=== PATIENT | male | born 1965 | race Caucasian/White ===

== ENCOUNTER 2023-05-21 10:51 | Outpatient (REF) | payer OTHER, SELFPAY ==
[2023-05-21 13:39] LABS: MANUAL DIFF FLAG NO
[2023-05-21 13:52] LABS: Basophils Absolute Auto 0.1 X10*3/uL (0.0-0.2); Basophils Percent Auto 0.8 % (0-2); Eosinophils Absolute Auto 0.1 X10*3/uL (0.0-0.4); Eosinophils Percent Auto 1.7 % (0-4); Hematocrit 47.5 % (42.0-52.0); Hemoglobin 14.8 g/dl (14.0-18.0); Imm Gran Abs Auto 0.06 X10*3/uL (0.00-0.03); Imm Gran Pct Auto 0.8 % (0.0-0.4); Lymphocytes Absolute Auto 2.3 X10*3/uL (1.2-4.9); Lymphocytes Percent Auto 29.7 % (20-40); Mean Corpuscular HGB Conc 31.2 g/dl (31.0-36.0); Mean Corpuscular Hemoglobin 28.2 pg (27.0-33.0); Mean Corpuscular Volume 90.5 fL (80.0-98.0); Mean Platelet Volume 9.5 fL (9.4-12.4); Monocytes Absolute Auto 0.5 X10*3/uL (0.1-1.2); Monocytes Percent Auto 7.1 % (2-11); Neutrophils Absolute Auto 4.6 x10*3/uL (2.0-8.3); Neutrophils Percent Auto 59.9 % (45-73); Platelet Count 345 X10*3/uL (160-400); Red Blood Count 5.25 X10*6/uL (4.60-5.80); Red Cell Distribution Width 14.7 % (11.0-16.0); White Blood Count 7.6 X10*3/uL (4.8-10.8)
[2023-05-21 14:21] LABS: Estimated Average Glucose 111 mg/dL; Hemoglobin A1c % 5.5 %
[2023-05-21 14:52] LABS: Alanine Aminotransferase 14 U/L (0-40); Albumin Level 3.9 g/dL (3.5-5.0); Alkaline Phosphatase 80 U/L (39-117); Anion Gap 12 (12-20); Aspartate Amino Transferase 14 U/L (5-37); Bilirubin Direct 0.1 mg/dL (0.0-0.5); Bilirubin Total 0.3 mg/dL (0.0-1.0); Blood Urea Nitrogen 14 mg/dL (9-16); Calcium 9.7 mg/dL (8.4-10.2); Carbon Dioxide 29 mmol/L (22-29); Chloride 101 mmol/L (96-108); Cholesterol 164 mg/dL; Estimated Glomerular Filt Rate > 60; Glucose Random 100 mg/dL (60-115); HDL Cholesterol 46 mg/dL; LDL Cholesterol Calculated 96 mg/dl; Potassium 4.1 mmol/L (3.3-5.1); Sodium 138 mmol/L (135-145); Total Protein 7.5 g/dL (6.5-8.0); Triglycerides 113 mg/dL
[2023-05-21 15:08] LABS: TSH reflex Free T4 27.34 uIU/mL (0.32-4.0)
[2023-05-21 16:48] LABS: Free T4 (Free Thyroxine) 0.87 ng/dL (0.71-1.85)
[2023-05-22 08:28] LABS: HIV AB/AG Nonreactive (Nonreactive); HIV Num 1 0.07 S/CO (0.00-0.99)
[2023-05-23 07:09] LABS: Prolactin 11.3 ng/mL (2.0-18.0)
[2023-05-27 02:58] LABS: VITAMIN D (1,25 OH) D3 35 pg/mL; Vit D (1,25-Dihydroxy) Total 35 pg/mL (18-72); Vitamin D (1,25 OH) D2 <8 pg/mL
[2023-05-27 09:14] LABS: Testosterone, Total 27 ng/dL (250-1100)
== END 2023-05-21 10:52 | disposition home or self-care (01) ==
LOC: HO.HHCL 10:51
PROVIDERS: Visit Provider Family Medicine
DX: Z11.4 Encounter for screening for human immunodeficiency virus [HIV] (principal); E03.9 Hypothyroidism, unspecified; F32.A Depression, unspecified; E78.5 Hyperlipidemia, unspecified; E66.01 Morbid (severe) obesity due to excess calories; F64.9 Gender identity disorder, unspecified; I10 Essential (primary) hypertension; Z00.00 Encounter for general adult medical examination without abnormal findings; R40.0 Somnolence
CPT/HCPCS: 36415; 80048; 80061; 80076; 82652; 83036; 84146; 84403; 84439; 84443; 85025; 87389

== ENCOUNTER 2024-03-14 13:41 | Outpatient (REF) | payer OTHER, SELFPAY ==
[2024-03-18 23:43] LABS: Cotinine, U <2 ng/mL; Nicotine, U <2 ng/mL
== END 2024-03-14 13:42 | disposition home or self-care (01) ==
LOC: HO.LAB 13:41
PROVIDERS: PCP Family Medicine; Visit Provider Family Medicine
DX: Z79.891 Long term (current) use of opiate analgesic (principal)
CPT/HCPCS: 80323

== ENCOUNTER 2024-05-10 12:17 | Outpatient (REF) | payer OTHER, SELFPAY ==
[2024-05-10 13:11] LABS: Estimated Average Glucose 117 mg/dL; Hemoglobin A1c % 5.7 % (<6.0)
[2024-05-10 13:39] LABS: Alanine Aminotransferase 11 U/L (0-40); Albumin Level 4.3 g/dL (3.5-5.0); Alkaline Phosphatase 82 U/L (39-117); Anion Gap 12 (12-20); Aspartate Amino Transferase 14 U/L (5-37); Bilirubin Direct 0.1 mg/dL (0.0-0.5); Bilirubin Total 0.3 mg/dL (0.0-1.0); Blood Urea Nitrogen 16 mg/dL (9-16); Calcium 9.8 mg/dL (8.4-10.2); Carbon Dioxide 32 mmol/L (22-29); Chloride 103 mmol/L (96-108); Cholesterol 166 mg/dL (<200); Estimated Glomerular Filt Rate > 60; Glucose Random 85 mg/dL (60-115); HDL Cholesterol 49 mg/dL (>40); LDL Cholesterol Calculated 100 mg/dL (<100); Potassium 4.5 mmol/L (3.3-5.1); Sodium 142 mmol/L (135-145); Total Protein 7.8 g/dL (6.5-8.0); Triglycerides 87 mg/dL (<150)
[2024-05-10 13:59] LABS: TSH reflex Free T4 77.03 uIU/mL (0.32-4.0)
[2024-05-15 22:49] LABS: Testosterone, Total 43 ng/dL (250-1100)
[2024-05-17 01:03] LABS: Estradiol Ultra Sensitive 43 pg/mL (< OR = 29)
== END 2024-05-10 12:18 | disposition home or self-care (01) ==
LOC: HO.HHCL 12:17
PROVIDERS: Visit Provider Family Medicine
DX: E66.01 Morbid (severe) obesity due to excess calories (principal); F64.9 Gender identity disorder, unspecified; I10 Essential (primary) hypertension; E03.9 Hypothyroidism, unspecified; Z13.1 Encounter for screening for diabetes mellitus
CPT/HCPCS: 36415; 80048; 80061; 80076; 82670; 83036; 84403; 84439; 84443

== ENCOUNTER 2024-05-23 08:48 | Outpatient (AMB) | payer OTHER, SELFPAY ==
--- NOTE | 2024-05-23 08:53 | A.OFFVIS_ITS ---
Vital Signs 05/23/24 09:04 Height 5 ft 7 in Weight 392 lb BMI 61.4 BP 186/86 H Blood Pressure Location Rt radial Position Sitting Pulse 72 Intake Visit Reasons: embedded earring Intake Note: Patient referred by pcp Dr. Mckeon for embedded earring on rt ear. X1m Would like to have it surgically removed. Patient c/o: denies pain, oozing. Wide Area Network Administrator Required: No Accompanied by: GRISEL Arriaga Allergies No Known Allergies Allergy (Unverified 05/23/24 08:58) Medication List - Last Reconciled 05/23/24 by Villa Gomez MD aspirin 81 mg PO DAILY bupropion HCl XL 300 mg PO DAILY estradiol mg PO finasteride 5 mg PO DAILY fluoxetine 40 mg PO DAILY hydroxyzine HCl 25 mg PO DAILY ibuprofen 800 mg PO TID levothyroxine 200 mcg PO DAILY nystatin 1 appl topical BID-TID sennosides (senna) 17.2 mg PO DAILY HPI Comments Details: Patient presents with her significant other. At complaint is that she has an embedded earring in the major helix of her right ear. She has multiple areas there. She has a thickened area which she claims is where the hearing his imbedded. Never had such issues before. Chart was reviewed and patient evaluate [facility] Medical History (Updated 05/23/24 @ 09:01 by KWASI Arellano) HTN (hypertension) Social History (Updated 05/23/24 @ 09:01 by KWASI Arellano) Patient Tobacco Use Status: Former Tobacco user Tobacco use type: Cigarette Physical Exam Vital Signs: Last Vital Signs Pulse 72 05/23/24 09:04 BP 186/86 H 05/23/24 09:04 BMI result Body Mass Index 61.4 HEENT Other: Patient has multiple firings involving the major helix of the right ear. There is 1 partially area which is indurated/scar which is where the patient states embedded earring is. Office Procedures Excision Details: Risks, benefits, alternatives of ear and exploration for retrieval of foreign hudson dy were reviewed with the patient and included but not limited to bleeding, infection, recurrence, numbness, pain, scarring the patient wished to proceed. Consent signed. All questions answered. After appropriate positioning, patient underwent 1% lidocaine and Betadine prep and longitudinal incision was made over the indurated area with the patient states is where the retained foreign body is situated. Wound was extensively explored with no evidence of any retained hearing. Wound was irrigated, secured hemostasis, and closed using interrupted inverted dermal 3-0 Vicryl sutures followed by bacitracin and a sterile dressing. Patient tolerated procedure well Procedure code (CPT) selection complete Office Meds lidocaine 1 %-epinephrine 1:100,000 injection solution Performing Provider: Villa Gomez MD Performing Location: [facility] Administered by: Villa Gomez MD on 05/23/24 09:42 Dose Route Admin Location Dispensed Lot Number Expiration Date [facility] Oyster Culturist 7 mL Infiltration 7 mL Assessment & Plan Assessment & Plan (1) Foreign body (FB) in soft tissue: Code(s): M79.5 - Residual foreign body in soft tissue Category: Surgical Plan: Patient and significant other have been given local instructions including bacitracin each day, ice to the wound, may shower in 2 days, and will follow-up p.r.n.. All questions answered Orders: Orders AMB Excision Today M79.5 - Residual foreign body in soft tissue Medications: New lidocaine-epinephrine 1 %-1:100,000 7 mL Infiltration ONCE 30 mL 0RF M79.5 - Residual foreign body in soft tissue Coding Level of Care Code New Pt Level 5 (06527) Diagnoses Foreign body (FB) in soft tissue M79.5
[2024-05-23 09:04] VITALS: BP 186/86; PULSE 72; BMI 61.4
== END 2024-05-23 09:35 | disposition home or self-care (01) ==
PROVIDERS: PCP Family Medicine; Visit Provider Surgery
DX: M79.5 Residual foreign body in soft tissue (principal)
CPT/HCPCS: 10120; 99204

== ENCOUNTER → 2024-05-23 08:48 | Outpatient (BNVA) | payer OTHER, SELFPAY | PROVIDERS: PCP Family Medicine; Visit Provider Surgery | DX: M79.5 Residual foreign body in soft tissue (principal) | CPT/HCPCS: 10120; 99202 ==

== ENCOUNTER 2024-07-12 10:45 | Outpatient (REF) | payer OTHER, SELFPAY ==
[2024-07-12 13:40] LABS: Creatinine Urine 92.43 mg/dL; Microalbum/Creatinine Ratio Ur 70.3 ug/mg cr (<30)
== END 2024-07-12 10:46 | disposition home or self-care (01) ==
LOC: HO.LAB 10:45
PROVIDERS: PCP Family Medicine; Visit Provider Family Medicine
DX: I10 Essential (primary) hypertension (principal)
CPT/HCPCS: 82043; 82570

== ENCOUNTER 2024-07-15 11:09 | Outpatient (REF) | payer OTHER, SELFPAY ==
[2024-07-28 22:18] LABS: Cotinine, U <2 ng/mL; Nicotine, U <2 ng/mL
== END 2024-07-15 11:10 | disposition home or self-care (01) ==
LOC: HO.LAB 11:09
PROVIDERS: Visit Provider Surgery Plastic and Reconstructive Surgery
DX: F64.9 Gender identity disorder, unspecified (principal); Z78.9 Other specified health status
CPT/HCPCS: 80323

== ENCOUNTER 2024-11-11 12:52 | Outpatient (AMB) | payer OTHER, SELFPAY ==
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
--- OUTSIDE RECORDS SUMMARY | 2024-11-11 12:54 | XMS_ITS | Continuity of Care Document ---
Author Organization [facility] Address [address] [place] [id number]- Care Team Providers Care Ground Water Contractor Name Role Phone Mary Carmen Mckeon MD Primary Care Physician [id number] Date(s): 09/26/24 - 10/26/[address] [address]- Attending Physician: Ronald Hayes Admitting Physician: Ronald Hayes Referring Physician: Ronald Hayes Encounter Type: Triage Medications aspirin 81 mg oral tablet 1 tablet = 81 mg, By Mouth, Daily, 0 Refills, Maintenance, 11/04/18 2:52:34 PM EST Start Date: 11/04/18 Status: Ordered Repeat number: 1 BuPROpion = 300 mg, By Mouth, 0 Refills, Maintenance, 11/04/18 2:52:54 PM EST Start Date: 11/04/18 Status: Ordered Repeat number: 1 Estradiol 0 Refills, Maintenance, 11/04/18 2:53:25 PM EST Start Date: 11/04/18 Status: Ordered Repeat number: 1 Fluoxetine = 40 mg, By Mouth, 0 Refills, Maintenance, 11/04/18 2:53:45 PM EST Start Date: 11/04/18 Status: Ordered Repeat number: 1 levothyroxine 200 mcg (0.2 mg) intravenous injection 0 Refills, Maintenance, 11/04/18 2:55:09 PM EST Start Date: 11/04/18 Status: Ordered Repeat number: 1 Proscar 5 mg oral tablet 1 tablet = 5 mg, By Mouth, Daily, 0 Refills, Maintenance, 11/04/18 2:55:22 PM EST Start Date: 11/04/18 Status: Ordered Repeat number: 1 Spironolactone By Mouth, 0 Refills, Maintenance, 11/04/18 2:55:37 PM EST Start Date: 11/04/18 Status: Ordered Repeat number: 1 Social History Social History Type Response Smoking Status Former smoker, quit more than 30 days ago entered on: 11/04/18 Sex Sex Representation Male (finding) Patient Care team information Care Team Personnel Name: Mike BACK , Mary Carmen Lance Position: S Outreach Member Role: PCP Address: [address] [place] [address] Telecom: Care Team Related Persons Name: MAGED ALAN Insurance Providers Guarantor name: [facility] Information #: 1 Payer: [facility]ONE [employer] Member Number: NA Policy Number: NA Group Number: [id number]
--- OUTSIDE RECORDS SUMMARY | 2024-11-11 12:54 | XMS_ITS | Data Portability ---
Author Organization [employer] [facility], [facility] Address [address] [place] [id number] Care Team Providers Care Television Host Name Role Phone [facility] Referring Provider [phone] Assessment Encounter Date Assessment Date Assessment LastModified by Organization Details LastModified Time 04/06/2023 04/06/2023 I provided real -time medical direction via phone for this encounter, and was available for additional phone based assistance as needed. I have reviewed and agree with the Assessment and Plan as documented by the Data Entry Processor. Patient given the opportunity to ask questions. Advised if develops CP/severe SOB/turning blue// syncope/ hi fever - to call 911- otherwise f/u with pcp this week- verbalized understanding of instructions [email or web address] Not available 04/06/2023 22:33:17 Plan of Treatment Reminders Order Date Submit Date Provider Last Modified By Organization Details Last Modified Time Details Appointments None recorded. Lab BMP, serum or plasma 2022 023 [email or web address] 0 [facility], [address] [place] [address], [phone], 22:35:45 Referral None recorded. Procedures None recorded. Surgeries None recorded. Imaging None recorded. Medication Orders Tylenol Arthritis Pain 650 mg tablet,ext ended release 2022 023 [email or web address] 0 [facility], [address] [place], [address], 3 22:30:38 ketorolac 30 mg/mL (1 mL) injection solution 2022 023 [email or web address] 0 [facility], [address] [place], [address], 3 22:30:38 Patient TargetsNo targets recorded. Patient InstructionsNo instructions recorded. Reason for Referral None Reported. Results Created Date Observation Date Name Description Value Unit Range Abnormal Flag Note LastModifiedBy Organization Detail LastModifiedTime 04/06/2004/06/2023 BMP, serum or plasm a BUN 18 Not Available Main - [facility] [address], [address], 04/06/2023 15:17:29 04/06/2004/06/2023 BMP, serum or plasm a Ca I erin 1.14 Not Available Main - [address], [address], 04/06/2023 15:17:29 04/06/2004/06/2023 BMP, serum or plasm a CI- 97 Not Available Main - Ins [address], [address], 04/06/2023 15:17:29 04/06/2004/06/2023 BMP, serum or plasm a CRE 1.3 Not Available Main - [facility] [address], [address], 04/06/2023 15:17:29 04/06/2004/06/2023 BMP, serum or plasm a GLU 96 Not Available Main - [facility] [address], [address], 04/06/2023 15:17:29 04/06/2004/06/2023 BMP, serum or plasm a K+ 4.4 Not Available Main - Ins [address], [address], 04/06/2023 15:17:29 04/06/2004/06/2023 BMP, serum or plasm a Na+ 138 Not Available Main - Ins [address], [address], 04/06/2023 15:17:29 04/06/2004/06/2023 BMP, serum or plasm a tCO2 32 Not Available Main - Ins [facility] [address] [place] [address], [place], [address], 04/06/2023 15:17:29 Result Notes None recorded. Medical Equipment None Reported. Allergies No known drug allergies Medications Name Sig Start Date Stop Date Status Note LastModified by Organization Details LastModified Time fluoxetine 40 mg capsule active Not Available Not Available N ot Available ibuprofen 800 mg tablet active Not Available Not Available No t Available senna 8.6 mg tablet active Not Available Not Available Not Available spironolactone 100 mg tablet active Not Available Not Availabl e Not Available aspirin 81 mg tablet,delayed release active Not Available Not Available Not Available ketorolac 30 mg/mL (1 mL) injection solution 15 mg IM x 1 for knee pain 2022 active Not Available Not Available Not Avai lable acetaminophen ER 650 mg tablet,extended release Take 2 tablets every 8 hours by oral route as needed. active Not Available Not Available No t Available estradiol 1 mg tablet active Not Available Not Available Not Available nicotine 21 mg/24 hr daily transdermal patch active Not Available Not Available Not Available estradiol 2 mg tablet active Not Available Not Available Not Available hydroxyzine HCl 25 mg tablet active Not Available Not Available Not Available levothyroxine 200 mcg tablet active Not Available Not Availab le Not Available ibuprofen 600 mg tablet active Not Available Not Available No t Available finasteride 5 mg tablet active Not Available Not Available No t Available bupropion HCl XL 300 mg 24 hr tablet, extended release active Not Available Not Available Not Available Vitals Date Recorded Respiratory rate Body weight Heart rate Body temperature Oxygen saturation Oxygen saturation in Arterial blood by Pulse oximetry Systolic blood pressure Diastolic blood pressure Provider Name and Address Organization Details Last Updated DateTime 3 18 /min 427501. 8 g 70 /min 98.2 [degF] 98 % 98 % 142 mm[Hg] 92 mm[Hg] Not Available [facility] - production 14:46:20 Social History None recorded. Functional Status None recorded. Mental Status None recorded. Family History Nothing Reported. Medical History No medical history recorded. Past Encounters Encounter ID Performer Location Encounter Start Date Encounter Closed Date Diagnosis/Indication Diagnosis SNOMED-CT Code Diagnosis ICD10 Code Diagnosis Note [id number] Penelope Prabhakar MD Main - [facility] [address] [place] [id number] 04/06/2023 14:46:03 04/07/2023 15:50:23 Peripheral edema 628438917 R60.9 w/ pain- mild swelling- gradual onset over months-no evidence of CHF clinically / pain more likely OA exacerbate d by weight- would not add extra diuretic at this time- advised lo salt diet/ elevation of legs( has been leaving LE dependent w/ prolonged sitting.Warner ggested getting accurate bariatric scale for home - easy way to monitor fluid overload if gaining weight over course of several days.Will give 1 dose ketorolac- advised to hold ibuprofen until d/w pcp due to mild cr elevation( do not want to exacerbate - will RX Tylenol arthritis Would benefit from compressio n stockings- may need custom due to leg circumfere nce- sent RX to medical supply- d/w patient if unable to fill will need to discuss w/ PCP. Also advised need for podiatry referral re nails - she will d/w pcp Health Concerns Section Related Observation LastModified by Organization Detai ls LastModified Time None Recorded Concern Status LastModified by Organization Details LastModified Time None Recorded Advance Directives Directive None Recorded Payers Encounter Date Sequence Insurance Name Policy Number Policy Lucio Covered Member ID Lucio Member ID Guarantor Name 04/06/2023 1 [facility] [place] - DOS ON OR AFTER 2023 - DUAL ELIGIBLE - [employer] AND ONE [employer] (MEDICARE REPLACEMENT/ADV ANTAGE - HMO) Yokasta Cardenas [id number] Yokasta Cardenas Notes Date Note Type Note Provider Name and Address Organization Details Recorded Time 04/06/2023 text/html [facility] Nursing Assessment: Reason For Request: Spiralactone, thyroid pill pt states pain and swelling in his legs and feet. Pt states there could be fluid. Symptoms going on a while. Just found out about [facility]. 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 Chief Complaints: Edema PMH: Hypertension Allergies: No Known Comments: Member calling with request for [facility] visit for eval bilat foot pain/swelling x ?6 months. Deny fever/chills. Takes [id number] 100mg bid without relief. Deny other symptoms at this time. Deny/fever chills. Verify name/- SEGMD: as above- transgender female on 100 mg aldactone 2 x per day- scale broken cannot get accurate weight- estimated 400 lbs- feels legs more swollen/mostly knees sore - no fever/ chills/ no CP/ SOB - pat does not have any APAP- taking ibuprofen 800 mg several x per week. Pat is on finasteride as testosterone sherwin and estradiol. Not following dietary restrictions...... .................. .................. .................. .................. .................. .................. .................. .......... Data Entry Processor Note From Kali Tapia: Pt presents A@Ox4. Merom warm and dry with clear airway. Pt c/o swelling/pain in feet and knees for past 6 months using ibuprofen for pain relief with little effect. Pt also c/o right toe pain and black toe nail. Neg for trauma. Pt denies SOB CP fever nausea. Pt sts does not walk much only to bathroom or kitchen. Baseline vitals assessed and recorded. Vital stable. extremities assessed. Minor swelling in feet and right big toe with a black nail. Minor pink skin tone to area, neg for weeping or open wounds. Palpated with no soreness POC blood draw unremarkable. C contacted and 15mg torado! IM and RX for tylenol called. Compression sock attempted to prescribe. If not pt advised to get prescription for the socks from PCP. Pt advised to follow up with PCP and podiatry. Pt educated on signs that would indicate the ED .................. .................. .................. .................. .................. .................. .................. ............... Disposition: Fulfilled Penelope Prabhakar MD [address] [place] [address],[address], [place], [phone], CASEY QUINTERO 04/06/2023 22:36:03
[2024-11-11 12:55] VITALS: BP 124/76; PULSE 65; BMI 61.8
== END 2024-11-11 14:24 | disposition home or self-care (01) ==
PROVIDERS: PCP Family Medicine
DX: Z01.810 Encounter for preprocedural cardiovascular examination (principal); R94.31 Abnormal electrocardiogram [ECG] [EKG]; R60.0 Localized edema; I10 Essential (primary) hypertension
CPT/HCPCS: 93010; 99204

== ENCOUNTER → 2024-11-11 12:52 | Outpatient (BNVA) | payer OTHER, SELFPAY | PROVIDERS: PCP Family Medicine | DX: Z01.810 Encounter for preprocedural cardiovascular examination (principal); R94.31 Abnormal electrocardiogram [ECG] [EKG]; R60.0 Localized edema; I10 Essential (primary) hypertension | CPT/HCPCS: 93005; 99202 ==

== ENCOUNTER 2024-11-24 12:07 | Outpatient (REF) | payer OTHER, SELFPAY ==
[2024-11-24 13:33] LABS: MANUAL DIFF FLAG NO
[2024-11-24 13:46] LABS: Basophils Absolute Auto 0.1 X10*3/uL (0.0-0.2); Basophils Percent Auto 0.5 % (0-2); Eosinophils Absolute Auto 0.1 X10*3/uL (0.0-0.4); Eosinophils Percent Auto 1.3 % (0-4); Hematocrit 43.7 % (42.0-52.0); Hemoglobin 13.6 g/dl (14.0-18.0); Imm Gran Abs Auto 0.04 X10*3/uL (0.00-0.03); Imm Gran Pct Auto 0.4 % (0.0-0.4); Lymphocytes Percent Auto 21.7 % (20-40); Mean Corpuscular HGB Conc 31.1 g/dl (31.0-36.0); Mean Corpuscular Hemoglobin 28.3 pg (27.0-33.0); Mean Platelet Volume 9.6 fL (9.4-12.4); Monocytes Absolute Auto 0.8 X10*3/uL (0.1-1.2); Monocytes Percent Auto 8.5 % (2-11); Neutrophils Absolute Auto 6.2 x10*3/uL (2.0-8.3); Neutrophils Percent Auto 67.6 % (45-73); Platelet Count 275 X10*3/uL (160-400); Red Cell Distribution Width 15.4 % (11.0-16.0); White Blood Count 9.2 X10*3/uL (4.8-10.8)
[2024-11-24 13:54] LABS: Estimated Average Glucose 117 mg/dL; Hemoglobin A1C 139.7248 umol/L; Hemoglobin A1c % 5.7 % (<6.0); Total Hemoglobin (HGBA1C) 3578.7304 umol/L
[2024-11-24 14:18] LABS: Alanine Aminotransferase 12 U/L (0-40); Albumin Level 3.7 g/dL (3.5-5.0); Alkaline Phosphatase 80 U/L (39-117); Anion Gap 9 (12-20); Aspartate Amino Transferase 19 U/L (5-37); Bilirubin Direct 0.1 mg/dL (0.0-0.5); Bilirubin Total 0.3 mg/dL (0.0-1.0); Blood Urea Nitrogen 12 mg/dL (9-16); Calcium 9.2 mg/dL (8.4-10.2); Carbon Dioxide 30 mmol/L (22-29); Chloride 105 mmol/L (96-108); Cholesterol 118 mg/dL (<200); Estimated Glomerular Filt Rate > 60; Glucose Random 83 mg/dL (60-115); HDL Cholesterol 42 mg/dL (>40); LDL Cholesterol Calculated 61 mg/dL (<100); Potassium 4.1 mmol/L (3.3-5.1); Sodium 140 mmol/L (135-145); TSH reflex Free T4 4.51 uIU/mL (0.32-4.0); Total Protein 7.4 g/dL (6.5-8.0); Triglycerides 75 mg/dL (<150)
--- OUTSIDE RECORDS SUMMARY | 2024-11-24 14:30 | XMS_ITS | Data Portability ---
Author Organization [employer] [facility], [facility] Address [address] [place] [phone] Care Team Providers Care Air Traffic Supervisor Name Role Phone [facility] Referring Provider Assessment Encounter Date Assessment Date Assessment LastModified by Organization Details LastModified Time 04/06/2023 04/06/2023 I provided real -time medical direction via phone for this encounter, and was available for additional phone based assistance as needed. I have reviewed and agree with the Assessment and Plan as documented by the Project Manager Retail. Patient given the opportunity to ask questions. Advised if develops CP/severe SOB/turning blue// syncope/ hi fever - to call 911- otherwise f/u with pcp this week- verbalized understanding of instructions [email or web address] Not available 04/06/2023 22:33:17 Plan of Treatment Reminders Order Date Submit Date Provider Last Modified By Organization Details Last Modified Time Details Appointments None recorded. Lab BMP, serum or plasma 2022 023 [email or web address] 0 [facility], [address] [place] [address], [phone], 22:35:45 Referral None recorded. Procedures None recorded. Surgeries None recorded. Imaging None recorded. Medication Orders Tylenol Arthritis Pain 650 mg tablet,ext ended release 2022 023 [email or web address] 0 [facility], [address] [place], [address], 3 22:30:38 ketorolac 30 mg/mL (1 mL) injection solution 2022 023 [email or web address] 0 [facility], [address] [place], [address], 3 22:30:38 Patient TargetsNo targets recorded. Patient InstructionsNo instructions recorded. Reason for Referral None Reported. Results Created Date Observation Date Name Description Value Unit Range Abnormal Flag Note LastModifiedBy Organization Detail LastModifiedTime 04/06/2004/06/2023 BMP, serum or plasm a BUN 18 Not Available Main - [facility] [address], [address], 04/06/2023 15:17:29 04/06/2004/06/2023 BMP, serum or plasm a Ca I erin 1.14 Not Available Main - [address], [address], 04/06/2023 15:17:29 04/06/2004/06/2023 BMP, serum or plasm a CI- 97 Not Available Main - [facility] [address], [address], 04/06/2023 15:17:29 04/06/2004/06/2023 BMP, serum or plasm a CRE 1.3 Not Available Main - [facility] [address], [address], 04/06/2023 15:17:29 04/06/2004/06/2023 BMP, serum or plasm a GLU 96 Not Available Main - [facility] [address], [address], 04/06/2023 15:17:29 04/06/2004/06/2023 BMP, serum or plasm a K+ 4.4 Not Available Main - [facility] [address], [address], 04/06/2023 15:17:29 04/06/2004/06/2023 BMP, serum or plasm a Na+ 138 Not Available Main - [facility] [address], [address], 04/06/2023 15:17:29 04/06/2004/06/2023 BMP, serum or plasm a tCO2 32 Not Available Main - Ins [facility] [address] [place] [address], [place], [address], 04/06/2023 15:17:29 Result Notes None recorded. Medical [...] Details Last Updated DateTime 3 18 /min 573556. 8 g 70 /min 98.2 [degF] 98 % 98 % 142 mm[Hg] 92 mm[Hg] Not Available [facility] - production 14:46:20 Social History None recorded. Functional Status None recorded. Mental Status None recorded. Family History Nothing Reported. Medical History No medical history recorded. Past Encounters Encounter ID Performer Location Encounter Start Date Encounter Closed Date Diagnosis/Indication Diagnosis SNOMED-CT Code Diagnosis ICD10 Code Diagnosis Note [id number] Penelope Prabhakar MD Main - [facility] [address] [place] [phone] 04/06/2023 14:46:03 04/07/2023 15:50:23 Peripheral edema 731202554 R60.9 w/ pain- mild swelling- gradual onset [...] Lucio Member ID Guarantor Name 04/06/[address] [facility] - DOS ON OR AFTER 2023 - DUAL ELIGIBLE - DETENTION OPTIONS AND ONE CARE (MEDICARE REPLACEMENT/ADV ANTAGE - HMO) Yokasta Cardenas [id number] Yokasta Cardenas Notes Date Note Type Note Provider Name and Address Organization Details Recorded Time 04/06/2023 text/html [facility] Nursing Assessment: Reason For Request: Spiralactone, thyroid pill pt states pain and swelling in his legs and feet. Pt states there could be fluid. Symptoms going on a while. Just found out about [facility]. Pt does have TABLE TENDER SLUDGE and life alert. Chief Complaints: Edema PMH: Hypertension Allergies: No Known Comments: Member calling with request for [facility] visit for eval bilat foot pain/swelling x ?6 months. Deny fever/chills. Takes [id number] 100mg bid without relief. Deny other symptoms [...] .................. .................. .................. .................. .................. .................. .......... Project Manager Retail Note From Kali Tapia: Pt presents A@Ox4. [place] warm and dry with clear airway. Pt [...] .................. ............... Disposition: Fulfilled Penelope Prabhakar MD [address] [place] [address],[address], [place], [phone], CASEY QUINTERO 04/06/2023 22:36:03
[2024-11-24 14:54] LABS: Free T4 (Free Thyroxine) 1.21 ng/dL (0.71-1.85)
== END 2024-11-24 12:08 | disposition home or self-care (01) ==
LOC: HO.HHCL 12:07
PROVIDERS: Visit Provider Family Medicine
DX: E66.813 Obesity, class 3 (principal); E66.01 Morbid (severe) obesity due to excess calories; Z68.44 Body mass index [BMI] 60.0-69.9, adult; Z13.1 Encounter for screening for diabetes mellitus; Z13.29 Encounter for screening for other suspected endocrine disorder
CPT/HCPCS: 36415; 80048; 80061; 80076; 83036; 84439; 84443; 85025

== ENCOUNTER → 2025-01-23 13:58 | Outpatient (REF) | payer OTHER, SELFPAY ==
--- NOTE | 2025-01-23 14:04 | CA_ITS ---
Transthoracic Echocardiogram Patient (Last, First, Middle): Yokasta Cardenas Marie Gender: Male Date of : 1965 Age: 59 Procedure Date: 01/23/2025 Procedure Type: Transthoracic Echocardiogram Location: OP Height: 170. cm Weight: 174.64 kg BSA: 2.67 m2 Heart Rate: 59 bpm BP: 150 / [address] Reporter: GISSELL Perez MD: Addison Araujo NP Extractive Metallurgist: Venancio Curran MD Symptoms: R06.02 - Shortness of breath Study Quality: Technically Difficult w/Contrast ECG Rhythm: Sinus Conclusions: - 1. Normal LV ejection fraction 55-60% with impaired relaxation filling pattern 2. Cardiac valvular Dopplers within normal limits 3. Mildly dilated ascending aorta at 3.7 cm Findings Procedure Information Contrast agent, definity, is being given per protocol without apparent complications. Left Ventricle The left ventricle was not well visualized. The left ventricular systolic function is normal. The visually estimated ejection fraction is between 55 60%. Spectral Doppler is indicative of an impaired relaxation filling pattern. Right Ventricle The right ventricle was not well visualized. Atria The left atrium is normal in size. Interatrial shunt cannot be excluded. The right atrium was not well visualized. Aortic Valve The aortic valve was not well visualized. There is no aortic valve stenosis. There is no aortic valve regurgitation. Mitral Valve The mitral valve was not well visualized. There is trace mitral valve regurgitation. There is no mitral valve stenosis. Pulmonic Valve The pulmonic valve was not well visualized. Tricuspid Valve The tricuspid valve was not well visualized. Tricuspid regurgitation envelope is inadequate for calculation of right ventricular systolic pressure. Normal right atrial pressure. Great Vessels The pulmonary artery was not well visualized. There is mild dilatation of the ascending aorta measuring 3.70 cm. Venous The inferior vena cava is normal in size and collapses greater than 50% with inspiration. Pericardium/Pleural The pericardium was not well visualized. Prior Study Comparison No prior study available for comparison. Measurements 2D Linear Measurements IVSd: 1.27 0.6-0.9/0.6-1.0 cm LVIDd: 4.40 3.9-5.3/4.2-5.9 cm LVIDd Index: 1.65 2.4-3.2/2.2-3.1 cm/m2 LVIDs: 2.45 2.0-3.6 cm LVPWd: 1.05 0.7-1.1 cm LA Diam: 3.20 2.7-3.8/3.0-4.0 cm LAIDs Index: 1.20 1.5-2.3 cm/m2 LV Mass: 227.01 67-162/88-224 g LV Mass Index: 85.02 43-95/49-115 g/m2 LVOT Diam: 2.10 3.0+(-)1.3 cm 2D Systolic Function EF 4C: 59.40 >55% EF 2C: 61.80 >55% EF BiP: 58.60 >55% Mitral Valve MV Pk E: 0.84 MV PK A: 0.88 MV Decel Time: 319.00 E/A: 1.00 E'Lateral: 8.81 E'Medial: 5.44 E/E' Med: 15.40 E/E' Lat: 9.50 PHT: 93.00 MVA PHT: 2.37 Decel [place]: 2.62 Aortic Valve AoV Pk Kendall: 1.45 AoV Mn Kendall: 0.99 AoV VTI: 0.29 AoV Pk Grad: 8.00 Aov Mn Grad: 5.00 MAUDE Cont.VTI: 3.29 LVOT LVOT Pk Kendall: 1.27 LVOT Mn Kendall: 0.87 LVOT VTI: 0.27 LVOT Pk Grad: 6.00 LVOT Mn Grad: 3.00 LVOT Diam: 2.10 LVOT Area: 3.46 Diastolic Function MV Pk E: 0.84 MV Pk A: 0.88 E/A: 1.00 E'Medial: 5.44 E/E' Med: 15.40 E' Laterial: 8.81 E/E' Lat: 9.50 Right Ventricle TAPSE (mm): 26.90 TVS' Kendall: 13.40 Tricuspid Valve RA Press: 3.00 Great Vessels Aorta Sinus of Valsalva: 3.30 2.0-3.5 cm Ao Asc: 3.70 2.1-3.4 cm Pulmonary Valve PV Pk Kendall: 1.15 Peak PV Grad: 5.00 Updated in Other Vendor System with Status of Final Venancio Curran MD electronically signed on 01/23/2025 4:27:53 PM with status of Final
== END ==
LOC: HO.CARD 13:58
PROVIDERS: PCP Family Medicine
DX: R06.02 Shortness of breath (principal); R00.0 Tachycardia, unspecified
CPT/HCPCS: 93306; Q9957

== ENCOUNTER → 2025-01-23 14:04 | Outpatient (BNV) | payer OTHER, SELFPAY | PROVIDERS: PCP Family Medicine; Visit Provider Internal Medicine Cardiovascular Disease | DX: I42.8 Other cardiomyopathies (principal); I71.21 Aneurysm of the ascending aorta, without rupture | CPT/HCPCS: 93306 ==

== ENCOUNTER 2025-03-24 12:28 | Outpatient (AMB) | payer OTHER, SELFPAY ==
[2025-03-24 13:08] VITALS: BP 161/92; PULSE 60; O2SAT 94; BMI 60.0
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
== END 2025-03-24 14:06 | disposition home or self-care (01) ==
LOC: HO.PMC 12:28
PROVIDERS: PCP Family Medicine; Referring Provider Family Medicine; Visit Provider Nurse Practitioner Family
DX: M47.817 Spondylosis without myelopathy or radiculopathy, lumbosacral region (principal); M54.50 Low back pain, unspecified; G89.29 Other chronic pain; M51.369 Other intervertebral disc degeneration, lumbar region without mention of lumbar back pain or lower extremity pain; E66.01 Morbid (severe) obesity due to excess calories; Z68.44 Body mass index [BMI] 60.0-69.9, adult; I87.2 Venous insufficiency (chronic) (peripheral); M25.561 Pain in right knee; M25.562 Pain in left knee
CPT/HCPCS: 99204

== ENCOUNTER → 2025-03-24 12:28 | Outpatient (BNVA) | payer OTHER, SELFPAY | PROVIDERS: PCP Family Medicine; Referring Provider Family Medicine; Visit Provider Nurse Practitioner Family | DX: M47.817 Spondylosis without myelopathy or radiculopathy, lumbosacral region (principal); G89.29 Other chronic pain; M51.360 Other intervertebral disc degeneration, lumbar region with discogenic back pain only; I87.2 Venous insufficiency (chronic) (peripheral); I73.9 Peripheral vascular disease, unspecified; M25.561 Pain in right knee; M25.562 Pain in left knee; E66.01 Morbid (severe) obesity due to excess calories; Z68.44 Body mass index [BMI] 60.0-69.9, adult | CPT/HCPCS: 99202 ==

== ENCOUNTER 2025-04-20 13:44 | Outpatient (AMB) | payer OTHER, SELFPAY ==
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
--- OUTSIDE RECORDS SUMMARY | 2025-04-20 14:57 | XMS_ITS | Referral Summary ---
Author Organization [facility] Address [address] [place] [address] Care Team Providers Care Extrusion Machine Operator Name Role Phone Mary Carmen Mckeon Primary Care Provider [phone]- [phone] Allergies No known active allergies Medications estradioL (ESTRACE) 1 mg tablet Take 1 mg by mouth once a day. 5mg daily Active ibuprofen (MOTRIN) 800 mg tablet every 8 hours as needed. 3 Active aspirin 81 mg EC tablet Take 81 mg by mouth once a day. 3 Active buPROPion XL (WELLBUTRIN XL) 300 mg tablet Take 1 tablet by mouth once a day. 3 Active clotrimazole (LOTRIMIN) 1% cream APPLY TOPICALLY TWO TIMES A DAY (BULK) 3 Active finasteride (PROSCAR) 5 mg tablet Take 1 tablet by mouth once a day. 3 Active FLUoxetine (PROzac) 40 mg capsule Take 1 tablet by mouth once a day. 3 Active levothyroxine (SYNTHROID, LEVOTHROID) 200 mcg tablet Take 1 tablet by mouth once a day. 3 Active hydrOXYzine HCL (ATARAX) 25 mg tablet TAKE 1 TABLET BY MOUTH AT BEDTIME NEEDED (VIAL) 3 Active senna (SENOKOT) 8.6 mg tablet TAKE TWO TABLETS BY MOUTH EVERY DAY NEEDED FOR CONSTIPATION (VIAL) ^VIAL 3 Active spironolactone (ALDACTONE) 100 mg tablet Take 1 tablet by mouth 2 times a day. 3 Active Active Problems No known active problems Social History Tobacco Use Types Packs/Day Years Used Date Smoking Tobacco: Former Cigarettes Smokeless Tobacco: Former Alcohol Use Standard Drinks/Week Comments Not Currently 0 (1 standard drink = 0.6 oz pur e alcohol) Sex and Gender Information Value Date Recorded Sex Assigned at Male 07/26/2024 11:15 AM EDT Legal Sex Female 11:56 AM EDT Gender Identity Female 07/26/2024 11:15 AM EDT Sexual Orientation Straight 04/13/2024 2: 33 PM EDT Last Filed Vital Signs Vital Sign Reading Time Taken Comments Blood Pressure 153/86 07/26/2024 12:17 PM EDT Pulse 62 07/26/2024 12:17 PM EDT Temperature 36.9 C (98.5 F) 07/26/2024 12:17 PM EDT Respiratory Rate 20 07/26/2024 12:17 PM EDT Oxygen Saturation 96% 07/26/2024 12:17 PM EDT Inhaled Oxygen Concentration - - Weight 179.2 kg (395 lb) 07/26/2024 12:17 PM EDT Height 170.2 cm (5' 7 ) 07/26/2024 12:17 PM EDT Body Mass Index 61.87 07/26/2024 12:17 PM EDT Plan of Treatment Not on file Insurance [facility] Advance Directives Documents on File Type Date Recorded Patient Content Checker Expl anation Health Care Proxy 07/26/2024 12:55 PM * Full Code (Latest Code Status on File) Date Activated Date Inactivated Comments 07/26/2024 11:45 AM 07/26/2024 6:21 PM Care Teams Extrusion Machine Operator Relationship Specialty Start Date End Date Mary Carmen Mckeon [address] [place] [address] PCP - General Family Medicine 08/24/23
== END 2025-04-20 14:15 | disposition home or self-care (01) ==
LOC: HO.HVS 13:46
PROVIDERS: PCP Family Medicine; Visit Provider Physician Assistant Surgical
DX: I83.11 Varicose veins of right lower extremity with inflammation (principal); I83.12 Varicose veins of left lower extremity with inflammation
CPT/HCPCS: 99204

== ENCOUNTER → 2025-04-20 13:44 | Outpatient (BNVA) | payer OTHER, SELFPAY | PROVIDERS: PCP Family Medicine; Visit Provider Physician Assistant Surgical | DX: I83.11 Varicose veins of right lower extremity with inflammation (principal); I83.12 Varicose veins of left lower extremity with inflammation | CPT/HCPCS: 99202 ==

== ENCOUNTER → 2025-06-22 10:09 | Outpatient (REF) | payer OTHER, SELFPAY ==
--- NOTE | ~2025-06-22 | NM_ITS ---
Lexiscan Myocardial perfusion study Indication: Preoperative cardiovascular risk stratification Technique: The patient was brought in for a Lexiscan perfusion study on 06/22/2025 and was injected 0.4 mg of Lexiscan intravenously. Within a minute of this injection 45 mCi of sestamibi was given intravenously. Images were obtained using the SPECT gamma camera interlaced with the gating device. Images were obtained in supine position. Resting perfusion study was performed on 07/14/2025. Patient was administered 45 mCi of sestamibi intravenously at rest. Images were then obtained in supine position. Images obtained without without CT attenuation. Total DLP 154 mGy-cm. Images were processed with the software and compared side to side in short axis, horizontal long axis and vertical long axis views. Findings: Both stress and rest perfusion study was suboptimal due to intense subdiaphragmatic uptake in the liver as well as the stomach interfering with inferior wall uptake. The stress perfusion study showed nonattenuated images show moderately reduced uptake in the basal inferior wall of the LV myocardium. Remainder of the LV myocardium is normally perfused. Attenuated corrected images show uniform but diffusely but minimally reduced uptake in all segments of the LV myocardium. The gated study shows normal LV systolic function with calculated LVEF of 61%. LV cavity is normal in size. The gated study shows normal systolic wall thickening and contraction of segments. Resting study shows nonattenuated images show no change in perfusion pattern compared to stress perfusion. Gating at rest reveals normal systolic wall motion with ejection fraction at 60%. The findings are consistent with likely normal myocardial perfusion with low confidence of interpretation. NM/NM cardiolite stress test Impression: 1. Myocardial perfusion imaging study shows likely normal myocardial perfusion 2. Gated LVEF is 60% 3. Transient ischemic dilatation not present Nondiagnostic changes on EKG. Electronically signed by: Venancio Curran MD 07/15/2025 12:05 PM EDT
--- NOTE | 2025-06-22 10:12 | CA_ITS ---
Acquisition Time: 2025-06-22 10:26:45 Total Exercise Time: 00:02:00 Test Indications: Abnormal ECG,Pre-Op Evaluation Medications: ASA BUPROPION FINASTERIDE FLUOXETINE LEVOTHYROXINE HYDROXIZIONE Protocol: LEXISCAN Max HR: 77 BPM 48% of Pred: 160 BPM Max BP: 132/92 mmHG Max Work Load: 1.0 METS Pharmacological stress test with Lexiscan while pt swings her legs in chair, with reports of fuzzy feeling, with isolated PVcs, with normotensive repsonse to injection. Nondiagnostic EKG for ischemia. In recovery, pt feeling back to baseline. Nuclear images pending. Test reviewed with Dr. Curran. Referred By: Addison Araujo Electronically Signed By: Addison Araujo
--- OUTSIDE RECORDS SUMMARY | 2025-06-22 11:35 | XMS_ITS | Encounter Summary ---
Author Organization [employer] Address [address] [facility] [address] [place] [address] Care Team Providers Care Wash Tank Tender Name Role Phone Mary Carmen Mckeon MD Primary Care Provider [phone]- [phone] Suly Mendoza PharmD Unavailable Quiana Keene Unavailable Sintia Petty Unavailable Kimmie Zamora MD Unavailable Reason for Visit * Reason Comments Med Refill Encounter Details Date Type Department Care Team (Late st Contact Info) Description 12/25/2022 Refill [facility] [address] [place] [address] Mary Carmen Mckeon MD [address] [place] [address] [phone] Pain Social History Tobacco Use Types Packs/Day Years Used Date Smoking Tobacco: Never Assessed Sex and Gender Information Value Date Recorded Sex Assigned at Male 09/01/2022 10:24 AM EDT Legal Sex Female 10:24 AM EDT Gender Identity Transgender Female 09/01/2022 10 :24 AM EDT Sexual Orientation Choose not to disclose 2021 10:24 AM EDT documented as of this encounter Plan of Treatment Upcoming Encounters Date Type Department Care Team (Late st Contact Info) Description 08/16/2025 10:15 AM EDT Office Visit [facility] MEDICINE [address] [place], [place] [phone] Mary Carmen Mckeon MD [address] [place] [address] documented as of this encounter Visit Diagnoses Diagnosis Pain Generalized pain documented in this encounter Care Teams Wash Tank Tender Relationship Specialty Start Date End Date Mary Carmen Mckeon MD [address] [place] [address] PCP - General Family Medicine 10/04/18 Suly Mendoza, JamaD [address] [place] [address] Pharmacist Internal Medicine 08/17/24 Quiana Keene [address] Plastic Surgery 01/06/25 Sintia Petty [address] [place] [phone] Pain Medicine 03/28/25 Kimmie Zamora MD [address] [place] [address] Sleep Medicine 03/29/25 Addison Araujo HOME DEMONSTRATOR Cardiology 11/24/24 Jeanie Day PA-C Vascular Surgery 04/21/25 documented as of this encounter
--- OUTSIDE RECORDS SUMMARY | 2025-06-22 11:35 | XMS_ITS | Clinical Summary ---
Author Organization [facility] Address [address] [facility] [address] [place] [phone] Phone Care Team Providers Care Word Processing Specialist Name Role Phone Mary Carmen Mckeon MD Primary Care Provi daphnie Social History Tobacco Use Types Packs/Day Years Used Date Smoking Tobacco: Never Assessed Education Answer Date Recorded Are you interested in more education? Not on mat e 02/27/2023 Are you concerned about learning? Not on file 02/27/2023 No 02/27/2023 No 02/27/2023 Digital Access Answer Date Recorded No 03/30/2023 No 03/30/2023 No 03/30/2023 Reliable internet access at home? Not on file 03/30/2023 Device with a working camera? Not on file Sex and Gender Information Value Date Recorded Sex Assigned at Not on file Legal Sex Male 9:41 PM EDT Gender Identity Not on file Sexual Orientation Not on file Last Filed Vital Signs Vital Sign Reading Time Taken Comments Blood Pressure 137/86 06/21/2012 1:56 AM EDT Pulse - - Temperature - - Respiratory Rate - - Oxygen Saturation - - Inhaled Oxygen Concentration - - Weight 143.8 kg (317 lb) 06/21/2012 1:56 AM EDT Height 171.5 cm (5' 7.5 ) 06/21/2012 1:56 AM EDT Body Mass Index 48.92 06/21/2012 1:56 AM EDT Plan of Treatment Health Maintenance Due Date Last Done Comments DEPRESSION SCREENING 1977 SMOKING Hx and SMOKELESS TOBACCO SCREENING 1978 HEPATITIS C SCREENING 1983 HIV ONE-TIME SCREENING (18-6 5 YEARS) 1983 COLOGUARD 2010 COLONOSCOPY 2010 COLORECTAL CANCER SCREENING 2010 FIT TEST 2010 FOBT 2010 SIGMOIDOSCOPY 2010 VIRTUAL COLONOSCOPY 2010 PNEUMOCOCCAL VACCINES (50+ years) (1 of 1 - PCV) 2015 ZOSTER VACCINES (1 of 2) 2015 LIPID PANEL 12/24/2022 12/24/2017 COVID-19 VACCINE (1 - 2023-2 5 season) 2024 Adult Td,Tdap Booster 12/24/2027 12/24/2017 , 01/13/2013 RSV VACCINE (1 - 1-dose 75+ series) 2040 HEPATITIS A VACCINES Aged Out No long er eligible based on patient's age to complete this topic HIB VACCINES Aged Out No longer eligi ble based on patient's age to complete this topic MENINGOCOCCAL VACCINES (ACWY) Aged Out No longer eligible based on patient's age to complete this topic MENINGOCOCCAL VACCINES (B) Aged Out N o longer eligible based on patient's age to complete this topic Medical Devices Not on file Insurance [facility] C[facility] MEDICARE REPLACEMENT KARIE BAEZA [id number] [facility] MEDICARE REPLACEMENT [facility] MEDICARE REPLACEMENT [facility] MEDICARE REPLACEMENT [facility] MEDICARE REPLACEMENT [facility] MEDICARE REPLACEMENT KARIE BAEZA [id number] [facility] MEDICARE REPLACEMENT [facility] MEDICARE REPLACEMENT [facility] ONE CARE MEDICARE REPLACEMENT Care Teams Word Processing Specialist Relationship Specialty Start Date End Date Cornelius, Mary Carmen Santoro MD [address] [place] [phone] PCP - General Family Medicine 09/14/18 Additional Source Comments The information contained in this document represents components of the legal health record. It is not the complete legal health record.[facility]
--- OUTSIDE RECORDS SUMMARY | 2025-06-22 11:35 | XMS_ITS | Clinical Summary ---
Author Organization [facility] Address [address] [place] [address] Care Team Providers Care Filling Mixer Name Role Phone Mary Carmen Mckeon Primary Care Provider +1- [phone] Allergies No known active allergies Medications estradioL [...] 07/26/2024 12:17 PM EDT Plan of Treatment Health Maintenance Due Date Last Done Comments Cervical Cancer Screening 1965 Colonoscopy 1965 HIV Screening 1965 HPV and Pap Smear 1965 Hepatitis C Screening 1965 Pap Smear [address] Lung Cancer Screening (Baseline) 2015 COVID-19 Vaccine (3 - 2023-2 5 season) 2024 05/21/2023, 03/05/2021 Hepatitis B Vaccines (3 of 3 - 19+ 3-dose series) 07/05/2024 05/10/2024, 05/21/2023 Alcohol/Substance Use Screening 11/02/2024 Depression Screening and Follow-Up 11/02/2024 Social Drivers of Health Brianne ual Screening 11/02/2024 RSV Vaccine (60+ years old a nd patients) (1 - Risk 60-74 years 1-dose series) 2025 FOBT / Fit Test 05/10/2025 05/10/2024 Influenza Vaccine (#1) 2025 0, 11/03/2019, 09/09/2018, Additional history exists Cologuard 05/23/2027 05/23/2024 Colon Cancer Screening 05/23/2027 DTaP,Tdap,and Td Vaccines (2 - Td or Tdap) 12/24/2027 12/24/2017 Zoster Vaccines Completed 05/21/2023, 12/02/2022 Pneumococcal Vaccine: 50+ Years Completed 4 Insurance [facility] KARIE BAEZA [id number] Advance Directives Documents on File Type Date Recorded Patient Window Sash Installer Expl anation Health Care Proxy 07/26/2024 12:55 PM * Full Code (Latest Code Status on File) Date Activated Date Inactivated Comments 07/26/2024 11:45 AM 07/26/2024 6:21 PM Care Teams Filling Mixer Relationship Specialty Start Date End Date DillinghamMary Carmen denny [address] [place] [phone] PCP - General Family Medicine 08/24/23
== END ==
LOC: HO.CARD 10:09
PROVIDERS: PCP Family Medicine
DX: Z01.810 Encounter for preprocedural cardiovascular examination (principal); R94.31 Abnormal electrocardiogram [ECG] [EKG]; R06.02 Shortness of breath
CPT/HCPCS: 78452; 93017; A9500; J0280; J2785

== ENCOUNTER → 2025-06-22 10:12 | Outpatient (BNV) | payer OTHER, SELFPAY | PROVIDERS: PCP Family Medicine | DX: I49.3 Ventricular premature depolarization (principal) | CPT/HCPCS: 78452; 93016; 93018 ==

== ENCOUNTER 2025-06-26 13:37 | Outpatient (REF) | payer OTHER, SELFPAY ==
--- NOTE | ~2025-06-26 | US_ITS ---
EXAMINATION: US LOWER EXTREMITY VENOUS (REFLUX EXAM), BILATERAL CLINICAL INFORMATION: Varicose veins of the right lower extremity with inflammation COMPARISON: None. TECHNIQUE: Color flow triplex imaging and compression Doppler was performed to evaluate both the deep and the superficial systems bilaterally. To evaluate the superficial system, the examination was performed in the upright position. Color-flow Doppler ultrasound and compression ultrasound were utilized. In addition, maneuvers were utilized to demonstrate reflux. FINDINGS: 1. DEEP VENOUS ULTRASOUND OF THE RIGHT LOWER EXTREMITY: Common Femoral Vein: Compressible, normal respiratory variation and augmented flow. Femoral Vein: Compressible, normal color flow and augmentation. Popliteal Vein: Compressible, normal augmentation. Deep Reflux: There is no evidence of reflux in the deep system in either the common femoral vein, superficial femoral or the popliteal vein. 2. SUPERFICIAL ULTRASOUND WITH DOPPLER OF RIGHT LOWER EXTREMITY: GREAT SAPHENOUS VEIN: Saphenofemoral Junction: 0.6 cm; Reflux: 0 ms Proximal Thigh: 0.4 cm; Reflux: 0 ms Mid Thigh: 0.4 cm; Reflux: 1300 ms Distal Thigh: 0.4 cm; Reflux: 0 ms At Knee: 0.3 cm; Reflux: 0 ms Below Knee/Proximal Calf: 0.3 cm; Reflux: 0 ms Mid Calf: 0.3 cm; Reflux: 0 ms Ankle/Distal Calf: 0.4 cm; Reflux: 0 ms Medial accessory GREAT SAPHENOUS VEIN: Saphenofemoral Junction: 0.3 cm; Reflux: 0 ms Mid Thigh: 0.2 cm; Reflux: 0 ms SMALL SAPHENOUS VEIN: Drainage: Thigh Extension Saphenopopliteal Junction: 0.2 cm; Reflux: 0 ms Mid calf: 0.2 cm; Reflux: 0 ms Distal: 0.2 cm; Reflux: 0 ms VEIN OF GIACOMINI: Size: NA cm Reflux: NA ms PERFORATORS: Location: Accessory saphenous vein, proximal thigh Size: 0.3 cm Reflux: 0 ms VARICOSITIES > 3mm: Location: None Imaged 3. DEEP VENOUS ULTRASOUND OF THE LEFT LOWER EXTREMITY: Common Femoral Vein: Compressible, normal respiratory variation and augmented flow. Femoral Vein: Compressible, normal color flow and augmentation. Popliteal Vein: Compressible, normal augmentation. Deep Reflux: There is no evidence of reflux in the deep system in either the common femoral vein, superficial femoral or the popliteal vein. 4. SUPERFICIAL ULTRASOUND WITH DOPPLER OF LEFT LOWER EXTREMITY: GREAT SAPHENOUS VEIN: Saphenofemoral Junction: 0.6 cm; Reflux: 0 ms Proximal Thigh: 0.5 cm; Reflux: 0 ms Mid Thigh: 0.4 cm; Reflux: 0 ms Distal Thigh: 0.3 cm; Reflux: 0 ms At Knee: 0.4 cm; Reflux: 0 ms Below Knee/Proximl calf: 0.3 cm; Reflux: 0 ms Mid Calf: 0.2 cm; Reflux: 0 ms Distal Calf/Ankle: 0.3 cm; Reflux: 0 ms Lateral/Medial accessory GREAT SAPHENOUS VEIN: None imaged SMALL SAPHENOUS VEIN: Drainage: thigh extension Saphenopopliteal Junction: 0.2 cm; Reflux: 0 ms Mid calf: 0.1 cm; Reflux: 0 ms Distal calf: 0.2 cm; Reflux: 0 ms VEIN OF GIACOMINI: Size: NA Reflux: NA PERFORATORS: None imaged VARICOSITIES > 3mm: Location: None Imaged US/US venous duplex LE IMPRESSION: Right: Venous incompetence with a greater saphenous vein reflux at the mid thigh Left: No venous reflux is demonstrated. Electronically signed by: Schuyler Wheeler MD 06/26/2025 03:05 PM EDT
--- OUTSIDE RECORDS SUMMARY | 2025-06-26 14:54 | XMS_ITS | Encounter Summary ---
Author Organization [employer] Address [address] [facility] 7t [place] [address] Care Team Providers Care Assistant Credit Manager Name Role Phone Mary Carmen Mckeon MD Primary Care Provider Suly Mendoza PharmD Unavailable Quiana Keene Unavailable Sintia Petty Unavailable Kimmie Zamora MD Unavailable Reason for Visit * Reason Comments Med Refill Encounter Details Date Type Department Care Team (Late st Contact Info) Description 06/09/2025 Refill [facility] [address] [place], [place] [phone] Girma Gutiérrez MD [address] [place], [place] [phone] Candidiasis Social History Tobacco Use Types Packs/Day Years Used Date Smoking Tobacco: Every Day Cigarettes Smokeless Tobacco: Never Depression Answer Date Recorded Patient Health Questionnaire-9 Score 10 11/24/2024 Patient Health Questionnaire-9 Score 10 11/24/2024 Last PHQ-9: Questionnaire Data Not on file 0 11/24/2024 Housing Stability Answer Date Recorded What is your housing situation today? I have camila walker 11/24/[address] you li ve. Do you have problems with any of the following? Pests such as bugs, ants, or mice 11/24/2024 Food Insecurity Answer Date Recorded Within the past 12 months, y ou worried that your food would run out before you got money to buy more: Sometimes True 2024 Within the past 12 months,th e food you bought just didn't last and you didn't have enough money to get more: Sometimes True 11/24/2024 Transportation Answer Date Recorded In the past 12 months, has l ack of transportation kept you from medical appts, meetings, work or from getting things needed for daily living? No 11/24/2024 Utilities Answer Date Recorded In the past 12 months, has t he [employer], gas, oil or water company threatened to shut off services in your home? Yes 11/24/2024 Depression Answer Date Recorded Patient Health Questionnaire-2 Score 2 11/24/2024 Internet Access Answer Date Recorded Internet Access Q1 Yes 11/24/2024 Internet Access Q2 Not on file 11/24/2024 Sex and Gender Information Value Date Recorded [...] Description 08/16/2025 10:15 AM EDT Office Visit [facility] [address] [place] [phone] Mary Carmen Mckeon MD [address] [place] [phone] documented as of this encounter Goals Goal Patient Goal Type Associated Problems Recent Progress Patient-Stated? Author Blood Pressure < 140/90 Blood Pressure 137/79( 025 10:49 AM EST) No Piers-Gambl e, Suly, PharmD Record your blood pressure once per day Blood Pressure No Piers-Gambl e, Suly, PharmD documented as of this encounter Visit Diagnoses Diagnosis Candidiasis documented in this encounter Additional Health Concerns Assessment Noted Time PHQ-9 Depression Total Score: 10 025 1:27 PM EST documented as of this encounter Care Teams Assistant Credit Manager Relationship Specialty Start Date End Date Mary Carmen Mckeon MD [address] [place] [address] [place] [address] PCP - General Family Medicine 10/04/18 Suly Mendoza PharmD [address] [place] [address] Pharmacist Internal Medicine 08/17/24 Quiana Keene [address] - [address] [place] [address] Plastic Surgery 01/06/25 Sintia Petty [address] [place] [address] [address] [place] [phone] Pain Medicine 03/28/25 Kimmie Zamora MD [address] [place] [address] Sleep Medicine 03/29/25 Addison Araujo SYSTEMS ANALYST Cardiology 11/24/24 Jeanie Day PA-C Vascular Surgery 04/21/25 documented as of this encounter
--- OUTSIDE RECORDS SUMMARY | 2025-06-26 14:54 | XMS_ITS | Encounter Summary ---
Author Organization [employer] Address [address] [facility] 7t [place] [address] Care Team Providers Care Hvac Project Engineer Name Role Phone Mary Carmen Mckeon MD Primary Care Provider [phone]- [phone] Suly Mendoza PharmD Unavailable Quiana Keene Unavailable Sintia Petty Unavailable Kimmie Zamora MD Unavailable Encounter Details Date Type Department Care Team (Late st Contact Info) Description 10/20/2022 Orders Only [facility] [address] [place], [place] [phone] Sintia Izaguirre LPN Social History Tobacco Use Types Packs/Day Years [...] Description 08/16/2025 10:15 AM EDT Office Visit [facility] [address] [place], [place] [phone] Mary Carmen Mckeon MD [address] [place], [place] [phone] documented as of this encounter Visit Diagnoses Not on filedocumented in this encounter Care Teams Hvac Project Engineer Relationship Specialty Start Date End Date Mary Carmen Mckeon MD [address] [place] [address] PCP - General Family Medicine 10/04/18 Suly Mendoza PharmD [address] [place] [address] Pharmacist Internal Medicine 08/17/24 Quiana Keene [address] Plastic Surgery 01/06/25 Sintia Petty [address] [place] [address] Drive [address] [place] [phone] Pain Medicine 03/28/25 Kimmie Zamora MD [address] [place] [address] Sleep Medicine 03/29/25 Addison Araujo PRACTICE PERFORMANCE MANAGER Cardiology 11/24/24 Jeanie Day PA-C Vascular Surgery 04/21/25 documented as of this encounter
--- OUTSIDE RECORDS SUMMARY | 2025-06-26 14:54 | XMS_ITS | Clinical Summary ---
Author Organization [employer] Address [address] [place] [address] Care Team Providers Care Information Technology Associate Name Role Phone Mary Carmen Mckeon MD Primary Care Provider Suly Mendoza PharmD Unavailable Quiana Keene Unavailable Sintia Petty Unavailable Kimmie Zamoar MD Unavailable Allergies No known active allergies Medications * This document contains information received from the source organization and may not represent a complete record from that organization. Blood Pressure kitIndications:Hy pertension, unspecified type Dx hypertension, largest cuff 1 kit 024 Active aspirin (Aspirin Low Dose) 81 MG EC tabletIndications :At high risk for coronary artery disease TAKE ONE TABLET BY MOUTH EVERY DAY ^1R2 30 tablet 11 024 Active valsartan (Diovan) 40 MG tabletIndications :Hypertension, unspecified type TAKE 1 TABLET BY MOUTH EVERY DAY 30 tablet 11 024 Active atorvastatin (Lipitor) 20 MG tabletIndications :Dyslipidemia TAKE 1 TABLET BY MOUTH EVERY DAY 30 tablet 11 024 Active levothyroxine (Synthroid, Levoxyl) 200 MCG tabletIndications :Acquired hypothyroidism TAKE ONE TABLET BY MOUTH EVERY DAY 30 tablet 025 Active finasteride (Proscar) 5 MG tabletIndications :Gender dysphoria TAKE ONE TABLET BY MOUTH EVERY DAY 30 tablet 11 04/15/2 025 Active estradiol (Estrace) 1 MG tabletIndications :Gender dysphoria TAKE ONE TABLET BY MOUTH EVERY DAY WITH 2 TABLETS OF 2MG PILLS FOR A TOTAL OF 5MG DAILY 90 tablet 3 025 Active estradiol (Estrace) 2 MG tabletIndications :Gender dysphoria TAKE TWO TABLETS BY MOUTH EVERY DAY WITH 1MG PILL FOR A TOTAL OF 5MG DAILY 180 tablet 3 Active spironolactone (Aldactone) 100 MG tabletIndications :Gender dysphoria TAKE ONE TABLET BY MOUTH TWICE A DAY 180 tablet 025 Active FLUoxetine (PROzac) 40 MG capsuleIndication s:Depressive disorder Take 1 capsule (40 mg) by mouth in the morning. 30 capsule 1 025 Active buPROPion XL (Wellbutrin XL) 300 MG 24 hr tabletIndications :Depressive disorder Take 1 tablet (300 mg) by mouth in the morning. Take with Bupropion XL 100 mg in am. 30 tablet 1 Active buPROPion XL (Wellbutrin XL) 150 MG 24 hr tabletIndications :Depressive disorder Take 1 tablet (150 mg) by mouth in the morning. Do not crush, chew, or split. Take with Bupropion XL 300 mg in am. 30 tablet 1 025 Active hydrOXYzine HCl (Atarax) 50 MG tabletIndications :Anxiety TAKE ONE TABLET BY MOUTH AT BEDTIME IF NEEDED FOR ANXIETY (VIAL) 30 tablet 1 025 Active clotrimazole (Lotrimin) 1 % creamIndications: Candidiasis APPLY TOPICALLY TO AFFECTED AREA(S) TWO TIMES A DAY (BULK) 30 g 2 025 Active ibuprofen 800 MG tabletIndications :Pain TAKE ONE TABLET BY MOUTH THREE TIMES A DAY WITH FOOD NEEDED (VIAL) 30 tablet 1 025 Active hydrOXYzine pamoate (Vistaril) 25 MG capsuleIndication s:Moderate episode of recurrent major depressive disorder (CMS/HCC) TAKE ONE CAPSULE BY MOUTH EVERY DAY NEEDED FOR FOR ANXIETY (VIAL) 30 capsule 025 Active Zepbound 10 MG/0.5ML solution auto-injectorIndi cations:Class 3 severe obesity due to excess calories with serious comorbidity and body mass index (BMI) of 60.0 to 69.9 in adult INJECT 0.5MLS (10MG )UNDER THE SKIN ONCE EVERY SEVEN DAYS (BULK) 2 mL 025 Active nystatin (Mycostatin) 391883 UNIT/GM powderIndications :Candidiasis APPLY TOPICALLY TWO TIMES A DAY (BULK) 60 g 2 025 Active Senna-Tabs 8.6 MG tabletIndications :Constipation, unspecified constipation type TAKE TWO TABLETS BY MOUTH AT BEDTIME NEEDED FOR CONSTIPATION (VIAL) 180 tablet 3 025 Active sennosides (Senna-Tabs) 8.6 MG tabletIndications :Constipation, unspecified constipation type Take 2 tablets (17.2 mg) by mouth if needed at bedtime for constipation. TAKE TWO TABLETS BY MOUTH EVERY DAY NEEDED FOR CONSTIPATION (VIAL) ^VIAL 180 tablet 11 024 2024 Discontinued nystatin (Mycostatin) [id number] UNIT/GM powderIndications :Candidiasis APPLY TOPICALLY TWO TIMES A DAY (BULK) 60 g 2 025 2024 Discontinued(R eorder (will not trigger notification to Pharmacy)) hydrOXYzine pamoate (Vistaril) 25 MG capsuleIndication s:Moderate episode of recurrent major depressive disorder (CMS/HCC) TAKE ONE CAPSULE BY MOUTH IF NEEDED EACH DAY FOR ANXIETY (VIAL) 30 capsule 025 2024 Discontinued Tirzepatide-Weigh t Management (Zepbound) 10 MG/0.5ML solution auto-injectorIndi cations:Class 3 severe obesity due to excess calories with serious comorbidity and body mass index (BMI) of 60.0 to 69.9 in adult Inject 0.5 mL (10 mg) under the skin every 7 (seven) days. 2 mL 025 2024 Discontinued hydrOXYzine pamoate (Vistaril) 25 MG capsuleIndication s:Moderate episode of recurrent major depressive disorder (CMS/HCC) TAKE ONE CAPSULE BY MOUTH EVERY DAY NEEDED FOR ANXIETY (VIAL) 30 capsule 025 2024 Discontinued Zepbound 10 MG/0.5ML solution auto-injectorIndi cations:Class 3 severe obesity due to excess calories with serious comorbidity and body mass index (BMI) of 60.0 to 69.9 in adult INJECT 10MG UNDER THE SKIN ONCE EVERY SEVEN DAYS (BULK) 2 mL 025 2024 Discontinued Active Problems Patient Care Coordination No te Formatting of this note migh t be different from the original. 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 Kimmie Zamora MD [facility]. Home sleep study 04/06/25 diagnosed severe MIKE overnight titration study recommended. Sleep in non supine position. Avoid sedating medications. Follow uo with sleep medicine. -CPAP with titration dated 06/07/25 recommended BPAP 20/15 cm H2O with heated humidifier Chronic pain of both knees 03/28/2025 Overview (03/28/2025): -seen by pain management 03/24/25 Patient is interested in aqua therapy to reduce joint pressures while escalating diagnostic evaluations to include potential an open lumbar MRI, should further imaging be deemed vital. Lumbar spine imaging to assess degree of degenerative changes, any subluxation, listhesis, compression fractures or pars defects. Bilateral knee xray to assess degree of arthritis. History of tobacco use 11/24/2024 Overview (03/10/2025): Has had some episodes of wheezing on top of snoring and additionally feeling tired/fatigued in the day and taking naps. -referred to talent assistant 11/24/24, have not heard 03/10/25 -referred to sleep medicine. 11/24/24, Has appt. 03/22/25. Assessment & Plan (03/10/2025 11:12 AM EDT): Has had some episodes of wheezing on top of snoring and additionally feeling tired/fatigued in the day and taking naps. -referred to talent assistant 11/24/24, have not heard 03/10/25 -referred to sleep medicine. 11/24/24, Has appt. 03/22/25. Assessment & Plan (11/24/2024 11:06 AM EST): Has had some episodes of wheezing on top of snoring and additionally feeling tired/fatigued in the day and taking naps. -referred to talent assistant 11/24/24 -referred to sleep medicine. 11/24/24 SOB (shortness of breath) 11/24/2024 Overview (04/11/2025): Has had some episodes of wheezing on top of snoring and additionally feeling tired/fatigued in the day and taking naps. -referred to talent assistant 11/24/24 -Seen by Kimmie Zamora MD at [facility] 03/22/25, home sleep study ordered and CPAP likely to be started Followed by [facility]. Home sleep study 04/06/25 diagnosed severe MIKE overnight titration study recommended. Assessment & Plan (11/24/2024 11:06 AM EST): Has had some episodes of wheezing on top of snoring and additionally feeling tired/fatigued in the day and taking naps. -referred to talent assistant 11/24/24 -referred to sleep medicine. 11/24/24 Daytime somnolence 11/24/2024 Overview (06/14/2025): Has had some episodes of wheezing on top of snoring and additionally feeling tired/fatigued in the day and taking naps. -referred to talent assistant 11/24/24 -referred to sleep medicine. 11/24/24 -has appt scheduled. Followed by [facility]. Home sleep study 04/06/25 diagnosed severe MIKE overnight titration study recommended. Assessment & Plan (01/06/2025 5:36 PM EST): Has had some episodes of wheezing on top of snoring and additionally feeling tired/fatigued in the day and taking naps. -referred to talent assistant 11/24/24 -referred to sleep medicine. 11/24/24 -has appt scheduled. Assessment & Plan (11/24/2024 11:06 AM EST): Has had some episodes of wheezing on top of snoring and additionally feeling tired/fatigued in the day and taking naps. -referred to talent assistant 11/24/24 -referred to sleep medicine. 11/24/24 Moderate episode of recurrent major depressive d isorder 11/24/2024 Overview (03/10/2025): Denies suicidial or homacidial ideation. Continue current medications. Clark snot currently see a therapist interested in seeing one. -referred to behavioral health 11/24/24 -Has appt 03/16/25 Assessment & Plan (03/10/2025 11:14 AM EDT): Denies suicidial or homacidial ideation. Continue current medications. Clark snot currently see a therapist interested in seeing one. -referred to behavioral health 11/24/24 -Has appt 03/16/25 Assessment & Plan (11/24/2024 11:32 AM EST): Denies suicidial or homacidial ideation. Continue current medications. Clark snot currently see a therapist interested in seeing one. -referred to behavioral health 11/24/24 Cardiac risk counseling 08/10/2024 Overview (10/31/2024): Calculated 08/10/24 intermediate risk The 10-year ASCVD risk score (Manish DE OLIVEIRA, et al., 2019) is: 8.1% Values used to calculate the score: Age: 59 years Sex: Female Is Non- : No Diabetic: No Tobacco smoker: Yes Systolic Blood Pressure: 150 mmHg Is BP treated: No HDL Cholesterol: 49 mg/dL Total Cholesterol: 166 mg/dL Lab Results Component Value Date LDLCHOL 107 (H) 09/26/2020 LDLCHOL 107 (H) 09/26/2020 -Atherosclerotic Cardiovascular Disease (ASCVD) Risk Calculator is intended for a person age 40-79 without ASCVD and with LDL-cholesterol < 190/mg/dl to assesses the chances of developing heart disease over the next 10 years. -Tobacco cessation: not applicable -Statin therapy: atorvastatin started 08/2024 -Importance of moderate physical activity and nutrition interventions discussed. Class 3 severe obesity due t o excess calories with serious comorbidity and body mass index (BMI) of 60.0 to 69.9 in adult 05/10/2024 Overview (03/10/2025): Baseline weight: 396 lbs -given BMI >30kg/m2 or >27kg/m2 with one or more weight related comorbidities pt is a candidate for glucagon-like peptide-1s (GLP-1) to assist with weight loss -pt has attempted > 3 months of dietary changes and increased physical activity without significant reduction in weight -patient counseled this medication is to be used in combination with reduced calorie diet and increased physical activity -Contraindication to phentermine: anxiety and palpitations. -Reviewed w/ pt side effects of GLP1 and how to mitigate incl eating small portions and do not eat through sensation of fullness. No personal or family h/o papillary thyroid cancer. No personal h/o pancreatitis. Does/does not have retinopathy. Refrigerate but do not freeze. -For Zepbound (tirzepatide), May increased by 2.5mg q 4 weeks with max 15mg/wk -2mg started Nov 2024 -5mg started 01/06/25 -Increase to 7.5mg on 02/06/25, doing well 03/10/25, unable to check weight at this time, will schedule for follow-up in-person visit in 3 months. Assessment & Plan (03/10/2025 11:20 AM EDT): Baseline weight: 396 lbs -given BMI >30kg/m2 or >27kg/m2 with one or more weight related comorbidities pt is a candidate for glucagon-like peptide-1s (GLP-1) to assist with weight loss -pt has attempted > 3 months of dietary changes and increased physical activity without significant reduction in weight -patient counseled this medication is to be used in combination with reduced calorie diet and increased physical activity -Contraindication to phentermine: anxiety and palpitations. -Reviewed w/ pt side effects of GLP1 and how to mitigate incl eating small portions and do not eat through sensation of fullness. No personal or family h/o papillary thyroid cancer. No personal h/o pancreatitis. Does/does not have retinopathy. Refrigerate but do not freeze. -For Zepbound (tirzepatide), May increased by 2.5mg q 4 weeks with max 15mg/wk -2mg started Nov 2024 -5mg started 01/06/25 -Increase to 7.5mg on 02/06/25, doing well 03/10/25, unable to check weight at this time, will schedule for follow-up in-person visit in 3 months. Assessment & Plan (01/06/2025 5:36 PM EST): Baseline weight: 396 lbs -given BMI >30kg/m2 or >27kg/m2 with one or more weight related comorbidities pt is a candidate for glucagon-like peptide-1s (GLP-1) to assist with weight loss -pt has attempted > 3 months of dietary changes and increased physical activity without significant reduction in weight -patient counseled this medication is to be used in combination with reduced calorie diet and increased physical activity -Contraindication to phentermine: anxiety and palpitations. -Reviewed w/ pt side effects of GLP1 and how to mitigate incl eating small portions and do not eat through sensation of fullness. No personal or family h/o papillary thyroid cancer. No personal h/o pancreatitis. Does/does not have retinopathy. Refrigerate but do not freeze. -For Zepbound (tirzepatide) -2mg started Nov 2024 -5mg started 01/06/25 -Increase to 7.5mg on 02/06/25 May increased by 2.5mg q 4 weeks with max 15mg/wk Assessment & Plan (11/24/2024 11:35 AM EST): Baseline weight: 396 lbs -given BMI >30kg/m2 or >27kg/m2 with one or more weight related comorbidities pt is a candidate for glucagon-like peptide-1s (GLP-1) to assist with weight loss -pt has attempted > 3 months of dietary changes and increased physical activity without significant reduction in weight -patient counseled this medication is to be used in combination with reduced calorie diet and increased physical activity -Contraindication to phentermine: anxiety and palpitations. -Reviewed w/ pt side effects of GLP1 and how to mitigate incl eating small portions and do not eat through sensation of fullness. No personal or family h/o papillary thyroid cancer. No personal h/o pancreatitis. Does/does not have retinopathy. Refrigerate but do not freeze. -For Zepbound (tirzepatide) Start 2.5mg subcutaneously q week x 1 month, then 5mg subcutaneously q week. May increased by 2.5mg q 4 weeks with max 15mg/wk -follow-up in 6 weeks for f/u. Candidiasis 05/10/2024 Overview (05/10/2024): -prescribed Nystatin powder 05/10/24 Assessment & Plan (05/10/2024 11:18 AM EDT): -prescribed Nystatin powder 05/10/24 Other specified health status 05/18/2023 Overview (06/14/2025): -next comprehensive annual evaluation due after 05/10/2025 -eye care: PT given list to call 05/21/2023 -dental encouraged to make an appointment at [facility] 05/21/23 -health care proxy given and filed 05/10/24 Assessment & Plan (05/10/2024 11:07 AM EDT): -next physical exam due after 05/10/2025. -eye care: PT given list to call 05/21/2023 -dental encouraged to make an appointment at [facility] 05/21/23. -health care proxy given and filed 05/10/24 Assessment & Plan (05/21/2023 10:12 AM EDT): -next physical exam due after 05/21/2024. -eye care: Pt given list to call 05/21/23. -dental encouraged to make an appointment at [facility] 05/21/23. Difficulty walking 01/09/2023 Overview (01/09/2023): She uses a motorized scooter due to chronic pain and class 3 obesity. Assessment & Plan (05/20/2023 3:12 PM EDT): She uses a motorized scooter due to chronic pain and class 3 obesity. Assessment & Plan (01/09/2023 9:11 AM EST): She uses a motorized scooter due to chronic pain and class 3 obesity. Does mobilize using assistive scooter 01/09/2023 Walker as ambulation aid 01/09/2023 Lower extremity edema 01/09/2023 Overview (04/21/2025): Require leg elevation as much as possible for venous stasis and significant LE edema. Recliner ordered. -encouraged compression stockings as well as dietary changes. -vascular referral placed by pain management, seen by Steve Day PA-C 04/20/25 We have discussed conservative measures including compression, elevation, and exercise. They are unable to put compression socks on due to the pain and swelling. I have taken the liberty of ordering venous insufficiency testing with the patient. Assessment & Plan (11/24/2024 11:14 AM EST): Require leg elevation as much as possible for venous stasis and significant LE edema. Recliner ordered. -encouraged compression stockings as well as dietary changes. Assessment & Plan (05/11/2024 1:57 PM EDT): Require leg elevation as much as possible for venous stasis and significant LE edema. Recliner ordered. Assessment & Plan (01/09/2023 11:08 AM EST): Chronic. No symptoms of CHF Will address at next impatient visit. Pt requesting compression stockings. Colon cancer screening 01/09/2023 Overview (05/10/2024): Pt agrees to colon cancer evaluation. -Referral place 05/21/2023 -RN outreach to pt week of 12/09/23 to check status of apt and give pt number to call -pt agreed to first do Cologuard, ordered to be sent to pt's home 05/10/24 Assessment & Plan (05/10/2024 11:10 AM EDT): Pt agrees to colon cancer evaluation. -Referral place 05/21/2023 -RN outreach to pt week of 12/09/23 to check status of apt and give pt number to call -pt agreed to first do Cologuard, ordered to be sent to pt's home 05/10/24 Assessment & Plan (05/21/2023 10:13 AM EDT): Pt agrees to colon cancer evaluation. -Referral place 05/21/2023. Assessment & Plan (01/09/2023 11:09 AM EST): Cologaurd unable to run specimen, will resend. Acquired hypothyroidism 04/18/2022 Overview (01/06/2025): Lab Results Component Value Date TSH 4.51 (H) 11/24/2024 TSH 77.03 (H) 05/10/2024 TSH 27.34 (H) 05/21/2023 -prescribed levothyroxine (Synthroid, Levoxyl) 200 MCG. Assessment & Plan (03/10/2025 11:10 AM EDT): Lab Results Component Value Date TSH 4.51 (H) 11/24/2024 TSH 77.03 (H) 05/10/2024 TSH 27.34 (H) 05/21/2023 -prescribed levothyroxine (Synthroid, Levoxyl) 200 MCG. Assessment & Plan (01/06/2025 5:37 PM EST): Lab Results Component Value Date TSH 4.51 (H) 11/24/2024 TSH 77.03 (H) 05/10/2024 TSH 27.34 (H) 05/21/2023 -prescribed levothyroxine (Synthroid, Levoxyl) 200 MCG. Assessment & Plan (11/24/2024 11:16 AM EST): Lab Results Component Value Date TSH 77.03 (H) 05/10/2024 TSH 27.34 (H) 05/21/2023 -prescribed levothyroxine (Synthroid, Levoxyl) 200 MCG. -ordered repeat labs 11/24/24 Assessment & Plan (05/10/2024 11:02 AM EDT): Lab Results Component Value Date TSH 27.34 (H) 05/21/2023 Assessment & Plan (05/20/2023 3:12 PM EDT): TSH not at goal. TSH was 66.86 on 09/26. - She is prescribed levothyroxine 200mg daily and was not compliant. Will recheck now that she is taking daily. Assessment & Plan (01/09/2023 9:09 AM EST): TSH not at goal. TSH was 66.86 on 09/26. - She is prescribed levothyroxine 200mg daily and was not compliant. Will recheck now that she is taking daily. Dyslipidemia 04/18/2022 Overview (01/06/2025): Lab Results Component Value Date CHOL 118 11/24/2024 CHOL 166 05/10/2024 CHOL 164 05/21/2023 TRIG 75 11/24/2024 TRIG 87 05/10/2024 TRIG 113 05/21/2023 HDL 42 11/24/2024 HDL 49 05/10/2024 HDL 46 05/21/2023 LDLCHOLCAL 61 11/24/2024 LDLCHOLCAL 100 (H) 05/10/2024 LDLCHOLCAL 96 05/21/2023 -continue lifestyle modification -CDTM started atorvastatin 20mg once daily 08/17/24 Assessment & Plan (01/06/2025 5:37 PM EST): Lab Results Component Value Date CHOL 118 11/24/2024 CHOL 166 05/10/2024 CHOL 164 05/21/2023 TRIG 75 11/24/2024 TRIG 87 05/10/2024 TRIG 113 05/21/2023 HDL 42 11/24/2024 HDL 49 05/10/2024 HDL 46 05/21/2023 LDLCHOLCAL 61 11/24/2024 LDLCHOLCAL 100 (H) 05/10/2024 LDLCHOLCAL 96 05/21/2023 -continue lifestyle modification -CDTM started atorvastatin 20mg once daily 08/17/24 Assessment & Plan (11/24/2024 11:32 AM EST): Lab Results Component Value Date CHOL 166 05/10/2024 CHOL 164 05/21/2023 TRIG 87 05/10/2024 TRIG 113 05/21/2023 HDL 49 05/10/2024 HDL 46 05/21/2023 LDLCHOLCAL 100 (H) 05/10/2024 LDLCHOLCAL 96 05/21/2023 -continue lifestyle modification -CDTM started atorvastatin 20mg once daily 08/17/24 -ordered repeat FLP and HFP 11/24/24 Assessment & Plan (05/10/2024 11:03 AM EDT): Lab Results Component Value Date CHOLESTEROL 180 09/26/2020 CHOLESTEROL 180 09/26/2020 LDLCHOL 107 (H) 09/26/2020 LDLCHOL 107 (H) 09/26/2020 TRIG 113 05/21/2023 HDLCHOL 44 09/26/2020 HDLCHOL 44 09/26/2020 CHOLHDLRAT 4.1 09/26/2020 CHOLHDLRAT 4.1 09/26/2020 -continue lifestyle modifications Assessment & Plan (05/21/2023 9:36 AM EDT): No results found for: CHOLESTEROL, LDLCHOL, TRIG, HDLCHOL, CHOLHDLRAT -continue lifestyle modifications Gender dysphoria 04/18/2022 Overview (03/10/2025): Continue estradiol 5mg daily Estradial level from 09/2020 was 48 , she was not compliant with her meds. Testosterone was low at 38 Continue spironolactone 100mg bid Continue Proscar 5mg daily Quit tobacco in 2018 Continue ASA 81mg daily She has legally changed her name and submitted paperwork to Medical Records. Interested in a breast augmentation and is attempting to lose weight to be able to qualify for surgery. Her difficulty with weight loss is causing great distress. I gave her the number for the [employer] today and she will call today 03/06/2021 Pt got an appt with Surgeon for breast augmentation, but needs clean urine drug test from nicotine. -ordered urine She has rescheduled appt with Dr. Figueredo for surgery evaluation and has continued with smoking Pt as stopped smoking x2 years, waiting to see [employer] administrator to get approved to reschedule breast surgery. -pt is waiting for cardiac clearance prior to breast augmentation surgery. -reports she saw a [employer] administrator, Dr Araujo and had an echo but was never called with the results. Will request note 03/10/25 Assessment & Plan (03/10/2025 11:15 AM EDT): Continue estradiol 5mg daily Estradial level from 09/2020 was 48 , she was not compliant with her meds. Testosterone was low at 38 Continue spironolactone 100mg bid Continue Proscar 5mg daily Quit tobacco in 2017 Continue ASA 81mg daily She has legally changed her name and submitted paperwork to Medical Records. Interested in a breast augmentation and is attempting to lose weight to be able to qualify for surgery. Her difficulty with weight loss is causing great distress. I gave her the number for the [employer] today and she will call today 03/06/2021 Pt got an appt with Surgeon for breast augmentation, but needs clean urine drug test from nicotine. -ordered urine She has rescheduled appt with Dr. Figueredo for surgery evaluation and has continued with smoking Pt as stopped smoking x2 years, waiting to see [employer] administrator to get approved to reschedule breast surgery. -pt is waiting for cardiac clearance prior to breast augmentation surgery. -reports she saw a [employer] administrator, Dr Araujo and had an echo but was never called with the results. Will request note 03/10/25 Assessment & Plan (01/06/2025 5:37 PM EST): Continue estradiol 5mg daily Estradial level from 09/2020 was 48 , she was not compliant with her meds. Testosterone was low at 38 Continue spironolactone 100mg bid Continue Proscar 5mg daily Quit tobacco in 2017 Continue ASA 81mg daily She has legally changed her name and submitted paperwork to Medical Records. Interested in a breast augmentation and is attempting to lose weight to be able to qualify for surgery. Her difficulty with weight loss is causing great distress. I gave her the number for the [employer] today and she will call today 03/06/2021 Pt got an appt with Surgeon for breast augmentation, but needs clean urine drug test from nicotine. -ordered urine She has rescheduled appt with Dr. Figueredo for surgery evaluation and has continued with smoking Pt as stopped smoking x2 years, waiting to see [employer] administrator to get approved to reschedule breast surgery. -pt is waiting for cardiac clearance prior to breast augmentation surgery. Assessment & Plan (11/24/2024 11:15 AM EST): Continue estradiol 5mg daily Estradial level from 09/2020 was 48 , she was not compliant with her meds. Testosterone was low at 38 Continue spironolactone 100mg bid Continue Proscar 5mg daily Quit tobacco in 2017 Continue ASA 81mg daily She has legally changed her name and submitted paperwork to Medical Records. Interested in a breast augmentation and is attempting to lose weight to be able to qualify for surgery. Her difficulty with weight loss is causing great distress. I gave her the number for the [employer] today and she will call today 03/06/2021 Pt got an appt with Surgeon for breast augmentation, but needs clean urine drug test from nicotine. -ordered urine She has rescheduled appt with Dr. Figueredo for surgery evaluation and has continued with smoking Pt as stopped smoking x2 years, waiting to see [employer] administrator to get approved to reschedule breast surgery. Assessment & Plan (05/10/2024 11:06 AM EDT): Continue estradiol 5mg daily Estradial level from 09/2020 was 48 , she was not compliant with her meds. Testosterone was low at 38 Continue spironolactone 100mg bid Continue Proscar 5mg daily Quit tobacco in 2018 Continue ASA 81mg daily She has legally changed her name and submitted paperwork to Medical Records. Interested in a breast augmentation and is attempting to lose weight to be able to qualify for surgery. Her difficulty with weight loss is causing great distress. I gave her the number for the [employer] today and she will call today 03/06/2021 Pt got an appt with Surgeon for breast augmentation, but needs clean urine drug test from nicotine. -ordered urine She has rescheduled appt with Dr. Figueredo for surgery evaluation and has continued with smoking cessation. Assessment & Plan (05/20/2023 3:12 PM EDT): Continue estradiol 5mg daily Estradial level from 09/2020 was 48 , she was not compliant with her meds. Testosterone was low at 38 Continue spironolactone 100mg bid Continue Proscar 5mg daily Quit tobacco in 2018 Continue ASA 81mg daily She has legally changed her name and submitted paperwork to Medical Records. Interested in a breast augmentation and is attempting to lose weight to be able to qualify for surgery. Her difficulty with weight loss is causing great distress. I gave her the number for the [employer] today and she will call today 03/06/2021 Assessment & Plan (01/09/2023 9:10 AM EST): Continue estradiol 5mg daily Estradial level from 09/2020 was 48 , she was not compliant with her meds. Testosterone was low at 38 Continue spironolactone 100mg bid Continue Proscar 5mg daily Quit tobacco in 2018 Continue ASA 81mg daily She has legally changed her name and submitted paperwork to Medical Records. Interested in a breast augmentation and is attempting to lose weight to be able to qualify for surgery. Her difficulty with weight loss is causing great distress. I gave her the number for the [employer] today and she will call today 03/06/2021 Recurrent major depressive disorder 03/16/2014 Overview (05/09/2024): Denies suicidial or homacidial ideation. Continue current medications. Assessment & Plan (11/24/2024 11:21 AM EST): Denies suicidial or homacidial ideation. Continue current medications. Assessment & Plan (05/10/2024 11:03 AM EDT): Denies suicidial or homacidial ideation. Continue current medications. Assessment & Plan (05/20/2023 3:12 PM EDT): Continue fluoxetine 40mg daily and Bupropion XL 100mg daily. Assessment & Plan (01/09/2023 9:10 AM EST): Continue fluoxetine 40mg daily and Bupropion XL 100mg daily. High blood pressure 03/16/2014 Overview (11/24/2024): -Blood pressure is at goal -Continue lifestyle modifications -Continue current medications -[facility] started valsartan 40mg once daily 08/17/24 for borderline elevated BP and microalbuminuria Assessment & Plan (11/24/2024 11:08 AM EST): -Blood pressure is at goal -Continue lifestyle modifications -Continue current medications -Currently enrolled in [facility] started valsartan 40mg once daily 08/17/24 for borderline elevated BP and microalbuminuria Assessment & Plan (05/10/2024 11:23 AM EDT): -Blood pressure is not at goal, slightly elevated and repeat was lower but still above goal -Continue lifestyle modifications -Continue current medications -Referred to [facility] 05/10/24 -Will arrange for home BP monitor 05/10/24 and encouraged pt to monitor BP over the next couple weeks. Assessment & Plan (05/21/2023 9:37 AM EDT): -Blood pressure is at goal -Continue lifestyle modifications -Continue current medications Resolved Problems Problem Noted Date Diagnosed Date Resolved Date Dietary counseling 11/24/2024 Assessment & Plan (03/10/2025 11:02 AM EDT): Dietary Recommendations: Fruits, vegetables, whole grains, protein foods, and fat-free or low-fat dairy products are healthy choices. Eat different types of protein foods in your diet. This can include seafood, lean meats, poultry, beans, peas, lentils, nuts, seeds, soy products, and eggs. Limit foods and beverages higher in added sugars, saturated fat, and sodium. Assessment & Plan (11/24/2024 11:10 AM EST): Dietary Recommendations: Fruits, vegetables, whole grains, protein foods, and fat-free or low-fat dairy products are healthy choices. Eat different types of protein foods in your diet. This can include seafood, lean meats, poultry, beans, peas, lentils, nuts, seeds, soy products, and eggs. Limit foods and beverages higher in added sugars, saturated fat, and sodium. Exercise counseling 11/24/2024 03/29/20 Assessment & Plan (03/10/2025 11:02 AM EDT): Exercise Recommendations: At least 150 minutes of moderate-intensity physical activity per week, or an equivalent combination of moderate- and vigorous-intensity activity Assessment & Plan (11/24/2024 11:10 AM EST): Exercise Recommendations: At least 150 minutes of moderate-intensity physical activity per week, or an equivalent combination of moderate- and vigorous-intensity activity Abnormal TSH 11/24/2024 11/24/2024 Snoring 11/24/2024 04/11/2025 Overview (11/24/2024): Has had some episodes of wheezing on top of snoring and additionally feeling tired/fatigued in the day and taking naps. -referred to talent assistant 11/24/24 -referred to sleep medicine. 11/24/24 Assessment & Plan (11/24/2024 11:06 AM EST): Has had some episodes of wheezing on top of snoring and additionally feeling tired/fatigued in the day and taking naps. -referred to talent assistant 11/24/24 -referred to sleep medicine. 11/24/24 Encounter for immunization 05/10/2024 1 Embedded earring, initial encounter 05/10/2024 10/31/2024 Overview (05/10/2024): -embedded earring in right ear -referred to general surgery for evaluation Assessment & Plan (05/10/2024 11:09 AM EDT): -embedded earring in right ear -referred to general surgery for evaluation Physical exam 05/09/2024 10/31/2024 Somnolence 05/21/2023 05/10/2024 Overview (05/21/2023): High risk for MIKE. -Sleep medicine referral placed 05/21/2023. Assessment & Plan (05/21/2023 10:12 AM EDT): High risk for MIKE. -Sleep medicine referral placed 05/21/2023. Morbid obesity 04/18/2022 04/11/2025 Overview (05/11/2024): She has lost significant weight. She continues to have comorbidities and needs to sleep sitting up for adequate ventilation. A recliner chare is ordered. Assessment & Plan (05/11/2024 1:56 PM EDT): She has lost significant weight. She continues to have comorbidities and needs to sleep sitting up for adequate ventilation. A recliner chare is ordered. Assessment & Plan (05/20/2023 3:12 PM EDT): Doing well. Made lifestyle changes and has stopped using sugar but reprots she has not lost much weight. She has also stopped eating chips and candy. Assessment & Plan (01/09/2023 9:10 AM EST): Doing well. Made lifestyle changes and has stopped using sugar but reprots she has not lost much weight. She has also stopped eating chips and candy. Encounters * This document contains information received from the source organization and may not represent a complete record from that organization. Date Type Department Care Team Description 06/22/2025 Refill [facility] [address] [place] [address] Mary Carmen Mckeon MD Constipation, unspecified constipation type 06/13/2025 Telephone [facility] [address] [place] [address] Mary Carmen Mckeon MD CHART PREP 06/09/2025 Refill [facility] [address] [place] [address] Girma Gutiérrez MD Candidiasis 06/05/2025 Refill [facility] [address] [place] [address] Girma Gutiérrez MD Candidiasis 2025 Refill [facility] [address] [place] [address] Mary Carmen Mckeon MD Class 3 severe obesity due to excess calories with serious comorbidity and body mass index (BMI) of 60.0 to 69.9 in adult; Moderate episode of recurrent major depressive disorder (CMS/HCC); Candidiasis; Pain 04/29/2025 Refill [facility] [address], [place] [phone] Mary Carmen Mckeon MD Class 3 severe obesity due to excess calories with serious comorbidity and body mass index (BMI) of 60.0 to 69.9 in adult 04/14/2025 Refill [facility] [address] [place] [address] Mary Carmen Mckeon MD Gender dysphoria 04/10/2025 Refill [facility] [address], [place] [phone] Mary Carmen Mckeon MD Class 3 severe obesity due to excess calories with serious comorbidity and body mass index (BMI) of 60.0 to 69.9 in adult 04/05/2025 Telephone [facility] [address] [place] [address] Mary Carmen Mckeon MD Med Refill from Last 3 Months Immunizations Immunization Administration Dates Next Due Hep B, adult 11/24/2024,05/10/2024,05/21/2023 Influenza injectable quadriv alent IIV4 with preservative 09/09/2018 Influenza injectable quadriv alent preservative free 09/26/2020,11/03/2019 Influenza, High Dose Seasona l, Preservative Free 12/24/2017 Influenza, seasonal, injecta ble, preservative free 08/17/2024 Pfizer Covid-19 Vaccine 12+ 11/24/2024, Pfizer Covid-19 Vaccine 12+ Bivalent 05/21/2023 Pneumococcal Conjugate PCV 20 05/10/2024 Tdap 12/24/2017 Zoster, Recombinant 05/21/2023,12/02/2022 Social History Tobacco Use Types Packs/Day Years Used Date Smoking Tobacco: Every Day Cigarettes Smokeless Tobacco: Never Tobacco Cessation:Ready to Q uit: Not Asked; Counseling Given: Not Answered Depression Answer Date Recorded Patient Health Questionnaire-9 [...] the past 12 months, has t he electric, gas, oil or water company threatened to [...] not to disclose 2021 10:24 AM EDT Last Filed Vital Signs Vital Sign Reading Time Taken Comments Blood Pressure 137/79 11/24/2024 10:49 AM EST Pulse 71 08/17/2024 11:06 AM EDT Temperature 37.2 C (98.9 F) 11/24/2024 10:49 AM EST Respiratory Rate 20 11/24/2024 10:49 AM EST Oxygen Saturation 94% 11/24/2024 10:49 AM EST Inhaled Oxygen Concentration - - Weight 180 kg (396 lb 3.2 oz) 11/24/2024 10:49 A M EST Height 170.2 cm (5' 7 ) 11/24/2024 10:49 AM EST Body Mass Index 62.05 11/24/2024 10:49 AM EST Plan of Treatment Upcoming Encounters Date Type Department Care Team (Late st Contact Info) Description 08/16/2025 10:15 AM EDT Office Visit [facility] [address] [place] [address] Mary Carmen Mckeon MD [address] [place] [address] Health Maintenance Due Date Last Done Comments CT Colonography 1965 Colonoscopy 1965 FIT 1965 FOBT 1965 Sigmoidoscopy 1965 Disability Screening 1965 RSV Patients and Patients Aged 60 years or older (1 - Risk 60-74 years 1-dose series) 2025 Depression Monitoring 05/24/2025 11/24/2024, 025 Influenza Vaccine (#1) 2025 , 09/26/2020, 11/03/2019, Additional history exists Alcohol/Substance Use Screening 11/24/2025 11/24/2024 Diabetes: Hemoglobin A1C 11/24/2025 025, 05/10/2024, 05/21/2023 SDOH Screening 11/24/2025 11/24/2024 Tobacco Screening 03/16/2026 03/16/2025 Colorectal Cancer Screening 05/23/2027 FIT DNA/Cologuard 05/23/2027 05/23/2024 DTaP/Tdap/Td Vaccines (2 - Td or Tdap) 12/24/2027 12/24/2017 Lipid Panel 11/24/2029 11/24/2024, 07/0 07/2024, 05/21/2023, Additional history exists Hepatitis C Screening Completed 09/09/2018 HIV Screening Completed 05/21/2023, 09/09/2018 Zoster Vaccines Completed 05/21/2023, 12/02/2022 Pneumococcal Vaccine: 50+ Years Completed 05/10/2024 COVID-19 Vaccine Completed 11/24/2024, , 03/05/2021 Hepatitis B Vaccines Completed 11/24/2024, 05/10/2024, 05/21/2023 HIB Vaccines Aged Out No longer eligi ble based on patient's age to complete this topic HPV Vaccines Aged Out No longer eligi ble based on patient's age to complete this topic Hepatitis A Vaccines Aged Out No long er eligible based on patient's age to complete this topic IPV Vaccines Aged Out No longer eligi ble based on patient's age to complete this topic Meningococcal B Vaccine Aged Out No l onger eligible based on patient's age to complete this topic Meningococcal Vaccine Aged Out No bautista rocio eligible based on patient's age to complete this topic RSV under 20 months Aged Out No longe r eligible based on patient's age to complete this topic Rotavirus Vaccines Aged Out No longer eligible based on patient's age to complete this topic Goals Goal Patient Goal Type Associated Problems Recent Progress Patient-Stated? Author Blood Pressure < 140/90 Blood Pressure 137/79( 025 10:49 AM EST) No Suly Yin, PharmSophy Record your blood pressure once per day Blood Pressure No Suly Yin PharmD Procedures Procedure Name Priority Date/Time Associated Diagnosis Comments HEMOGLOBIN A1C Routine 11/24/2024 12:10 PM EST Class 3 severe obesity due to excess calories with serious comorbidity and body mass index (BMI) of 60.0 to 69.9 in adult (CMS/HCC) LIPID PANEL, STANDARD Routine 11/24/2024 12:10 PM EST Class 3 severe obesity due to excess calories with serious comorbidity and body mass index (BMI) of 60.0 to 69.9 in adult (CMS/HCC) LAB COLOGUARD COLON CANCER SCREEN Routine 05/23/2024 12:00 PM EDT Colon cancer screening HIV ANTIBODY/ANTIGEN ([place] [facility]) Routine 05/21/2023 10:58 AM EDT HM HEPATITIS C ANTIBODY Routine 09/09/2018 from Last 3 Months or Most Recently Relevant to Health Maintenance Results * Hemoglobin A1c (11/24/2024 12:10 PM EST) Hemoglobin A1c 5.7 <6.0 % [facility] Comment:Hemoglobin A1C Refer ence Range Adults: 4.8 - 6.0 % Non diabetic: < 6.0 % Goal: < 7.0 %Additional Action Suggested: > 8.0 %Note: Hemoglobin A1c results are invalid for patients with abnormal amounts of HbF. Blood transfusions may impact the HbA1c concentration in the patient sample. Estimated Average Glucose 117 mg/dL [facility] Comment:eAG = Estimated ave rage glucose which is %A1C expressed asaverage glucose, using the formula of the Q5W-FlcuzjtMhodnsa Glucose study (ADAG), Diabetes Care, Vol.31,#8,Jun. 2007 Blood Venous blood specimen / Unknown 11/24/2024 12:10 PM EST 11/24/2024 1:22 PM EST us Mary Carmen Mckeon MD LAB BLOOD ORDERABLES Final Result [facility] [address] [place] [phone] * Lipid Panel, Standard (11/24/2024 12:10 PM EST) Triglycerides 75 <150 mg/dL [facility] Comment:Desirable Triglyceri de: less than 150 mg/dLBorderline High Triglyceride 150-199 mg/dLHigh Triglyceride: 200-499 mg/dLVery High Triglyceride: greater than or equal to 5OO mg/dL Cholesterol 118 <200 mg/dL [facility] Comment:Desirable Cholestero l: less than 200 mg/dLBorderline High Cholesterol: 200-239 mg/dLHigh Cholesterol: greater than 239 mg/dL LDL Cholesterol Calculated 61 <100 mg/dL [facility] Comment:Desirable LDL: less than 100 mg/dLNear Optimal/Above Optimal LDL: 110- 129 mg/dLBorderline High LDL: 130-159 mg/dLHigh LDL: 160-189 mg/dLVery High LDL: greater than or equal to 190 mg/dL HDL Cholesterol 42 >40 mg/dL [facility] Comment:Desirable HDL: great er than 40 mg/dL Note: This HDL assay may give artificially low results in patients with liver disease. Blood Venous blood specimen / Unknown 11/24/2024 12:10 PM EST 11/24/2024 1:22 PM EST us Mary Carmen Mckeon MD LAB BLOOD ORDERABLES Final Result [facility] [address] [place] [address] [phone] * Cologuard?? colon cancer screening (05/23/2024 12:00 PM EDT) Cologuard Result Negative Negative 05/31/20 10:33 AM EDT [employer] (CLIA #:[id number]) Comment: NEGATIVE TEST RESULT. A negative Cologuard result indicates a low likelihood that a colorectal cancer (CRC) or advanced adenoma (adenomatous polyps with more advanced pre-malignant features) is present. The chance that a person with a negative Cologuard test has a colorectal cancer is less than 1 in 1500 (negative predictive value >99.9%) or has an advanced adenoma is less than 5.3% (negative predictive value 94.7%). These data are based on a prospective cross-sectional study of 10,000 individuals at average risk for colorectal cancer who were screened with both Cologuard and colonoscopy. (Tigre Spivey al, N Engl J Med 2014;370(14):4406-3014) The normal value (reference range) for this assay is negative. COLOGUARD RE-SCREENING RECOMMENDATION: Periodic colorectal cancer screening is an important part of preventive healthcare for asymptomatic individuals at average risk for colorectal cancer. Following a negative Cologuard result, the [place] [employer] and U.S. Multi-Society Task Force screening guidelines recommend a Cologuard re-screening interval of 3 years. References: [place] [employer] Guideline for Colorectal Cancer Screening: https://www.cancer.org/cancer/qtcex-sgdpkh-zaykbf/rgozibhut-rzhrwablf-kdrgfrq/ac s-rec ommendations.html.; Sonny DK, Omar CR, Rivera LanceK, Colorectal Cancer Screening: Recommendations for Physicians and Patients from the U.S. Multi-Society Task Force on Colorectal Cancer Screening , Am J Gastroenterology 2017; 112:6773-8940. TEST DESCRIPTION: Composite algorithmic analysis of stool DNA-biomarkers with hemoglobin immunoassay. Quantitative values of individual biomarkers are not reportable and are not associated with individual biomarker result reference ranges. Cologuard is intended for colorectal cancer screening of adults of either sex, 45 years or older, who are at average-risk for colorectal cancer (CRC). Cologuard has been approved for use by the U.S. FDA. The performance of Cologuard was established in a cross sectional study of average-risk adults aged 50-84. Cologuard performance in patients ages 45 to 49 years was estimated by sub-group analysis of near-age groups. Colonoscopies performed for a positive result may find as the most clinically significant lesion: colorectal cancer [4.0%], advanced adenoma (including sessile serrated polyps greater than or equal to 1cm diameter) [20%] or non- advanced adenoma [31%]; or no colorectal neoplasia [45%]. These estimates are derived from a prospective cross-sectional screening study of 10,000 individuals at average risk for colorectal cancer who were screened with both Cologuard and colonoscopy. (Tigre Spivey al, N Engl J Med 2014;370(14):3980-8657.) Cologuard may produce a false negative or false positive result (no colorectal cancer or precancerous polyp present at colonoscopy follow up). A negative Cologuard test result does not guarantee the absence of CRC or advanced adenoma (pre-cancer). The current Cologuard screening interval is every 3 years. ([place] [employer] and U.S. Multi-Society Task Force). Cologuard performance data in a 10,000 patient pivotal study using colonoscopy as the reference method can be accessed at the following location: www.[employer].Mostro/results. Additional description of the Cologuard test process, warnings and precautions can be found at www.[employer].com. Stool specimen (specimen) 05/23/2024 12:00 PM EDT 05/25/2024 1:43 PM EDT Mary Carmen Mckeon MD LAB MOLECULAR DIAGNOSTICS ORDERABLES Final Result [employer] (CLIA #:[id number]) [address] [place] [address], * HIV Ab/Ag ([facility]) (05/21/2023 10:58 AM EDT) HIV AB/AG Nonreactive Nonreactive [facility] Comment:HIV-1 p24 Ag and/or HIV-1/HIV-2 Ab not detected.A test result that is nonreactive does not exclude thepossibility of exposure to or infection with HIV-1 and/orHIV-2. Nonreactive results in this assay for individualswith prior exposure to HIV-1 and/or HIV-2 may be due toantigen and antibody levels that are below the limit ofdetection of this assay.The [facility] Doctor HIV Ag/Ab Combo assay result andsupplemental assay results should be interpreted inconjunction with the patient's clinical presentation,history and other laboratory results. If the results areinconsistent with clinical evidence, additional testing issuggested to confirm the result. 05/21/2023 10:5 8 AM EDT 05/21/2023 1:35 PM EDT Mary Carmen Mckeon MD LAB BLOOD ORDERABLES Final Result Performing Organization Address City/[facility]/ZIP Co de Phone Number [facility] [address] [place] [address] [phone] * HM Hepatitis C Antibody (09/09/2018) Hepatitis C Antibody Nonreactive Blood Francisco Mendieta MD HEALTH MAINTENANCE Final Result from Last 3 Months or Most Recently Relevant to Health Maintenance Insurance [facility] STANDARD [address] [place] Advance Directives Documents on File Type Date Recorded Patient Story Writer Expl anation Advance Directives and Living Will 05/11/2024 2:35 PM Health Care Proxy Care Teams Information Technology Associate Relationship Specialty Start Date End Date Wood, MD Mary Carmen [address] [place] [phone] PCP - General Family Medicine 10/04/18 Suly Mendoza PharmD [address] [place] [address] Pharmacist Internal Medicine 08/17/24 Quiana Keene [address] - [address] [place] [address] Plastic Surgery 01/06/25 Sintia Petty [address] [place] [phone] Pain Medicine 03/28/25 Kimmie Zamora MD [address] [place] [address] Sleep Medicine 03/29/25 Addison Araujo LOGGING SUPERVISOR Cardiology 11/24/24 Jeanie Day PA-C Vascular Surgery 04/21/25
--- OUTSIDE RECORDS SUMMARY | 2025-06-26 14:54 | XMS_ITS | Encounter Summary ---
Author Organization [employer] Address 75 [facility] 7 [place] [address] Care Team Providers Care Languages And Literature Instructor Name Role Phone Mary Carmen Mckeon MD Primary Care Provider +1- [phone] Suly Mendoza PharmD Unavailable [phone] Quiana Keene Unavailable Sintia Petty Unavailable Kimmie Zamora MD Unavailable Reason for Visit * Reason Onset Date Comments Appointment Request 09/15/2024 Encounter Details Date Type Department Care Team (Late st Contact Info) Description 09/15/2024 Telephone [facility] [address] [place], [place] [phone] Mary Carmen Mckeon MD [address] [place], [place] [phone] Appointment Request Social History Tobacco Use Types Packs/Day Years Used Date Smoking Tobacco: Every Day Cigarettes Smokeless Tobacco: Never Depression Answer Date Recorded Patient Health Questionnaire-9 Score 0 05/21/2023 Housing Stability Answer Date Recorded What is your housing situation today? I have housing today, but I am worried about losing housing in the future 09/07/[address] you li ve. Do you have problems with any of the following? None of the above 09/07/2023 Food Insecurity Answer Date Recorded Within the past 12 months, y ou worried that your food would run out before you got money to buy more: Never True 09/07/2023 Within the past 12 months,th e food you bought just didn't last and you didn't have enough money to get more: Never True 04/2023 Transportation Answer Date Recorded In the past 12 months, has l ack of transportation kept you from medical appts, meetings, work or from getting things needed for daily living? No 09/07/2023 Utilities Answer Date Recorded In the past 12 months, has t he electric, gas, oil or water company threatened to shut off services in your home? No 09/07/2023 Depression Answer Date Recorded Patient Health Questionnaire-2 Score 0 05/21/2023 Sex and Gender Information Value Date Recorded Sex Assigned at Male 09/01/2022 10:24 AM EDT Legal Sex Female 10:24 AM EDT Gender Identity Transgender Female 09/01/2022 10 :24 AM EDT Sexual Orientation Choose not to disclose 2021 10:24 AM EDT documented as of this encounter Miscellaneous Notes * Telephone Encounter - Vivek Palomo - 09/15/2024 1:47 PM EST Tc from pt requesting to r/s her appt from 09/14. Contact pt at [phone] documented in this encounter Plan of Treatment Upcoming Encounters Date Type Department Care Team (Late st Contact Info) Description 08/16/2025 10:15 AM EDT Office Visit [facility] [address] [place] [address] Mary Carmen Mckeon MD [address] [place] [address] documented as of this encounter Goals Goal Patient Goal Type Associated Problems Recent Progress Patient-Stated? Author Blood Pressure < 140/90 Blood Pressure 137/79( 025 10:49 AM EST) No Piers-Gambl e, Suly, PharmD Record your blood pressure once per day Blood Pressure No Piers-Gambl e, Suly, PharmD documented as of this encounter Visit Diagnoses Not on filedocumented in this encounter Additional Health Concerns Assessment Noted Time PHQ-9 Depression Total Score: 0 05/21/20 23 9:36 AM EDT documented as of this encounter Care Teams Languages And Literature Instructor Relationship Specialty Start Date End Date Mary Carmen Mckeon MD [address] [place] [address] PCP - General Family Medicine 10/04/18 Suly Mendoza PharmD [address] [place] [address] Pharmacist Internal Medicine 08/17/24 Quiana Keene [address] Plastic Surgery 01/06/25 Sintia Petty [address] [place] [address] Pain Medicine 03/28/25 Kimmie Zamora MD [address] [place] [address] Sleep Medicine 03/29/25 Addison Araujo SUPERVISOR BINDERY Cardiology 11/24/24 Jeanie Day PA-C Vascular Surgery 04/21/25 documented as of this encounter
--- OUTSIDE RECORDS SUMMARY | 2025-06-26 14:54 | XMS_ITS | Encounter Summary ---
Author Organization [employer] Address 75 [facility] 7t [place] [address] Care Team Providers Care Coordinator Of Health Services Name Role Phone Mary Carmen Mckeon MD Primary Care Provider Suly Mendoza PharmD Unavailable Quiana Keene Unavailable Sintia Petty Unavailable Kimmie Zamora MD Unavailable Reason for Visit * Reason Comments Med Refill Encounter Details Date Type Department Care Team (Late st Contact Info) Description 10/03/2024 Refill [facility] MED & PEDS [address] [place], [place] [phone] Mary Carmen Mckeon MD [address] [place], [place] [phone] At high risk for coronary artery disease; Candidiasis Social History Tobacco Use Types Packs/Day [...] Description 08/16/2025 10:15 AM EDT Office Visit [facility] [address] [place] [address] Mary Carmen Mckeon MD [address] [place] [address] documented as of this encounter Goals Goal Patient Goal Type Associated Problems Recent Progress Patient-Stated? Author Blood Pressure < 140/90 Blood Pressure 137/79( 025 10:49 AM EST) No Piers-Gambl e, Suly, PharmD Record your blood pressure once per day Blood Pressure No Piers-Gambl e, Suly, PharmD documented as of this encounter Visit Diagnoses Diagnosis At high risk for coronary artery disease Candidiasis documented in this encounter Additional Health Concerns Assessment Noted Time PHQ-9 Depression Total Score: 0 05/21/20 23 9:36 AM EDT documented as of this encounter Care Teams Coordinator Of Health Services Relationship Specialty Start Date End Date Mary Carmen Mckeon MD [address] [place] [address] PCP - General Family Medicine 10/04/18 Suly Mendoza PharmD [address] [place] [address] Pharmacist Internal Medicine 08/17/[address] [place] [address] Plastic Surgery 01/06/25 Sintia Petty [address] [facility] [address] [place] [address] Pain Medicine 03/28/25 Kimmie Zamora MD [address] [place] [address] Sleep Medicine 03/29/25 Addison Araujo LENS GENERATOR Cardiology 11/24/24 Jeanie Day PA-C Vascular Surgery 04/21/25 documented as of this encounter
--- OUTSIDE RECORDS SUMMARY | 2025-06-26 14:54 | XMS_ITS | Encounter Summary ---
Author Organization [employer] Address 75 [facility] 7 [place] [address] Care Team Providers Care Manufacturing Executive Name Role Phone Mary Carmen Mckeon MD Primary Care Provider Suly Mendoza PharmD Unavailable Quiana Keene Unavailable Sintia Petty Unavailable Kimmie Zamora MD Unavailable Reason for Visit * Reason Comments Med Refill Encounter Details Date Type Department Care Team (Late st Contact Info) Description 05/21/2024 Refill [facility] MED & PEDS [address] [place], [place] [phone] Mary Carmen Mckeon MD [address] [place], [place] [phone] Candidiasis; Pain Social History Tobacco Use Types Packs/Day [...] Description 08/16/2025 10:15 AM EDT Office Visit [facility] [address] [place] [address] Mary Carmen Mckeon MD [address] [place] [address] documented as of this encounter Visit Diagnoses Diagnosis Candidiasis Pain Generalized pain documented in this encounter Additional Health Concerns Assessment Noted Time PHQ-9 Depression Total Score: 0 05/21/20 23 9:36 AM EDT documented as of this encounter Care Teams Manufacturing Executive Relationship Specialty Start Date End Date Mary Carmen Mckeon MD [address] [place] [address] PCP - General Family Medicine 10/04/18 Suly Mendoza, JamaD [address] [place] [address] Pharmacist Internal Medicine 08/17/24 Quiana Keene [address] [place] Plastic Surgery 01/06/25 Sintia Petty [address] [place] [address] Pain Medicine 03/28/25 Kimmie Zamora MD [address] [place] [address] Sleep Medicine 03/29/25 Addison Araujo ORGAN GRINDER Cardiology 11/24/24 Jeanie Day PA-C Vascular Surgery 04/21/25 documented as of this encounter
--- OUTSIDE RECORDS SUMMARY | 2025-06-26 14:54 | XMS_ITS | Encounter Summary ---
Author Organization [employer] Address 75 [facility] 7 [place] [address] Care Team Providers Care Cable Mechanic Name Role Phone Mary Carmen Mckeon MD Primary Care Provider Suly Mendoza PharmD Unavailable [phone] Quiana Keene Unavailable Sintia Petty Unavailable Kimmie Zamoar MD Unavailable Encounter Details Date Type Department Care Team (Late st Contact Info) Description 01/15/2024 Orders Only [facility] [address] [place], [place] [phone] Mary Carmen Mckeon MD [address] [place], [place] [phone] History of tobacco use (Primary Dx) Social History Tobacco Use Types Packs/Day Years Used Date Smoking Tobacco: Never Smokeless Tobacco: Never Depression Answer Date Recorded [...] Description 08/16/2025 10:15 AM EDT Office Visit [facility] [address] [place] [address] Mary Carmen Mckeon MD [address] [place] [address] documented as of this encounter Visit Diagnoses Diagnosis History of tobacco use- Primary Personal history of tobacco use, presenting hazards to health documented in this encounter Additional Health Concerns Assessment Noted Time PHQ-9 Depression Total Score: 0 05/21/20 23 9:36 AM EDT documented as of this encounter Care Teams Cable Mechanic Relationship Specialty Start Date End Date Mary Carmen Mckeon MD [address] [place] [address] PCP - General Family Medicine 10/04/18 Suly Mendoza, Jennifer [address] [place] [address] Pharmacist Internal Medicine 08/17/24 Quiana Keene [address] [facility] [place] [place] Plastic Surgery 01/06/25 Sintia Petty [address] [place] [address] Drive [address] [place] [address] Pain Medicine 03/28/25 Kimmie Zamora MD [address] [place] [address] Sleep Medicine 03/29/25 Addison Araujo ENVIRONMENTAL PLANNER Cardiology 11/24/24 Jeanie Day PA-C Vascular Surgery 04/21/25 documented as of this encounter
--- OUTSIDE RECORDS SUMMARY | 2025-06-26 14:54 | XMS_ITS | Encounter Summary ---
Author Organization [employer] Address 75 [facility] 7 [place] [address] Care Team Providers Care Aesthetician Name Role Phone Mary Carmen Mckeon MD Primary Care Provider [phone]- [phone] Suly Mendoza PharmD Unavailable [phone] Quiana Keene Unavailable Sintia Petty Unavailable Kimmie Zamora MD Unavailable Reason for Visit * Reason Onset Date Comments Med Refill 05/17/2024 Encounter Details Date Type Department Care Team (Late st Contact Info) Description 05/17/2024 Telephone [facility] [address] [place], [place] [phone] Mary Carmen Mckeon MD [address] [place], [place] [phone] Med Refill Social History Tobacco Use Types Packs/Day Years [...] encounter Miscellaneous Notes * Telephone Encounter - Darlene Luis LPN - 05/17/2024 1:50 PM EDT Medication pended to PCP. * Telephone Encounter - Aldair Davis - 05/17/2024 1:48 PM EDT TC from pt requesting medication refill. Medications needing refill : hydrOXYzine HCl (Atarax) 25 MG tablet [email or web address] [place] [place] - [address] [place] [address] documented in this encounter Plan of Treatment Upcoming Encounters Date Type Department Care Team (Late st Contact Info) Description 08/16/2025 10:15 AM EDT Office Visit [facility] [address] [place] [address] Mary Carmen Mckeon MD [address] [place], [place] [phone] documented as of this encounter Visit Diagnoses Not on filedocumented in this encounter Additional Health Concerns Assessment Noted Time PHQ-9 Depression Total Score: 0 05/21/20 23 9:36 AM EDT documented as of this encounter Care Teams Aesthetician Relationship Specialty Start Date End Date Mary Carmen Mckeon MD [address] [place] [address] PCP - General Family Medicine 10/04/18 Suly Mendoza PharmD [address] [place] [address] Pharmacist Internal Medicine 08/17/24 Quiana Keene [address] Plastic Surgery 01/06/25 Sintia Petty [address] [place] [address] Drive [address] [place] [address] Pain Medicine 03/28/25 Kimmie Zamora MD [address] [place] [address] Sleep Medicine 03/29/25 Addison Araujo CHILLER TECHNICIAN Cardiology 11/24/24 Jeanie Day PA-C Vascular Surgery 04/21/25 documented as of this encounter
--- OUTSIDE RECORDS SUMMARY | 2025-06-26 14:54 | XMS_ITS | Encounter Summary ---
Author Organization [employer] Address 75 [facility] 7 [place] [address] Care Team Providers Care Victims Advocate Clerk/Specialist Name Role Phone Mary Carmen Mckeon MD Primary Care Provider Suly Mendoza PharmD Unavailable Quiana Keene Unavailable Sintia Petty Unavailable Kimmie Zamora MD Unavailable Reason for Visit * Reason Comments Med Refill Encounter Details Date Type Department Care Team (Late st Contact Info) Description 10/03/2024 Refill [facility] [address] [place], [place] [phone] Suly Mendoza, PharmD [address] [place], [place] [phone] Dyslipidemia; Hypertension, unspecified type Social History Tobacco Use Types Packs/Day Years [...] Description 08/16/2025 10:15 AM EDT Office Visit [facility] [address] [place] [address] Mary Carmen Mckeon MD [address] [place] [phone] documented as of this encounter Goals Goal Patient Goal Type Associated Problems Recent Progress Patient-Stated? Author Blood Pressure < 140/90 Blood Pressure 137/79( 025 10:49 AM EST) No Terrys-Gambl e, Suly, PharmD Record your blood pressure once per day Blood Pressure No Piers-Gambl e, Suly, PharmD documented as of this encounter Visit Diagnoses Diagnosis Dyslipidemia Other and unspecified hyperlipidemia Hypertension, unspecified type documented in this encounter Additional Health Concerns Assessment Noted Time PHQ-9 Depression Total Score: 0 05/21/20 23 9:36 AM EDT documented as of this encounter Care Teams Victims Advocate Clerk/Specialist Relationship Specialty Start Date End Date Mary Carmen Mckeon MD [address] [place] [address] PCP - General Family Medicine 10/04/18 Suly Mendoza PharmD [address] [place] [address] Pharmacist Internal Medicine 08/17/24 Quiana Keene [address] - [address] [place] [address] Plastic Surgery 01/06/25 Sintia Petty [address] [facility] [address] [place] [address] Pain Medicine 03/28/25 Kimmie Zamora MD [address] [place] [address] Sleep Medicine 03/29/25 Addison Araujo HEAD GROWER Cardiology 11/24/24 Jeanie Day PA-C Vascular Surgery 04/21/25 documented as of this encounter
--- OUTSIDE RECORDS SUMMARY | 2025-06-26 14:54 | XMS_ITS | Encounter Summary ---
Author Organization [employer] Address 75 [facility] 7 [place] [address] Care Team Providers Care Machine Design Teacher Name Role Phone Mary Carmen Mckeon MD Primary Care Provider + [phone] Suly Mendoza PharmD Unavailable Quiana Keene Unavailable Sintia Petty Unavailable Kimmie Zamora MD Unavailable Reason for Visit * Reason Comments Med Refill Encounter Details Date Type Department Care Team (Late st Contact Info) Description 04/14/2025 Refill [facility] [address] [place], [place] [phone] Mary Carmen Mckeon MD [address] [place], [place] [phone] Gender dysphoria Social History Tobacco Use Types Packs/Day Years [...] the past 12 months, has t he gamesGRABR, gas, oil or water company threatened to [...] Description 08/16/2025 10:15 AM EDT Office Visit [facility] [address] [place] [address] Mary Carmen Mckeon MD [address] [place] [address] documented as of this encounter Goals Goal Patient Goal Type Associated Problems Recent Progress Patient-Stated? Author Blood Pressure < 140/90 Blood Pressure 137/79( 025 10:49 AM EST) No Piers-Gambl e, Suly, PharmD Record your blood pressure once per day Blood Pressure No Piers-Gambl e, Suly, PharmD documented as of this encounter Visit Diagnoses Diagnosis Gender dysphoria documented in this encounter Additional Health Concerns Assessment Noted Time PHQ-9 Depression Total Score: 10 025 1:27 PM EST documented as of this encounter Care Teams Machine Design Teacher Relationship Specialty Start Date End Date Mary Carmen Mckeon MD [address] [place] [address] PCP - General Family Medicine 10/04/18 Suly Mendoza PharmD [address] [place] [address] Pharmacist Internal Medicine 08/17/24 Quiana Keene [address] Plastic Surgery 01/06/25 Sintia Petty [address] [place] [address] Drive [address] [place] [address] Pain Medicine 03/28/25 Kimmie Zamora MD [address] [place] [address] Sleep Medicine 03/29/25 Addison Araujo MOLD MOVER Cardiology 11/24/24 Jeanie Day PA-C Vascular Surgery 04/21/25 documented as of this encounter
--- OUTSIDE RECORDS SUMMARY | 2025-06-26 14:54 | XMS_ITS | Clinical Summary ---
Author Organization [facility] Address [address] [place] [address] Care Team Providers Care Certified Drug Counselor Name Role Phone Mary Carmen Mckeon Primary Care Provider +1- [phone] Allergies No known active allergies Medications estradioL [...] Health Maintenance Due Date Last Done Comments Colonoscopy 1965 HIV Screening 1965 Hepatitis C Screening [address] Lung Cancer Screening [...] Test 05/10/2025 05/10/2024 Influenza Vaccine (#1) 2025 , 11/03/2019, 09/09/2018, Additional history exists Cologuard 05/23/2027 05/23/2024 Colon Cancer Screening 05/23/2027 DTaP,Tdap,and Td Vaccines (2 - Td or Tdap) 12/24/2027 12/24/2017 Zoster Vaccines Completed 05/21/2023, 12/02/2022 Pneumococcal Vaccine: 50+ Years Completed 4 Insurance [facility] [place] [id number] Advance Directives Documents on File Type Date Recorded Patient Silver Spray Worker Expl anation Health Care Proxy 07/26/2024 12:55 PM * Full Code (Latest Code Status on File) Date Activated Date Inactivated Comments 07/26/2024 11:45 AM 07/26/2024 6:21 PM Care Teams Certified Drug Counselor Relationship Specialty Start Date End Date Mary Carmen Mckeon: [phone] [address] [place] [address] PCP - General Family Medicine 08/24/23
--- OUTSIDE RECORDS SUMMARY | 2025-06-26 14:54 | XMS_ITS | Encounter Summary ---
Author Organization [facility] [employer] Address 75 [facility] 7t [place] [address] Care Team Providers Care Salon Sales Consultant Name Role Phone Mary Carmen Mckeon MD Primary Care Provider [phone]- [phone] Suly Mendoza PharmD Unavailable Quiana Keene Unavailable Sintia Petty Unavailable Kimmie Zamora MD Unavailable Reason for Visit * Reason Comments Med Refill Encounter Details Date Type Department Care Team (Late st Contact Info) Description 08/05/2023 Refill [facility] MED & PEDS [address] [place], [place] [phone] Mary Carmen Mckeon MD [address] [place], [place] [phone] Social History Tobacco Use Types Packs/Day Years Used Date Smoking Tobacco: Never Smokeless Tobacco: Never Depression Answer Date Recorded Patient Health Questionnaire-9 Score 0 05/21/2023 Depression Answer Date Recorded Patient Health Questionnaire-2 [...] Description 08/16/2025 10:15 AM EDT Office Visit [facility] [address] [place] [address] Mary Carmen Mckeon MD [address] [place] [address] documented as of this encounter Visit Diagnoses Not on filedocumented in this encounter Additional Health Concerns Assessment Noted Time PHQ-9 Depression Total Score: 0 05/21/20 9:36 AM EDT documented as of this encounter Care Teams Salon Sales Consultant Relationship Specialty Start Date End Date Mary Carmen Mckeon MD [address] [place], [place] [phone] PCP - General Family Medicine 10/04/18 Suly Mendoza PharmD [address] [place] [address] Pharmacist Internal Medicine 08/17/24 Quiana Keene [address] - [address] [place] [address] Plastic Surgery 01/06/25 Sintia Petty [address] [facility] [address] [place] [address] Pain Medicine 03/28/25 Kimmie Zamora MD [address] [place] [address] Sleep Medicine 03/29/25 Addison Araujo BUILDING CONSTRUCTION ESTIMATOR Cardiology 11/24/24 Jeanie Day PA-C Vascular Surgery 04/21/25 documented as of this encounter
--- OUTSIDE RECORDS SUMMARY | 2025-06-26 14:54 | XMS_ITS | Encounter Summary ---
Author Organization [employer] Address 75 [facility] 7 [place] [address] Care Team Providers Care Laboratory Administrative Director Name Role Phone Mary Carmen Mckeon MD Primary Care Provider Suly Mendoza PharmD Unavailable Quiana Keene Unavailable Sintia Petty Unavailable Kimmie Zamora MD Unavailable Reason for Visit * Reason Comments Med Refill Encounter Details Date Type Department Care Team (Late st Contact Info) Description 06/22/2025 Refill [facility] MEDICINE [address] [place], [place] [phone] Mary Carmen Mckeon MD [address] [place], [place] [phone] Constipation, unspecified constipation type Social History Tobacco Use Types Packs/Day [...] Description 08/16/2025 10:15 AM EDT Office Visit [facility] MEDICINE [address] [place] [address] Mary Carmen Mckeon MD [address] [place] [address] documented as of this encounter Goals Goal Patient Goal Type Associated Problems Recent Progress Patient-Stated? Author Blood Pressure < 140/90 Blood Pressure 137/79( 025 10:49 AM EST) No Piers-Gambl e, Suly, PharmD Record your blood pressure once per day Blood Pressure No Piers-Gambl e, Suly, PharmD documented as of this encounter Visit Diagnoses Diagnosis Constipation, unspecified constipation type documented in this encounter Additional Health Concerns Assessment Noted Time PHQ-9 Depression Total Score: 10 025 1:27 PM EST documented as of this encounter Care Teams Laboratory Administrative Director Relationship Specialty Start Date End Date Mary Carmen Mckeon MD [address] [place] [address] PCP - General Family Medicine 10/04/18 Suly Mendoza, Jennifer [address] [place] [address] Pharmacist Internal Medicine 08/17/24 Quiana Keene [address] Plastic Surgery 01/06/25 Sintia Petty [address] [place] [address] [address] [place] [address] Pain Medicine 03/28/25 Kimmie Zamora MD [address] [place] [address] Sleep Medicine 03/29/25 Addison Araujo ACUTE CARE CERTIFIED NURSING ASSISTANT Cardiology 11/24/24 Jeanie Day PA-C Vascular Surgery 04/21/25 documented as of this encounter
--- OUTSIDE RECORDS SUMMARY | 2025-06-26 14:54 | XMS_ITS | Encounter Summary ---
Author Organization [employer] Address [address] [facility] 7t [place] [address] Care Team Providers Care Child Care Attendant School Name Role Phone Mary Carmen Mckeon MD Primary Care Provider +1- [phone] Suly Mendoza PharmD Unavailable [phone] Quiana Keene Unavailable Sintia Petty Unavailable Kimmie Zamora MD Unavailable Reason for Visit * Reason Comments Med Refill Encounter Details Date Type Department Care Team (Late st Contact Info) Description 07/29/2023 Refill [facility] MED & PEDS [address] [place], [place] [phone] Mary Carmen Mckeon MD [address] [place], [place] [phone] Social History Tobacco Use Types Packs/Day Years [...] Description 08/16/2025 10:15 AM EDT Office Visit [facility] MEDICINE 230 [place] [address] Mary Carmen Mckeon MD 230 [place] [address] documented as of this encounter Visit Diagnoses Not on filedocumented in this encounter Additional Health Concerns Assessment Noted Time PHQ-9 Depression Total Score: 0 05/21/20 9:36 AM EDT documented as of this encounter Care Teams Child Care Attendant School Relationship Specialty Start Date End Date Mary Carmen Mckeon MD [address] [place], [place] [phone] PCP - General Family Medicine 10/04/18 Suly Mendoza PharmD [address] [place] [address] Pharmacist Internal Medicine 08/17/24 Quiana Keene [address] - [address] [place] [address] Plastic Surgery 01/06/25 Sintia Petty [address] [facility] [address] [place] [address] Pain Medicine 03/28/25 Kimmie Zamora MD [address] [place] [address] Sleep Medicine 03/29/25 Addison Araujo MARKETING DEVELOPMENT MANAGER Cardiology 11/24/24 Jeanie Day PA-C Vascular Surgery 04/21/25 documented as of this encounter
--- OUTSIDE RECORDS SUMMARY | 2025-06-26 14:54 | XMS_ITS | Encounter Summary ---
Author Organization [employer] Address 75 [facility] 7t [place] [address] Care Team Providers Care Elevator Erector Name Role Phone Mary Carmen Mckeon MD Primary Care Provider Suly Mendoza PharmD Unavailable Quiana Keene Unavailable Sintia Petty Unavailable Kimmie Zamora MD Unavailable Encounter Details Date Type Department Care Team (Late st Contact Info) Description 02/21/2025 Orders Only [facility] MEDICINE 230 [place], [place] [phone] Mary Carmen Mckeon MD 230 [place], [place] [phone] Gender dysphoria Social History Tobacco Use Types [...] Description 08/16/2025 10:15 AM EDT Office Visit [facility] MEDICINE [address] [place] [address] Mary Carmen Mckeon MD [address] [place] [address] documented as of this encounter Goals Goal [...] documented as of this encounter Care Teams Elevator Erector Relationship Specialty Start Date End Date Mary Carmen Mckeon MD [address] [place] [address] PCP - General Family Medicine 10/04/18 Suly Mendoza PharmD 230 [place] [address] Pharmacist Internal Medicine 08/17/24 Quiana Keene [address] - [address] [place] [address] Plastic Surgery 01/06/25 Sintia Petty [address] [place] [address] Drive [address] [place] [address] Pain Medicine 03/28/25 Kimmie Zamora MD [address] [place] [address] Sleep Medicine 03/29/25 Addison Araujo STENCIL TYPIST Cardiology 11/24/24 Jeanie Day PA-C Vascular Surgery 04/21/25 documented as of this encounter
--- OUTSIDE RECORDS SUMMARY | 2025-06-26 14:54 | XMS_ITS | Encounter Summary ---
Author Organization [employer] Address 75 [facility] 7t [place] [address] Care Team Providers Care Edging Machine Setter Name Role Phone Mary Carmen Mckeon MD Primary Care Provider [phone]- [phone] Suly Mendoza PharmD Unavailable Quiana Keene Unavailable Sintia Petty Unavailable Kimmie Zamora MD Unavailable Reason for Visit * Reason Comments Med Refill Encounter Details Date Type Department Care Team (Late st Contact Info) Description 01/19/2023 Refill [facility] CHC MED & PEDS [address] [place], [place] [phone] Mary Carmen Mckeon MD [address] [place] [address] [phone] At high risk for coronary artery disease Social History Tobacco Use Types Packs/Day Years [...] Description 08/16/2025 10:15 AM EDT Office Visit [facility] MEDICINE 230 [place] [address] Mary Carmen Mckeon MD 230 [place] [address] documented as of this encounter Visit Diagnoses Diagnosis At high risk for coronary artery disease documented in this encounter Care Teams Edging Machine Setter Relationship Specialty Start Date End Date Mary Carmen Mckeon MD 230 [place] [address] PCP - General Family Medicine 10/04/18 Suly Mendoza PharmD 230 [place] [address] Pharmacist Internal Medicine 08/17/24 Quiana Keene [address] Plastic Surgery 01/06/25 Sintia Petty [address] [place] [address] Pain Medicine 03/28/25 Kimmie Zamora MD [address] [place] [address] Sleep Medicine 03/29/25 Addison Araujo STRIPPING SHOVEL OPERATOR Cardiology 11/24/24 Jeanie Day PA-C Vascular Surgery 04/21/25 documented as of this encounter
--- OUTSIDE RECORDS SUMMARY | 2025-06-26 14:54 | XMS_ITS | Encounter Summary ---
Author Organization [employer] Address 75 [facility] 7t [place] [address] Care Team Providers Care Home Advisor Name Role Phone Mary Carmen Mckeon MD Primary Care Provider +1- [phone] Suly Mendoza PharmD Unavailable Quiana Keene Unavailable Sintia Petty Unavailable Kimmie Zamora MD Unavailable Reason for Visit * Reason Comments Med Refill Encounter Details Date Type Department Care Team (Late st Contact Info) Description 02/17/2023 Refill [facility] CHC MED & PEDS [address] [place] [address] Mary Carmen Mckeon MD [address] [place] [address] [phone] Pain Social History Tobacco Use Types Packs/Day [...] Description 08/16/2025 10:15 AM EDT Office Visit [facility] MEDICINE 230 [place], [place] [phone] Mary Carmen Mckeon MD 230 [place] [address] documented as of this encounter Visit Diagnoses Diagnosis Pain Generalized pain documented in this encounter Care Teams Home Advisor Relationship Specialty Start Date End Date Mary Carmen Mckeon MD 230 [place] [address] PCP - General Family Medicine 10/04/18 Suly Mendoza, JamaD 230 [place] [address] Pharmacist Internal Medicine 08/17/24 Quiana Keene [address] Plastic Surgery 01/06/25 Sintia Petty [address] [place] [address] Pain Medicine 03/28/25 Kimmie Zamora MD 7[address] [place] [address] Sleep Medicine 03/29/25 Addison Araujo SIX SIGMA PROJECT MANAGER Cardiology 11/24/24 Jeanie Day PA-C Vascular Surgery 04/21/25 documented as of this encounter
--- OUTSIDE RECORDS SUMMARY | 2025-06-26 14:54 | XMS_ITS | Encounter Summary ---
Author Organization [employer] Address 75 [facility] 7 [place] [address] Care Team Providers Care Biodiesel Production Associate Name Role Phone Mary Carmen Mckeon MD Primary Care Provider [phone]- [phone] Suly Mendoza PharmD Unavailable [phone] Quiana Keene Unavailable Sintia Petty Unavailable Kimmie Zamroa MD Unavailable Reason for Visit * Reason Onset Date Comments Results 07/13/2024 Encounter Details Date Type Department Care Team (Late st Contact Info) Description 07/13/2024 Telephone [facility] MEDICINE 230 [place], [place] [phone] Mary Carmen Mckeon MD 230 [place], [place] [phone] Results Social History Tobacco Use Types Packs/Day Years [...] encounter Miscellaneous Notes * Telephone Encounter - Mary Carmen Mckeon MD - 07/18/2024 10:43 AM EDT Please let Yokasta know her urine showed some protein that is likely from her blood pressure being high. Suly form the pharmacy will reestablish with her to work on blood pressure. There is a medication for blood pressure that can help the protein in the urine. Suly will talk to her about it. Thank you. * Telephone Encounter - Aldair Davis - 07/13/2024 12:10 PM EDT TC from pt requesting call back regarding Results. Type of results: Urine Date when done: 07/12 Facility: [facility] Patient is requesting for results to be faxed to [phone] Attention Randolph documented in this encounter Plan of Treatment Upcoming Encounters Date Type Department Care Team (Late st Contact Info) Description 08/16/2025 10:15 AM EDT Office Visit [facility] MEDICINE [address] [place] [address] Mary Carmen Mckeon MD 230 [place] [address] documented as of this encounter Goals Goal Patient Goal Type Associated Problems Recent Progress Patient-Stated? Author Blood Pressure < 140/90 Blood Pressure 137/79( 025 10:49 AM EST) No Suly Yin PharmD Record your blood pressure once per day Blood Pressure No Suly Yin PharmD documented as of this encounter Visit Diagnoses Not on filedocumented in this encounter Additional Health Concerns Assessment Noted Time PHQ-9 Depression Total Score: 0 05/21/20 23 9:36 AM EDT documented as of this encounter Care Teams Biodiesel Production Associate Relationship Specialty Start Date End Date Mary Carmen Mckeon MD 230 [place] [address] PCP - General Family Medicine 10/04/18 Suly Mendoza, PharmD 230 [place] [address] Pharmacist Internal Medicine 08/17/24 Quiana Keene [address] Plastic Surgery 01/06/25 Sintia Petty [address] [place] [address] Pain Medicine 03/28/25 Kimmie Zamora MD [address] [place] [address] Sleep Medicine 03/29/25 Addison Araujo GRAPHIC COORDINATOR Cardiology 11/24/24 Jeanie Day PA-C Vascular Surgery 04/21/25 documented as of this encounter
--- OUTSIDE RECORDS SUMMARY | 2025-06-26 14:54 | XMS_ITS | Encounter Summary ---
Author Organization [employer] Address 75 [facility] 7t [place] [address] Care Team Providers Care Qc Lab Technician Name Role Phone Mary Carmen Mckeon MD Primary Care Provider +1- [phone] Suly Mendoza PharmD Unavailable [phone] Quiana Keene Unavailable Sintia Petty Unavailable Kimmie Zamora MD Unavailable Encounter Details Date Type Department Care Team (Late st Contact Info) Description 11/10/2022 Orders Only [facility] CHC MED & PEDS [address] [place] [address] Darlene Luis LPN Social History Tobacco Use Types Packs/Day [...] Description 08/16/2025 10:15 AM EDT Office Visit [facility] MEDICINE 230 [place], [place] [phone] Mary Carmen Mckeon MD [address] [place], [place] [phone] documented as of this encounter Visit Diagnoses Not on filedocumented in this encounter Care Teams Qc Lab Technician Relationship Specialty Start Date End Date Mary Carmen Mckeon MD [address] [place] [address] PCP - General Family Medicine 10/04/18 Suly Mendoza PharmD 230 [place] [address] Pharmacist Internal Medicine 08/17/24 Quiana Keene [address] Plastic Surgery 01/06/25 Sintia Petty [address] [place] [address] Drive [address] [place] [address] Pain Medicine 03/28/25 Kimmie Zamora MD 9 [place] [address] Sleep Medicine 03/29/25 Addison Araujo LIFE EDUCATOR Cardiology 11/24/24 Jeanie Day PA-C Vascular Surgery 04/21/25 documented as of this encounter
--- OUTSIDE RECORDS SUMMARY | 2025-06-26 14:54 | XMS_ITS | Clinical Summary ---
Author Organization [facility] Address [address] [facility] [address] [place] [address] Phone Care Team Providers Care Gunstock Repairer Name Role Phone Mary Carmen Mckeon MD [...] topic Medical Devices Not on file Insurance [facility] CARE MEDICARE REPLACEMENT KARIE BAEZA [id number] [facility] MEDICARE [facility]PLACEMENT [facility] MEDICARE REPLACEMENT [facility] MEDICARE REPLACEMENT [facility] MEDICARE REPLACEMENT [facility] MEDICARE REPLACEMENT KARIE BAEZA [id number] [facility] MEDICARE REPLACEMENT [facility] MEDICARE REPLACEMENT [facility] MEDICARE REPLACEMENT Care Teams Gunstock Repairer Relationship Specialty Start Date End Date [place], Mary Carmen Santoro MD [address] [place] [address] PCP - General Family Medicine 09/14/18 Additional Source Comments The information contained in this document represents components of the legal health record. It is not the complete legal health record.[facility]
--- OUTSIDE RECORDS SUMMARY | 2025-06-26 14:54 | XMS_ITS | Encounter Summary ---
Author Organization [employer] Address 75 [facility] 7t [place] [address] Care Team Providers Care Tube Repairer Name Role Phone Mary Carmen Mckeon MD Primary Care Provider Suly Mendoza PharmD Unavailable Quiana Keene Unavailable Sintia Petty Unavailable Kimmie Zamora MD Unavailable Reason for Visit * Reason Comments Med Refill Encounter Details Date Type Department Care Team (Late st Contact Info) Description 04/10/2025 Refill [facility] MEDICINE 230 [place], [place] [phone] Mary Carmen Mckeon MD 230 [place], [place] [phone] Class 3 severe obesity due to excess calories with serious comorbidity and body mass index (BMI) of 60.0 to 69.9 in adult Social History Tobacco Use Types Packs/Day Years Used Date Smoking Tobacco: Every Day Cigarettes Smokeless Tobacco: Never Depression Answer Date Recorded Patient Health Questionnaire-9 Score 10 11/24/2024 Patient Health Questionnaire-9 Score 10 11/24/2024 Last PHQ-9: Questionnaire Data Not on file 0 11/24/2024 Housing Stability Answer Date Recorded What is your housing situation today? I have camila denise 11/24/[address] you li [...] Description 08/16/2025 10:15 AM EDT Office Visit [facility] MEDICINE [address] [place] [address] Mary Carmen Mckeon MD 230 [place] [address] documented as of this encounter Goals Goal Patient Goal Type Associated Problems Recent Progress Patient-Stated? Author Blood Pressure < 140/90 Blood Pressure 137/79( 025 10:49 AM EST) No Terrys-Gambl juan, Suly, PharmD Record your blood pressure once per day Blood Pressure No Piers-Gambl e, Suly, PharmD documented as of this encounter Visit Diagnoses Diagnosis Class 3 severe obesity due to excess calories with serious comorbidity and body mass index (BMI) of 60.0 to 69.9 in adult documented in this encounter Additional Health Concerns Assessment Noted Time PHQ-9 Depression Total Score: 10 025 1:27 PM EST documented as of this encounter Care Teams Tube Repairer Relationship Specialty Start Date End Date Mary Carmen Mckeon MD 230 [place] [address] PCP - General Family Medicine 10/04/18 Suly Mendoza PharmD 230 [place] [address] Pharmacist Internal Medicine 08/17/24 Quiana Keene [address] Plastic Surgery 01/06/25 Sintia Petty [address] [place] [address] Drive [address] [place] [address] Pain Medicine 03/28/25 Kimmie Zamora MD [address] [place] [address] Sleep Medicine 03/29/25 Addison Araujo PURSE SEINER Cardiology 11/24/24 Jeanie Day PA-C Vascular Surgery 04/21/25 documented as of this encounter
--- OUTSIDE RECORDS SUMMARY | 2025-06-26 14:54 | XMS_ITS | Encounter Summary ---
Author Organization [employer] Address 75 [facility] 7t [place] [address] Care Team Providers Care Preparation Department Supervisor Name Role Phone Mary Carmen Mckeon MD Primary Care Provider +1- [phone] Suly Mendoza PharmD Unavailable Quiana Keene Unavailable Sintia Petty Unavailable Kimmie Zamora MD Unavailable Reason for Visit * Reason Comments Med Refill Encounter Details Date Type Department Care Team (Late st Contact Info) Description 12/25/2022 Refill [facility] CHC MED & PEDS [address] [place] [address] Mary Carmen Mckeon MD [address] [place] [address] [phone] Pain Social History Tobacco Use Types Packs/Day [...] Description 08/16/2025 10:15 AM EDT Office Visit [facility] MEDICINE 230 [place], [place] [phone] Mary Carmen Mckeon MD 230 [place] [address] documented as of this encounter Visit Diagnoses Diagnosis Pain Generalized pain documented in this encounter Care Teams Preparation Department Supervisor Relationship Specialty Start Date End Date Mary Carmen Mckeon MD 230 [place] [address] PCP - General Family Medicine 10/04/18 Suly Mendoza, JamaD 230 [place] [address] Pharmacist Internal Medicine 08/17/24 Quiana Keene [address] Plastic Surgery 01/06/25 Sintia Petty [address] [place] [address] Pain Medicine 03/28/25 Kimmie Zamora MD 7[address] [place] [address] Sleep Medicine 03/29/25 Addison Araujo SCRAP PREPARER Cardiology 11/24/24 Jeanie Day PA-C Vascular Surgery 04/21/25 documented as of this encounter
--- OUTSIDE RECORDS SUMMARY | 2025-06-26 14:54 | XMS_ITS | Encounter Summary ---
Author Organization [employer] Address 75 [facility] 7 [place] [address] Care Team Providers Care Manager Icu Name Role Phone Mary Carmen Mckeon MD Primary Care Provider +1- [phone] Suly Mendoza PharmD Unavailable Quiana Keene Unavailable Sintia Petty Unavailable Kimmie Zamora MD Unavailable Reason for Visit * Reason Onset Date Comments Call Back Request 12/11/2023 Encounter Details Date Type Department Care Team (Late st Contact Info) Description 12/11/2023 Telephone [facility] MEDICINE 230 [place] [address] Mary Carmen Mckeon MD 230 [place], [place] [phone] Call Back Request Social History Tobacco Use Types Packs/Day [...] encounter Miscellaneous Notes * Telephone Encounter - Zoey Lizarraga RN - 12/11/2023 12:46 PM EST Patient stating she usually get 45 packs a month of wipes and they have cut her down to 4, she is out of them and they have not been delivered as they are on back order. * Telephone Encounter - Genevieve Yepez - 12/11/2023 12:38 PM EST Tc from pt requesting a call back, no further details provided. documented in this encounter Plan of Treatment Upcoming Encounters Date Type Department Care Team (Late st Contact Info) Description 08/16/2025 10:15 AM EDT Office Visit [facility] MEDICINE 230 [place] [address] Mary Carmen Mckeon MD [address] [place], [place] [phone] documented as of this encounter Visit Diagnoses Not on filedocumented in this encounter Additional Health Concerns Assessment Noted Time PHQ-9 Depression Total Score: 0 05/21/20 23 9:36 AM EDT documented as of this encounter Care Teams Manager Icu Relationship Specialty Start Date End Date Mary Carmen Mckeon MD 230 [place] [address] PCP - General Family Medicine 10/04/18 Suly Mendoza PharmD 230 [place] [address] Pharmacist Internal Medicine 08/17/24 Quiana Keene [address] Plastic Surgery 01/06/25 Sintia Petty [address] [place] [address] Drive [address] [place] [address] Pain Medicine 03/28/25 Kimmie Zamora MD [address] [place] [address] Sleep Medicine 03/29/25 Addison Araujo SUPERCALENDER OPERATOR Cardiology 11/24/24 Jeanie Day PA-C Vascular Surgery 04/21/25 documented as of this encounter
--- OUTSIDE RECORDS SUMMARY | 2025-06-26 14:54 | XMS_ITS | Encounter Summary ---
Author Organization [employer] Address 75 [facility] 7t [place] [address] Care Team Providers Care Child Adolescent Psychiatrist Name Role Phone Mary Carmen Mckeon MD Primary Care Provider Suly Mendoza PharmD Unavailable Quiana Keene Unavailable Sintia Petty Unavailable Kimmie Zamora MD Unavailable Reason for Visit * Reason Comments Med Refill Encounter Details Date Type Department Care Team (Late st Contact Info) Description 12/09/2024 Refill [facility] MEDICINE 230 [place], [place] [phone] Mary Carmen Mckeon MD 230 [place], [place] [phone] Class 3 severe obesity due to excess calories with serious comorbidity and body mass index (BMI) of 60.0 to 69.9 in adult (CMS/HCC) Social History Tobacco Use Types Packs/Day Years [...] 10:15 AM EDT Office Visit [facility] MEDICINE [address] [place] [address] Mary Carmen Mckeon MD [address] [place] [address] documented as of this encounter Goals Goal Patient Goal Type Associated Problems Recent Progress Patient-Stated? Author Blood Pressure < 140/90 Blood Pressure 137/79( 025 10:49 AM EST) No Terrys-Gambl Suly martinez, PharmD Record your blood pressure once per day Blood Pressure No Terrys-Gambl Suly martinez, PharmD documented as of this encounter Visit Diagnoses Diagnosis Class 3 severe obesity due to excess calories with serious comorbidity and body mass index (BMI) of 60.0 to 69.9 in adult documented in this encounter Additional Health Concerns Assessment Noted Time PHQ-9 Depression Total Score: 10 025 1:27 PM EST documented as of this encounter Care Teams Child Adolescent Psychiatrist Relationship Specialty Start Date End Date Mary Carmen Mckeon MD 230 [place] [address] PCP - General Family Medicine 10/04/18 Suly Mendoza PharmD 230 [place] [address] Pharmacist Internal Medicine 08/17/24 Quiana Keene [address] Plastic Surgery 01/06/25 Sintia Petty [address] [place] [address] Drive [address] [place] [address] Pain Medicine 03/28/25 Kimmie Zamora MD [address] [place] [address] Sleep Medicine 03/29/25 Addison Araujo LITHOGRAPHIC ETCHER Cardiology 11/24/24 Jeanie Day PA-C Vascular Surgery 04/21/25 documented as of this encounter
--- OUTSIDE RECORDS SUMMARY | 2025-06-26 14:54 | XMS_ITS | Encounter Summary ---
Author Organization [employer] Address 75 [facility] 7 [place] [address] Care Team Providers Care [place] Name Role Phone Mary Carmen Mckeon MD Primary Care Provider +1- [phone] Suly Mendoza PharmD Unavailable Quiana Keene Unavailable Sintia Petty Unavailable Kimmie Zamora MD Unavailable Reason for Visit * Reason Onset Date Comments Med Refill 04/05/2025 Encounter Details Date Type Department Care Team (Late st Contact Info) Description 04/05/2025 Telephone [facility] MEDICINE 230 [place], [place] [phone] Mary Carmen Mckeon MD 230 [place], [place] [phone] Med Refill Social History Tobacco Use Types [...] encounter Miscellaneous Notes * Telephone Encounter - Brad Yepez - 04/05/2025 2:58 PM EDT TC from pt requesting medication refill. Medications needing refill : hydrOXYzine pamoate (Vistaril) 25 MG capsule To be sent to: [employer] - [place], [place] - [address] [place] [address] (Pharmacy) documented in this encounter Plan of Treatment Upcoming Encounters Date Type Department Care Team (Late st Contact Info) Description 08/16/2025 10:15 AM EDT Office Visit [facility] MEDICINE 230 [place] [address] Mary Carmen Mckeon MD 230 [place], [place] [phone] documented as of this encounter Goals Goal Patient Goal Type Associated Problems Recent Progress Patient-Stated? Author Blood Pressure < 140/90 Blood Pressure 137/79( 025 10:49 AM EST) No Suly Yin PharmSophy Record your blood pressure once per day Blood Pressure No Suly Yin PharmD documented as of this encounter Visit Diagnoses Not on filedocumented in this encounter Additional Health Concerns Assessment Noted Time PHQ-9 Depression Total Score: 10 025 1:27 PM EST documented as of this encounter Care Teams [place] Relationship Specialty Start Date End Date Mary Carmen Mckeon MD 230 [place] [address] PCP - General Family Medicine 10/04/18 Suly Mendoza PharmD 230 [place] [address] Pharmacist Internal Medicine 08/17/24 Quiana Keene [address] Plastic Surgery 01/06/25 Sintia Petty [address] [facility] [address] [place] [address] Pain Medicine 03/28/25 Kimmie Zamora MD [address] [place] [address] Sleep Medicine 03/29/25 Addison Araujo GARAGE SUPERVISOR Cardiology 11/24/24 Jeanie Day PA-C Vascular Surgery 04/21/25 documented as of this encounter
--- OUTSIDE RECORDS SUMMARY | 2025-06-26 14:54 | XMS_ITS | Encounter Summary ---
Author Organization [employer] Address 75 [facility] 7 [place] [address] Care Team Providers Care Public Health Analyst Name Role Phone Mary Carmen Mckeon MD Primary Care Provider Suly Mendoza PharmD Unavailable Quiana Keene Unavailable Sintia Petty Unavailable Kimmie Zamora MD Unavailable Reason for Visit * Reason Comments Med Refill Encounter Details Date Type Department Care Team (Late st Contact Info) Description 07/16/2023 Refill [facility] MEDICINE [address] [place] [address] Massiel Orourke MD 230 [place], [place] [phone] Pain Social History Tobacco Use Types Packs/Day [...] 10:15 AM EDT Office Visit [facility] MEDICINE [address] [place] [address] Mary Carmen Mckeon MD 230 [place] [address] documented as of this encounter Visit Diagnoses Diagnosis Pain Generalized pain documented in this encounter Additional Health Concerns Assessment Noted Time PHQ-9 Depression Total Score: 0 05/21/20 9:36 AM EDT documented as of this encounter Care Teams Public Health Analyst Relationship Specialty Start Date End Date Mary Carmen Mckeon MD 230 [place] [address] PCP - General Family Medicine 10/04/18 Suly Mendoza PharmD 230 [place] [address] Pharmacist Internal Medicine 08/17/24 Quiana Keene [address] - [address] [place] [address] Plastic Surgery 01/06/25 Sintia Petty [address] [place] [address] Pain Medicine 03/28/25 Kimmie Zamora MD [address] [place] [address] Sleep Medicine 03/29/25 Addison Araujo PHYSICAL PLANT MANAGER Cardiology 11/24/24 Jeanie Day PA-C Vascular Surgery 04/21/25 documented as of this encounter
--- OUTSIDE RECORDS SUMMARY | 2025-06-26 14:55 | XMS_ITS | Encounter Summary ---
Author Organization [employer] Address 75 [facility] 7 [place] [address] Care Team Providers Care Animal Treatment Investigator Name Role Phone Mary Carmen Mckeon MD Primary Care Provider Suly Mendoza PharmD Unavailable Quiana Keene Unavailable Sintia Petty Unavailable Kimmie Zamora MD Unavailable Reason for Visit * Reason Comments Med Refill Encounter Details Date Type Department Care Team (Late st Contact Info) Description 03/30/2024 Refill [facility] CHC MED & PEDS [address] [place], [place] [phone] Mary Carmen Mckeon MD [address] [place], [place] [phone] Pain Social History Tobacco Use Types Packs/Day [...] Description 08/16/2025 10:15 AM EDT Office Visit [facility] MEDICINE [address] [place] [phone] Mary Carmen Mckeon MD [address] [place] [address] documented as of this encounter Visit Diagnoses Diagnosis Pain Generalized pain documented in this encounter Additional Health Concerns Assessment Noted Time PHQ-9 Depression Total Score: 0 05/21/20 23 9:36 AM EDT documented as of this encounter Care Teams Animal Treatment Investigator Relationship Specialty Start Date End Date Mary Carmen Mckeon MD [address] [place] [address] PCP - General Family Medicine 10/04/18 Suly Mendoza PharmD [address] [place] [address] Pharmacist Internal Medicine 08/17/24 Quiana Keene [address] [place] [address], [place] Plastic Surgery 01/06/[address] [place] [address] Pain Medicine 03/28/25 Kimmie Zamora MD [address] [place] [address] Sleep Medicine 03/29/25 Addison Araujo SCHOOL CROSSING GUARD Cardiology 11/24/24 Jeanie Day PA-C Vascular Surgery 04/21/25 documented as of this encounter
--- OUTSIDE RECORDS SUMMARY | 2025-06-26 14:55 | XMS_ITS | Encounter Summary ---
Author Organization [employer] Address 75 [facility] 7 [place] [address] Care Team Providers Care Ethernet Network Architect Name Role Phone Mary Carmen Mckeon MD Primary Care Provider [phone] Suly Mendoza PharmD Unavailable [phone] Quiana Keene Unavailable Sintia Petty Unavailable Kimmie Zamora MD Unavailable Reason for Visit * Reason Onset Date Comments Durable Medical Equipment 05/31/2024 Encounter Details Date Type Department Care Team (Late st Contact Info) Description 05/31/2024 Telephone [facility] MED[facility] [address] [place], [place] [phone] Mary Carmen Mckeon MD [address] [place], [place] [phone] Durable Medical Equipment Social History Tobacco Use Types Packs/Day Years [...] encounter Miscellaneous Notes * Telephone Encounter - Aldair Davis - 05/31/2024 2:37 PM EDT Tc from patient calling to report the script for the recliner lift chair was denied do to the provider did not send the office note to [facility] documented in this encounter Plan of Treatment Upcoming Encounters Date Type Department Care Team (Late st Contact Info) Description 08/16/2025 10:15 AM EDT Office Visit [facility] MED[facility]INE [address] [place] [address] Mary Carmen Mckeon MD [address] [place] [address] documented as of this encounter Goals Goal [...] documented as of this encounter Care Teams Ethernet Network Architect Relationship Specialty Start Date End Date Mary Carmen Mckeon MD 230 [place] [address] PCP - General Family Medicine 10/04/18 Suly Mendoza PharmD 230 [place] [address] Pharmacist Internal Medicine 08/17/24 Quiana Keene [address] Plastic Surgery 01/06/25 Sintia Petty [address] [place] [address] [address] [place] [address] Pain Medicine 03/28/25 Kimmie Zamora MD [address] [place] [address] Sleep Medicine 03/29/25 Addison Araujo MANAGER OF HOSPITAL Cardiology 11/24/24 Jeanie Day PA-C Vascular Surgery 04/21/25 documented as of this encounter
--- OUTSIDE RECORDS SUMMARY | 2025-06-26 14:55 | XMS_ITS | Encounter Summary ---
Author Organization [facility] Address [address] [facility] [address] [place] [address] Phone Care Team Providers Care Kiln Loader Name Role Phone Lorenzo Roman MD Unavailable [phone] Griselda Thomas MD Primary Care Provider Gonsalo Fontenot MD Unavailable [phone] Mary Carmen Mckeon MD Primary Care Provi daphnie Encounter Details Date Type Department Care Team (Late st Contact Info) Description 05/18/2018 Procedure Pass [facility] Endoscopy Admitting Dept Virtual Department [address] [place] [phone] Social History Tobacco Use Types Packs/Day Years Used Date Smoking Tobacco: Never Assessed Sex and Gender Information Value Date Recorded Sex Assigned at Not on file Legal Sex Male 9:41 PM EDT Gender Identity Not on file Sexual Orientation Not on file documented as of this encounter Plan of Treatment Not on file documented as of this encounter Visit Diagnoses Not on filedocumented in this encounter Care Teams Kiln Loader Relationship Specialty Start Date End Date Griselda Thomas MD [address] [place] [address] [place] [phone] PCP - General Internal Medicine 05/06/18 09/13/18 Mary Carmen Mckeon MD [address] [place] [address] [place], [place] [phone] PCP - General Family Medicine 09/14/18 Lorenzo Roman MD [address] [place] [address] [email or web address] Assigned Provider 03/06/18 07/03/18 Gonsalo Fontenot MD [address] [place] [phone] [email or web address] Insurance Assigned Provider 07/03/18 08/07/18 documented as of this encounter Additional Source Comments The information contained in this document represents components of the legal health record. It is not the complete legal health record.[facility]
== END 2025-06-26 13:38 | disposition home or self-care (01) ==
LOC: HO.US 13:37
PROVIDERS: PCP Family Medicine; Visit Provider Physician Assistant Surgical
DX: I83.11 Varicose veins of right lower extremity with inflammation (principal); I83.12 Varicose veins of left lower extremity with inflammation
CPT/HCPCS: 93970

== ENCOUNTER → 2025-06-26 13:41 | Outpatient (BNV) | payer OTHER, SELFPAY | PROVIDERS: PCP Family Medicine; Visit Provider Radiology Diagnostic Radiology | DX: I83.11 Varicose veins of right lower extremity with inflammation (principal) | CPT/HCPCS: 93970 ==

== ENCOUNTER 2025-07-04 12:58 | Outpatient (AMB) | payer OTHER, SELFPAY ==
[2025-07-04 13:33] VITALS: BMI 60.0
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
--- OUTSIDE RECORDS SUMMARY | 2025-07-04 14:17 | XMS_ITS | Encounter Summary ---
Author Organization [employer] Address 75 [facility] 7 [place] [address] Care Team Providers Care Automatic Serging Machine Operator Name Role Phone Mary Carmen Mckeon MD Primary Care Provider Suly Mendoza PharmD Unavailable Quiana Keene Unavailable Sintia Petty Unavailable Kimmie Zamora MD Unavailable Reason for Visit * Reason Comments Med Refill Encounter Details Date Type Department Care Team (Late st Contact Info) Description 10/03/[address] [facility] MEDICINE [address] [place], [place] [phone] Suly Mendoza, PharmD 230 [place], [place] [phone] Dyslipidemia; Hypertension, unspecified type Social History Tobacco [...] Description 08/16/2025 10:15 AM EDT Office Visit [facility] MEDICINE [address] [place] [address] Mary Carmen Mckeon MD [address] [place] [address] [phone] documented as of this encounter Goals Goal [...] documented as of this encounter Care Teams Automatic Serging Machine Operator Relationship Specialty Start Date End Date Mary Carmen Mckeon MD [address] [place] [address] PCP - General Family Medicine 10/04/18 Suly Mendoza PharmD 230 [place] [address] Pharmacist Internal Medicine 08/17/24 Quiana Keene [address] - [address] [place] [address] Plastic Surgery 01/06/25 Sintia Petty [address] [place] [address] Pain Medicine 03/28/25 Kimmie Zamora MD [address] [place] [address] Sleep Medicine 03/29/25 Addison Araujo COUNCILOR Cardiology 11/24/24 Jeanie Day PA-C Vascular Surgery 04/21/25 documented as of this encounter
--- OUTSIDE RECORDS SUMMARY | 2025-07-04 14:17 | XMS_ITS | Encounter Summary ---
Author Organization [employer] Address 75 [facility] 7t [place] [address] Care Team Providers Care Supervising Producer Name Role Phone Mary Carmen Mckeon MD Primary Care Provider Suly Mendoza PharmD Unavailable Quiana Keene Unavailable Sintia Petty Unavailable Kimmie Zamora MD Unavailable Reason for Visit * Reason Comments Med Refill Encounter Details Date Type Department Care Team (Late st Contact Info) Description 12/09/2024 Refill [facility] MEDICINE 230 [place], [place] [phone] Mary Carmen Mckeon MD [address] [place], [place] [phone] Class 3 severe obesity due to excess [...] 10:15 AM EDT Office Visit [facility] MEDICINE [address] [place] [address] Mary Carmen Mckeon MD [address] [place] [address] documented as of this encounter Goals Goal [...] documented as of this encounter Care Teams Supervising Producer Relationship Specialty Start Date End Date Mary Carmen Mckeon MD [address] [place] [address] PCP - General Family Medicine 10/04/18 Suly Mendoza PharmD [address] [place] [address] Pharmacist Internal Medicine 08/17/24 Quiana Keene [address] Plastic Surgery 01/06/25 Sintia Petty [address] [place] [address] Drive [address] [place] [address] Pain Medicine 03/28/25 Kimmie Zamora MD [address] [place] [address] Sleep Medicine 03/29/25 Addison Araujo MEAT AND SEAFOOD MANAGER Cardiology 11/24/24 Jeanie Day PA-C Vascular Surgery 04/21/25 documented as of this encounter
--- OUTSIDE RECORDS SUMMARY | 2025-07-04 14:17 | XMS_ITS | Encounter Summary ---
Author Organization [employer] Address 75 [facility] 7 [place] [address] Care Team Providers Care Network Cabler Name Role Phone Mary Carmen Mckeon MD Primary Care Provider Suly Mendoza PharmD Unavailable Quiana Keene Unavailable Sintia Petty Unavailable Kimmie Zamora MD Unavailable Reason for Visit * Reason Comments Med Refill Encounter Details Date Type Department Care Team (Late st Contact Info) Description 05/21/2024 Refill [facility] CHC MED & PEDS [address] [place], [place] [phone] Mary Carmen Mckeon MD [address] [place], [place] [phone] Candidiasis; Pain Social History Tobacco Use Types [...] 10:15 AM EDT Office Visit [facility] MEDICINE [address] [place] [address] Mary Carmen Mckeon MD [address] [place] [address] documented as of this encounter Visit Diagnoses Diagnosis Candidiasis Pain Generalized pain documented in this encounter Additional Health Concerns Assessment Noted Time PHQ-9 Depression Total Score: 0 05/21/20 23 9:36 AM EDT documented as of this encounter Care Teams Network Cabler Relationship Specialty Start Date End Date Mary Carmen Mckeon MD [address] [place] [address] PCP - General Family Medicine 10/04/18 Suly Mendoza, JamaD [address] [place] [address] Pharmacist Internal Medicine 08/17/24 Quiana Keene [address] [place], [place] Plastic Surgery 01/06/[address] [facility] [facility] [address] [place] [address] Pain Medicine 03/28/25 Kimmie Zamora MD [address] [place] [address] Sleep Medicine 03/29/25 Addison Araujo COPIER TECHNICIAN Cardiology 11/24/24 Jeanie Day PA-C Vascular Surgery 04/21/25 documented as of this encounter
--- OUTSIDE RECORDS SUMMARY | 2025-07-04 14:17 | XMS_ITS | Encounter Summary ---
Author Organization [employer] Address 75 [facility] 7t [place] [address] Care Team Providers Care Phlebotomy Director Name Role Phone Mary Carmen Mckeon MD Primary Care Provider Suly Mendoza PharmD Unavailable Quiana Keene Unavailable Sintia Petty Unavailable Kimmie Zamora MD Unavailable Reason for Visit * Reason Comments Med Refill Encounter Details Date Type Department Care Team (Late st Contact Info) Description 06/09/2025 Refill [facility] MEDICINE 230 [place], [place] [phone] Girma Gutiérrez MD 230 [place], [place] [phone] Candidiasis Social History Tobacco Use Types Packs/Day [...] the past 12 months, has t he [employer], gas, oil or water company threatened to [...] Description 08/16/2025 10:15 AM EDT Office Visit [facility] MEDICINE [address] [place] [address] Mary Carmen Mckeon MD [address] [place] [address] documented as of this encounter Goals Goal [...] documented as of this encounter Care Teams Phlebotomy Director Relationship Specialty Start Date End Date Mary Carmen Mckeon MD [address] [place] [address] [place] [address] PCP - General Family Medicine 10/04/18 Suly Mendoza PharmD [address] [place] [address] Pharmacist Internal Medicine 08/17/24 Quiana Keene [address] - [address] [place] [address] Plastic Surgery 01/06/25 Sintia Petty [address] [place] [address] Drive [address] [place] [address] Pain Medicine 03/28/25 Kimmie Zamora MD [address] [place] [address] Sleep Medicine 03/29/25 Addison Araujo TOLL COLLECTOR SUPERVISOR Cardiology 11/24/24 Jeanie Day PA-C Vascular Surgery 04/21/25 documented as of this encounter
--- OUTSIDE RECORDS SUMMARY | 2025-07-04 14:17 | XMS_ITS | Encounter Summary ---
Author Organization [employer] Address 75 [facility] 7 [place] [address] Care Team Providers Care U.S. Commissioner Name Role Phone Mary Carmen Mckeon MD Primary Care Provider Suly Mendoza PharmD Unavailable Quiana Keene Unavailable Sintia Petty Unavailable Kimmie Zamora MD Unavailable Encounter Details Date Type Department Care Team (Late st Contact Info) Description 01/15/2024 Orders Only [facility] MEDICINE [address] [place], [place] [phone] Mary Carmen Mckeon MD 230 [place], [place] [phone] History of tobacco use (Primary Dx) Social [...] Description 08/16/2025 10:15 AM EDT Office Visit [facility] MEDICINE [address] [place] [address] Mary Carmen Mckeon MD [address] [place] [address] documented as of this encounter Visit Diagnoses Diagnosis History of tobacco use- Primary Personal history of tobacco use, presenting hazards to health documented in this encounter Additional Health Concerns Assessment Noted Time PHQ-9 Depression Total Score: 0 05/21/20 23 9:36 AM EDT documented as of this encounter Care Teams U.[place]. Commissioner Relationship Specialty Start Date End Date Mary Carmen Mckeon MD [address] [place] [address] PCP - General Family Medicine 10/04/18 Suly Mendoza, Jennifer [address] [place] [address] Pharmacist Internal Medicine 08/17/24 Quiana Keene [address] [facility] [place] [place] Pl[facility] Surgery 01/06/25 Sintia Petty [address] [place] [address] Drive [address] [place] [address] Pain Medicine 03/28/25 Kimmie Zamora MD [address] [place] [address] Sleep Medicine 03/29/25 Addison Araujo CASING WRINGER OPERATOR Cardiology 11/24/24 Jeanie Day PA-C Vascular Surgery 04/21/25 documented as of this encounter
--- OUTSIDE RECORDS SUMMARY | 2025-07-04 14:17 | XMS_ITS | Encounter Summary ---
Author Organization [employer] Address [address] [facility] 7 [place] [address] Care Team Providers Care Well Site Drilling Engineer Name Role Phone Mary Carmen Mckeon MD Primary Care Provider [phone] Suly Mendoza PharmD Unavailable Quiana Keene Unavailable Sintia Petty Unavailable Kimmie Zamora MD Unavailable Reason for Visit * Reason Onset Date Comments Med Refill 04/05/2025 Encounter Details Date Type Department Care Team (Late st Contact Info) Description 04/05/2025 Telephone [facility]INE [address] [place], [place] [phone] Mary Carmen Mckeon MD [address] [place], [place] [phone] Med Refill Social History Tobacco Use Types [...] 25 MG capsule To be sent to: [facility] - [place], [place] - [address] [place] [address] (Pharmacy) documented in this encounter Plan of Treatment Upcoming Encounters Date Type Department Care Team (Late st Contact Info) Description 08/16/2025 10:15 AM EDT Office Visit [facility] [address] [place] [address] Mary Carmen Mckeon MD [address] [place], [place] [phone] documented as of this encounter Goals Goal Patient Goal Type Associated Problems Recent Progress Patient-Stated? Author Blood Pressure < 140/90 Blood Pressure 137/79( 025 10:49 AM EST) No Suyl Yin PharmSophy Record your blood pressure once per day Blood Pressure No Suly Yin PharmD documented as of this encounter Visit Diagnoses Not on filedocumented in this encounter Additional Health Concerns Assessment Noted Time PHQ-9 Depression Total Score: 10 025 1:27 PM EST documented as of this encounter Care Teams Well Site Drilling Engineer Relationship Specialty Start Date End Date Mary Carmen Mckeon MD [address] [place] [address] PCP - General Family Medicine 10/04/18 Suly Mendoza PharmD [address] [place] [address] Pharmacist Internal Medicine 08/17/24 Quiana Keene [address] Plastic Surgery 01/06/25 Sintia Petty [address] [place] [address] Pain Medicine 03/28/25 Kimmie Zamora MD [address] [place] [id number] Sleep Medicine 03/29/25 Addison Araujo FLEXOGRAPHIC PRINTING MACHINIST Cardiology 11/24/24 Jeanie Day PA-C Vascular Surgery 04/21/25 documented as of this encounter
--- OUTSIDE RECORDS SUMMARY | 2025-07-04 14:17 | XMS_ITS | Encounter Summary ---
Author Organization [employer] Address [address] [facility] 7 [place] [address] Care Team Providers Care Marketing Analyst Name Role Phone Mary Carmen Mckeon MD Primary Care Provider [phone]- [phone] Suly Mendoza PharmD Unavailable [phone] Quiana Keene Unavailable Sintia Petty Unavailable Kimmie Zamora MD Unavailable Reason for Visit * Reason Onset Date Comments Appointment Request 09/15/2024 Encounter Details Date Type Department Care Team (Late st Contact Info) Description 09/15/2024 Telephone [facility] MED[facility]INE [address] [place] [address] Mary Carmen Mckeon MD [address] [place], [place] [phone] Appointment Request Social History Tobacco Use Types [...] her appt from 09/14. Contact pt at [phone] documented in this encounter Plan of Treatment Upcoming Encounters Date Type Department Care Team (Late st Contact Info) Description 08/16/2025 10:15 AM EDT Office Visit [facility] [address] [place] [address] Mary Carmen Mckeon MD [address] [place] [address] documented as of this encounter Goals Goal [...] documented as of this encounter Care Teams Marketing Analyst Relationship Specialty Start Date End Date Mary Carmen Mckeon MD [address] [place] [address] PCP - General Family Medicine 10/04/18 Suly Mendoza PharmD [address] [place] [address] Pharmacist Internal Medicine 08/17/24 Quiana Keene [address] Plastic Surgery 01/06/25 Sintia Petty [address] [place] [address] Pain Medicine 03/28/25 Kimmie Zamora MD [address] [place] [address] Sleep Medicine 03/29/25 Addison Araujo WOOD EXPERIMENTAL MECHANIC Cardiology 11/24/24 Jeanie Day PA-C Vascular Surgery 04/21/25 documented as of this encounter
--- OUTSIDE RECORDS SUMMARY | 2025-07-04 14:17 | XMS_ITS | Encounter Summary ---
Author Organization [employer] Address [address] [facility] 7t [place] [address] Care Team Providers Care Assistant Professor Of Life Sciences Name Role Phone Mary Carmen Mckeon MD Primary Care Provider [phone]- [phone] Suly Mendoza PharmD Unavailable [phone] Quiana Keene Unavailable Sintia Petty Unavailable Kimmie Zamora MD Unavailable Encounter Details Date Type Department Care Team (Late st Contact Info) Description 10/20/2022 Orders Only [facility] [address] [place], [place] [phone] Sintia Izaguirre LPN Social History Tobacco Use [...] AM EDT Office Visit [facility] [address] [place], [place] [phone] Mary Carmen Mckeon MD [address] [place], [place] [phone] documented as of this encounter Visit Diagnoses Not on filedocumented in this encounter Care Teams Assistant Professor Of Life Sciences Relationship Specialty Start Date End Date Mary Carmen Mckeon MD [address] [place] [address] PCP - General Family Medicine 10/04/18 Suly Mendoza PharmD [address] [place] [address] Pharmacist Internal Medicine 08/17/24 Quiana Keene [address] Plastic Surgery 01/06/25 Sintia Petty [address] [place] [address] Drive [address] [place] [address] Pain Medicine 03/28/25 Kimmie Zamora MD [address] [place] [address] Sleep Medicine 03/29/25 Addison Araujo CERTIFIED PHLEBOTOMY TECHNICIAN Cardiology 11/24/24 Jeanie Day PA-C Vascular Surgery 04/21/25 documented as of this encounter
--- OUTSIDE RECORDS SUMMARY | 2025-07-04 14:17 | XMS_ITS | Clinical Summary ---
Author Organization [employer] Address [address] [facility] [address] [place] [address] Care Team Providers Care Legal Transcriber Name Role Phone Mary Carmen Mckeon MD Primary Care Provider Suly Mendoza PharmD Unavailable Quiana Keene Unavailable Sintia Petty Unavailable Kimmie Zamora MD Unavailable Allergies No known active allergies [...] (BULK) 2 mL 025 Active nystatin (Mycostatin) 258455 UNIT/GM powderIndications :Candidiasis APPLY TOPICALLY TWO TIMES [...] tablet 11 024 2024 Discontinued nystatin (Mycostatin) 781954 UNIT/GM powderIndications :Candidiasis APPLY TOPICALLY TWO TIMES [...] migh t be different from the original. [facility] Cutter: Caity, member services number [phone], provider services line, , option 4 Gold And Silver Assayer Agency: [place] Problem Noted Date Diagnosed Date Obstructive sleep apnea 04/11/2025 Overview (06/14/2025): Followed by Dr. Kimmie Zamora MD [facility]. Home sleep study [...] the day and taking naps. -referred to digester operator helper 11/24/24, have not heard 03/10/25 -referred to sleep medicine. 11/24/24, Has appt. 03/22/25. Assessment & Plan (03/10/2025 11:12 AM EDT): Has had some episodes of wheezing on top of snoring and additionally feeling tired/fatigued in the day and taking naps. -referred to digester operator helper 11/24/24, have not heard 03/10/25 -referred to sleep medicine. 11/24/24, Has appt. 03/22/25. Assessment & Plan (11/24/2024 11:06 AM EST): Has had some episodes of wheezing on top of snoring and additionally feeling tired/fatigued in the day and taking naps. -referred to digester operator helper 11/24/24 -referred to sleep medicine. 11/24/24 SOB (shortness of breath) 11/24/2024 Overview (04/11/2025): Has had some episodes of wheezing on top of snoring and additionally feeling tired/fatigued in the day and taking naps. -referred to digester operator helper 11/24/24 -Seen by Kimmie Zamora MD at [facility] 03/22/25, home sleep study ordered and CPAP likely to be started Followed by [facility]. Home sleep study 04/06/25 diagnosed severe MIKE overnight titration study recommended. Assessment & Plan (11/24/2024 11:06 AM EST): Has had some episodes of wheezing on top of snoring and additionally feeling tired/fatigued in the day and taking naps. -referred to digester operator helper 11/24/24 -referred to sleep medicine. 11/24/24 Daytime somnolence 11/24/2024 Overview (06/14/2025): Has had some episodes of wheezing on top of snoring and additionally feeling tired/fatigued in the day and taking naps. -referred to digester operator helper 11/24/24 -referred to sleep medicine. 11/24/24 -has appt scheduled. Followed by [facility]. Home sleep study 04/06/25 diagnosed severe MIKE overnight titration study recommended. Assessment & Plan (01/06/2025 5:36 PM EST): Has had some episodes of wheezing on top of snoring and additionally feeling tired/fatigued in the day and taking naps. -referred to digester operator helper 11/24/24 -referred to sleep medicine. 11/24/24 -has appt scheduled. Assessment & Plan (11/24/2024 11:06 AM EST): Has had some episodes of wheezing on top of snoring and additionally feeling tired/fatigued in the day and taking naps. -referred to digester operator helper 11/24/24 -referred to sleep medicine. 11/24/24 Moderate episode of recurrent major depressive d isorder 11/24/2024 Overview (03/10/2025): Denies suicidial or homacidial ideation. Continue current medications. Clark snot currently see a therapist interested in seeing one. -referred to behavioral health 11/24/24 -Has appt 03/16/25 Assessment & Plan (03/10/2025 11:14 AM EDT): Denies suicidial or homacidial ideation. Continue current medications. Eduardo melgar currently see a therapist interested in seeing one. -referred to behavioral health 11/24/24 -Has appt 03/16/25 Assessment & Plan (11/24/2024 11:32 AM EST): Denies suicidial or homacidial ideation. Continue current medications. Eduardo melgar currently see a therapist interested in seeing [...] -dental encouraged to make an appointment at [facility] 05/21/23 -health care proxy given and filed 05/10/24 Assessment & Plan (05/10/2024 11:07 AM EDT): -next physical exam due after 05/10/2025. -eye care: PT given list to call 05/21/2023 -dental encouraged to make an appointment at [facility] 05/21/23. -health care proxy given and filed 05/10/24 Assessment & Plan (05/21/2023 10:12 AM EDT): -next physical exam due after 05/21/2024. -eye care: Pt given list to call 05/21/23. -dental encouraged to make an appointment at [facility] 05/21/23. Difficulty walking 01/09/2023 Overview (01/09/2023): She [...] aid 01/09/2023 Lower extremity edema 01/09/2023 Overview (06/27/2025): Require leg elevation as much as possible [...] ordering venous insufficiency testing with the patient. -Venous US 06/21/25 US/US venous duplex LE BI IMPRESSION: Right: Venous incompetence with a greater saphenous vein reflux at the mid thigh Left: No venous reflux is demonstrated. Assessment & Plan (11/24/2024 11:14 AM EST): [...] stopped smoking x2 years, waiting to see rug repairer to get approved to reschedule breast surgery. -pt is waiting for cardiac clearance prior to breast augmentation surgery. -reports she saw a rug repairer, Dr Araujo and had an echo but [...] stopped smoking x2 years, waiting to see rug repairer to get approved to reschedule breast surgery. -pt is waiting for cardiac clearance prior to breast augmentation surgery. -reports she saw a rug repairer, Dr Araujo and had an echo but [...] stopped smoking x2 years, waiting to see rug repairer to get approved to reschedule breast surgery. [...] stopped smoking x2 years, waiting to see rug repairer to get approved to reschedule breast surgery. [...] modifications -Continue current medications -Currently enrolled in [facility] started valsartan 40mg once daily 10/16/24 for borderline elevated BP and microalbuminuria Assessment & Plan (11/24/2024 11:08 AM EST): -Blood pressure is at goal -Continue lifestyle modifications -Continue current medications -Currently enrolled in [facility] started valsartan 40mg once daily 08/17/24 for borderline elevated BP and microalbuminuria Assessment & Plan (05/10/2024 11:23 AM EDT): -Blood pressure is not at goal, slightly elevated and repeat was lower but still above goal -Continue lifestyle modifications -Continue current medications -Referred to [facility] 05/10/24 -Will arrange for home BP monitor [...] the day and taking naps. -referred to digester operator helper 11/24/24 -referred to sleep medicine. 11/24/24 Assessment & Plan (11/24/2024 11:06 AM EST): Has had some episodes of wheezing on top of snoring and additionally feeling tired/fatigued in the day and taking naps. -referred to digester operator helper 11/24/24 -referred to sleep medicine. 11/24/24 Encounter [...] organization. Date Type Department Care Team Description 07/01/2025 Refill [facility] [address] [place] [address] Mary Carmen Mckeon MD Class 3 severe obesity due to excess calories with serious comorbidity and body mass index (BMI) of 60.0 to 69.9 in adult 06/26/2025 Orders Only [facility] External Provider, [facility] Lower extremity edema (Primary Dx) 06/22/2025 Refill [facility] [address] [place] [address] Mary Carmen Mckeon MD Constipation, unspecified constipation type 06/13/2025 Telephone [facility] [address] [place] [address] Mary Carmen Mckeon MD CHART PREP 06/09/2025 Refill [facility] [address] [place] [address] Girma Gutiérrez MD Candidiasis 06/05/2025 Refill [facility] [address] [place] [address] Girma Gutiérrez MD Candidiasis 2025 Refill [facility] [address] [place] [address] Mary Carmen Mckeon MD Class 3 severe obesity due to excess calories with serious comorbidity and body mass index (BMI) of 60.0 to 69.9 in adult; Moderate episode of recurrent major depressive disorder (CMS/HCC); Candidiasis; Pain 04/29/2025 Refill [facility] [address] [place] [address] Mary Carmen Mckeon MD Class 3 severe obesity due to excess calories with serious comorbidity and body mass index (BMI) of 60.0 to 69.9 in adult 04/14/2025 Refill [facility] [address] [place] [address] Mary Carmen Mckeon MD Gender dysphoria 04/10/2025 Refill [facility] [address] [place] [address] Mary Carmen Mckeon MD Class 3 severe obesity due to excess calories with serious comorbidity and body mass index (BMI) of 60.0 to 69.9 in adult 04/05/2025 Telephone [facility] [address] [place], [place] [phone] Mary Carmen Mckeon MD Med Refill from [...] Description 08/16/2025 10:15 AM EDT Office Visit [facility] [address] [place] [address] Mary Carmen Mckeon MD [address] [place] [address] Health Maintenance Due Date Last Done Comments [...] once per day Blood Pressure No Terrys-Gambl e, Suly, PharmD Procedures Procedure Name Priority Date/Time Associated Diagnosis Comments VASC US LOWER EXTREMITY VENOUS DUPLEX BILATERAL Routine 06/26/2025 1:50 PM EDT HEMOGLOBIN A1C Routine 11/24/2024 12:10 PM EST [...] ([place] DPH) Routine 05/21/2023 10:58 AM EDT HEPATITIS C ANTIBODY Routine 09/09/2018 from Last 3 Months or Most Recently Relevant to Health Maintenance Results * [facility] US Lower Extremity Venous Duplex Bilateral (06/26/2025 1:50 PM EDT) 06/26/2025 1:50 PM EDT Narrative [facility] - 06/26/2025 3:08 PM EDT [address] [address] Ultrasound Report Signed Patient: Yokasta Cardenas MR#: [id number] : 1965 Acct:[id number] Age/Sex: 60 / M ADM Date: 06/26/25 Loc: . Attending Dr: Jeanie Day PA-C Ordering Physician: Jeanie Day PA-C Date of Service: 06/26/25 Procedure(s): US venous duplex LE Accession Number(s): [id number] cc: Mary Carmen Mckeon MD; Jeanie Day PA-C EXAMINATION: US LOWER EXTREMITY VENOUS (REFLUX EXAM), BILATERAL CLINICAL INFORMATION: Varicose veins of the right lower extremity with inflammation COMPARISON: None. TECHNIQUE: Color flow triplex imaging and compression Doppler was performed to evaluate both the deep and the superficial systems bilaterally. To evaluate the superficial system, the examination was performed in the upright position. Color-flow Doppler ultrasound and compression ultrasound were utilized. In addition, maneuvers were utilized to demonstrate reflux. FINDINGS: 1. DEEP VENOUS ULTRASOUND OF THE RIGHT LOWER EXTREMITY: Common Femoral Vein: Compressible, normal respiratory variation and augmented flow. Femoral Vein: Compressible, normal color flow and augmentation. Popliteal Vein: Compressible, normal augmentation. Deep Reflux: There is no evidence of reflux in the deep system in either the common femoral vein, superficial femoral or the popliteal vein. 2. SUPERFICIAL ULTRASOUND WITH DOPPLER OF RIGHT LOWER EXTREMITY: GREAT SAPHENOUS VEIN: Saphenofemoral Junction: 0.6 cm; Reflux: 0 ms Proximal Thigh: 0.4 cm; Reflux: 0 ms Mid Thigh: 0.4 cm; Reflux: 1300 ms Distal Thigh: 0.4 cm; Reflux: 0 ms At Knee: 0.3 cm; Reflux: 0 ms Below Knee/Proximal Calf: 0.3 cm; Reflux: 0 ms Mid Calf: 0.3 cm; Reflux: 0 ms Ankle/Distal Calf: 0.4 cm; Reflux: 0 ms Medial accessory GREAT SAPHENOUS VEIN: Saphenofemoral Junction: 0.3 cm; Reflux: 0 ms Mid Thigh: 0.2 cm; Reflux: 0 ms SMALL SAPHENOUS VEIN: Drainage: Thigh Extension Saphenopopliteal Junction: 0.2 cm; Reflux: 0 ms Mid calf: 0.2 cm; Reflux: 0 ms Distal: 0.2 cm; Reflux: 0 ms VEIN OF GIACOMINI: Size: NA cm Reflux: NA ms PERFORATORS: Location: Accessory saphenous vein, proximal thigh Size: 0.3 cm Reflux: 0 ms VARICOSITIES > 3mm: Location: None Imaged 3. DEEP VENOUS ULTRASOUND OF THE LEFT LOWER EXTREMITY: Common Femoral Vein: Compressible, normal respiratory variation and augmented flow. Femoral Vein: Compressible, normal color flow and augmentation. Popliteal Vein: Compressible, normal augmentation. Deep Reflux: There is no evidence of reflux in the deep system in either the common femoral vein, superficial femoral or the popliteal vein. 4. SUPERFICIAL ULTRASOUND WITH DOPPLER OF LEFT LOWER EXTREMITY: GREAT SAPHENOUS VEIN: Saphenofemoral Junction: 0.6 cm; Reflux: 0 ms Proximal Thigh: 0.5 cm; Reflux: 0 ms Mid Thigh: 0.4 cm; Reflux: 0 ms Distal Thigh: 0.3 cm; Reflux: 0 ms At Knee: 0.4 cm; Reflux: 0 ms Below Knee/Proximl calf: 0.3 cm; Reflux: 0 ms Mid Calf: 0.2 cm; Reflux: 0 ms Distal Calf/Ankle: 0.3 cm; Reflux: 0 ms Lateral/Medial accessory GREAT SAPHENOUS VEIN: None imaged SMALL SAPHENOUS VEIN: Drainage: thigh extension Saphenopopliteal Junction: 0.2 cm; Reflux: 0 ms Mid calf: 0.1 cm; Reflux: 0 ms Distal calf: 0.2 cm; Reflux: 0 ms VEIN OF GIACOMINI: Size: NA Reflux: NA PERFORATORS: None imaged VARICOSITIES > 3mm: Location: None Imaged US/US venous duplex LE IMPRESSION: Right: Venous incompetence with a greater saphenous vein reflux at the mid thigh Left: No venous reflux is demonstrated. Electronically signed by: Schuyler Wheeler MD 06/26/2025 03:05 PM EDT Dictated By: Schuyler Wheeler MD Signed By: <Electronically signed by Schuyler Wheeler MD in OV> 06/26/25 1505 DD/ 1350 TD/TT: 06/26/25 1419 Counterintelligence Analyst: Procedure Note Donotuseinterpreter, Image - 06/26/[address] [address] Ultrasound Report Signed Patient: Yokasta Cardenas#: M [id number] : 1965Acct:[id number] Age/Sex: 60 / MADM Date: 06/26/25 Loc: .US Attending Dr: Jeanie Day PA-C Ordering Physician: Jeanie Day PA-C Date of Service: 06/26/25 Procedure(s): US venous duplex LE BI Accession Number(s): [id number] cc: Mary Carmen Mckeon MD; Jeanie Day PA-C EXAMINATION: US LOWER EXTREMITY VENOUS (REFLUX EXAM), BILATERAL CLINICAL INFORMATION: Varicose veins of the right lower extremity with inflammation COMPARISON: None. TECHNIQUE: Color flow triplex imaging and compression Doppler was performed to evaluate both the deep and the superficial systems bilaterally. To evaluate the superficial system, the examination was performed in the upright position. Color-flow Doppler ultrasound and compression ultrasound were utilized. In addition, maneuvers were utilized to demonstrate reflux. FINDINGS: 1. DEEP VENOUS ULTRASOUND OF THE RIGHT LOWER EXTREMITY: Common Femoral Vein: Compressible, normal respiratory variation and augmented flow. Femoral Vein: Compressible, normal color flow and augmentation. Popliteal Vein: Compressible, normal augmentation. Deep Reflux: There is no evidence of reflux in the deep system in either the common femoral vein, superficial femoral or the popliteal vein. 2. SUPERFICIAL ULTRASOUND WITH DOPPLER OF RIGHT LOWER EXTREMITY: GREAT SAPHENOUS VEIN: Saphenofemoral Junction: 0.6 cm; Reflux: 0 ms Proximal Thigh: 0.4 cm; Reflux: 0 ms Mid Thigh: 0.4 cm; Reflux: 1300 ms Distal Thigh: 0.4 cm; Reflux: 0 ms At Knee: 0.3 cm; Reflux: 0 ms Below Knee/Proximal Calf: 0.3 cm; Reflux: 0 ms Mid Calf: 0.3 cm; Reflux: 0 ms Ankle/Distal Calf: 0.4 cm; Reflux: 0 ms Medial accessory GREAT SAPHENOUS VEIN: Saphenofemoral Junction: 0.3 cm; Reflux: 0 ms Mid Thigh: 0.2 cm; Reflux: 0 ms SMALL SAPHENOUS VEIN: Drainage: Thigh Extension Saphenopopliteal Junction: 0.2 cm; Reflux: 0 ms Mid calf: 0.2 cm; Reflux: 0 ms Distal: 0.2 cm; Reflux: 0 ms VEIN OF GIACOMINI: Size: NA cm Reflux: NA ms PERFORATORS: Location: Accessory saphenous vein, proximal thigh Size: 0.3 cm Reflux: 0 ms VARICOSITIES > 3mm: Location: None Imaged 3. DEEP VENOUS ULTRASOUND OF THE LEFT LOWER EXTREMITY: Common Femoral Vein: Compressible, normal respiratory variation and augmented flow. Femoral Vein: Compressible, normal color flow and augmentation. Popliteal Vein: Compressible, normal augmentation. Deep Reflux: There is no evidence of reflux in the deep system in either the common femoral vein, superficial femoral or the popliteal vein. 4. SUPERFICIAL ULTRASOUND WITH DOPPLER OF LEFT LOWER EXTREMITY: GREAT SAPHENOUS VEIN: Saphenofemoral Junction: 0.6 cm; Reflux: 0 ms Proximal Thigh: 0.5 cm; Reflux: 0 ms Mid Thigh: 0.4 cm; Reflux: 0 ms Distal Thigh: 0.3 cm; Reflux: 0 ms At Knee: 0.4 cm; Reflux: 0 ms Below Knee/Proximl calf: 0.3 cm; Reflux: 0 ms Mid Calf: 0.2 cm; Reflux: 0 ms Distal Calf/Ankle: 0.3 cm; Reflux: 0 ms Lateral/Medial accessory GREAT SAPHENOUS VEIN: None imaged SMALL SAPHENOUS VEIN: Drainage: thigh extension Saphenopopliteal Junction: 0.2 cm; Reflux: 0 ms Mid calf: 0.1 cm; Reflux: 0 ms Distal calf: 0.2 cm; Reflux: 0 ms VEIN OF GIACOMINI: Size: NA Reflux: NA PERFORATORS: None imaged VARICOSITIES > 3mm: Location: None Imaged US/US venous duplex LE BI IMPRESSION: Right: Venous incompetence with a greater saphenous vein reflux at the mid thigh Left: No venous reflux is demonstrated. Electronically signed by: Schuyler Wheeler MD 06/26/2025 03:05 PM EDT RP Dictated By: Schuyler Wheeler MD Signed By: <Electronically signed by Schuyler Wheeler MD in OV> 06/26/25 1505 DD/ 1350 TD/TT: 06/26/25 1419 Counterintelligence Analyst: [facility] External Provider CV VASC ULAR PROCEDURES Final Result Performing Organization Address [facility] Co de Phone Number [facility] [address] [place] [phone] * Hemoglobin A1c (11/24/2024 12:10 PM EST) Hemoglobin A1c 5.7 <6.0 % [facility] Comment:Hemoglobin A1C Refer ence Range Adults: 4.8 - 6.0 % Non diabetic: < 6.0 % Goal: < 7.0 %Additional Action Suggested: > 8.0 %Note: Hemoglobin A1c results are invalid for patients with abnormal amounts of HbF. Blood transfusions may impact the HbA1c concentration in the patient sample. Estimated Average Glucose 117 mg/dL [facility] Comment:eAG = Estimated ave rage glucose which is %A1C expressed asaverage glucose, using the formula of the F2L-OkorlfjYmihwoy Glucose study (ADAG), Diabetes Care, Vol.31,#8,Jun. 2007 Blood Venous blood specimen / Unknown 11/24/2024 12:10 PM EST 11/24/2024 1:22 PM EST Mary Carmen Mckeon MD LAB BLOOD ORDERABLES Final Result Performing Organization Address [facility] Co de Phone Number [facility] [address] [place] [phone] * Lipid Panel, Standard (11/24/2024 12:10 PM EST) Triglycerides 75 <150 mg/dL [facility] Comment:Desirable Triglyceri de: less than 150 mg/dLBorderline High Triglyceride 150-199 mg/dLHigh Triglyceride: 200-499 mg/dLVery High Triglyceride: greater than or equal to 5OO mg/dL Cholesterol 118 <200 mg/dL [facility] Comment:Desirable Cholestero l: less than 200 mg/dLBorderline High Cholesterol: 200-239 mg/dLHigh Cholesterol: greater than 239 mg/dL LDL Cholesterol Calculated 61 <100 mg/dL [facility] Comment:Desirable LDL: less than 100 mg/dLNear Optimal/Above Optimal LDL: 110- 129 mg/dLBorderline High LDL: 130-159 mg/dLHigh LDL: 160-189 mg/dLVery High LDL: greater than or equal to 190 mg/dL HDL Cholesterol 42 >40 mg/dL [facility] Comment:Desirable HDL: great er than 40 mg/dL Note: This HDL assay may give artificially low results in patients with liver disease. Blood Venous blood specimen / Unknown 11/24/2024 12:10 PM EST 11/24/2024 1:22 PM EST us Mary Carmen Mckeon MD LAB BLOOD ORDERABLES Final Result [facility] [address] [place] [phone] * Cologuard?? colon cancer screening (05/23/2024 12:00 PM EDT) Cologuard Result Negative Negative 05/31/20 10:33 AM EDT [facility] (CLIA #:[id number]) Comment: NEGATIVE TEST RESULT. A negative Cologuard [...] (Tigre Spivey al, N Engl J Med 2014;370(14):9394-8459) The normal value (reference range) for this assay is negative. COLOGUARD RE-SCREENING RECOMMENDATION: Periodic colorectal cancer screening is an important part of preventive healthcare for asymptomatic individuals at average risk for colorectal cancer. Following a negative Cologuard result, the [place] [employer] Society and U.S. Multi-Society Task Force screening guidelines recommend a Cologuard re-screening interval of 3 years. References: [place] [employer] Guideline for Colorectal Cancer Screening: https://www.cancer.org/cancer/uikqc-cevzsa-iojzqc/rnhnagfxz-gqkewpatw-jmgqsfe/ac s-rec ommendations.html.; Sonny DK, Omar WARD, Rivera POWELL, Colorectal Cancer Screening: Recommendations for Physicians and Patients from the U.S. Multi-Society Task Force on Colorectal Cancer Screening , Am J Gastroenterology 2017; 112:5454-6549. TEST DESCRIPTION: Composite algorithmic analysis of stool [...] screened with both Cologuard and colonoscopy. (Tigre Mcghee, N Engl J Med 2014;370(14):8204-7398.) Cologuard may produce a false negative or false positive result (no colorectal cancer or precancerous polyp present at colonoscopy follow up). A negative Cologuard test result does not guarantee the absence of CRC or advanced adenoma (pre-cancer). The current Cologuard screening interval is every 3 years. ([place] [employer] Society and U.S. Multi-Society Task Force). Cologuard performance data in a 10,000 patient pivotal study using colonoscopy as the reference method can be accessed at the following location: www.[employer].Pretty Padded Room/results. Additional description of the Cologuard test process, warnings and precautions can be found at www.cologuard.com. Stool specimen (specimen) 05/23/2024 12:00 PM EDT 05/25/2024 1:43 PM EDT Mary Carmen Mckeon MD LAB MOLECULAR DIAGNOSTICS ORDERABLES Final Result [facility] (CLIA #:[id number]) [address] [place] [address], * HIV Ab/Ag ([place] DPH) (05/21/2023 10:58 AM EDT) HIV AB/AG Nonreactive Nonreactive [facility] Comment:HIV-1 p24 Ag and/or HIV-1/HIV-2 Ab not detected.A test result that is nonreactive does not exclude thepossibility of exposure to or infection with HIV-1 and/orHIV-2. Nonreactive results in this assay for individualswith prior exposure to HIV-1 and/or HIV-2 may be due toantigen and antibody levels that are below the limit ofdetection of this assay.The Najera Snow Groomer HIV Ag/Ab Combo assay result andsupplemental assay results should be interpreted inconjunction with the patient's clinical presentation,history and other laboratory results. If the results areinconsistent with clinical evidence, additional testing issuggested to confirm the result. 05/21/2023 10:5 8 AM EDT 05/21/2023 1:35 PM EDT Mary Carmen Mckeon MD LAB BLOOD ORDERABLES Final Result [facility] [address] [place] [phone] * HM Hepatitis C Antibody (09/09/2018) Hepatitis C Antibody Nonreactive Blood Historical Provider HEALTH MAINTENANCE Final Result from Last 3 Months or Most Recently Relevant to Health Maintenance Insurance [facility] < 65 [facility] [address] [place] Advance Directives Documents on File Type Date Recorded Patient Ply Bander Expl anation Advance Directives and Living Will 05/11/2024 2:35 PM Health Care Proxy Care Teams Legal Transcriber Relationship Specialty Start Date End Date Mike, MD Mary Carmen [address] [place] [address] PCP - General Family Medicine 10/04/18 Suly Mendoza, JamaD [address] [place] [address] Pharmacist Internal Medicine 08/17/24 Quiana Keene [address] - [address] [place] [address] Plastic Surgery 01/06/25 Sintia Petty [address] [place] [phone] Pain Medicine 03/28/25 Kimmie Zamora MD [address] [place] [address] Sleep Medicine 03/29/25 Addison Araujo STOCK COUNTER Cardiology 11/24/24 Jeanie Day PA-C Vascular Surgery 04/21/25
--- OUTSIDE RECORDS SUMMARY | 2025-07-04 14:17 | XMS_ITS | Encounter Summary ---
Author Organization [employer] Address 75 [facility] 7t [place] [address] Care Team Providers Care Machine Guide Base Winder Name Role Phone Mary Carmen Mckeon MD Primary Care Provider Suly Mendoza PharmD Unavailable [phone] Quiana Keene Unavailable Sintia Petty Unavailable Kimmie Zamora MD Unavailable Reason for Visit * Reason Comments Med Refill Encounter Details Date Type Department Care Team (Late st Contact Info) Description 04/10/2025 Refill [facility] MEDICINE 230 [place], [place] [phone] Mary Carmen Mckeon MD 230 [place], [place] [phone] Class 3 severe obesity due to excess [...] Description 08/16/2025 10:15 AM EDT Office Visit [facility] [address] [place] [address] Mary Carmen Mckeon MD 230 [place] [address] documented as of this encounter Goals Goal [...] as of this encounter Care Teams Machine Guide Base Winder Relationship Specialty Start Date End Date Mary Carmen Mckeon MD 230 [place] [address] PCP - General Family Medicine 10/04/18 Suly Mendoza PharmD 230 [place] [address] Pharmacist Internal Medicine 08/17/24 Quiana Keene [address] Plastic Surgery 01/06/25 Sintia Petty [address] [place] [address] [address] [place] [address] Pain Medicine 03/28/25 Kimmie Zamora MD [address] [place] [address] Sleep Medicine 03/29/25 Addison Araujo ASSEMBLER TUBING Cardiology 11/24/24 Jeanie Day PA-C Vascular Surgery 04/21/25 documented as of this encounter
--- OUTSIDE RECORDS SUMMARY | 2025-07-04 14:17 | XMS_ITS | Encounter Summary ---
Author Organization [employer] Address 75 [facility] 7 [place] [address] Care Team Providers Care Food Sales Clerk Name Role Phone Mary Carmen Mckeon MD Primary Care Provider +1- [phone] Suly Mendoza PharmD Unavailable [phone] Quiana Keene Unavailable Sintia Petty Unavailable Kimmie Zamora MD Unavailable Reason for Visit * Reason Onset Date Comments Results 07/13/2024 Encounter Details Date Type Department Care Team (Late st Contact Info) Description 07/13/[address] [facility] MEDICINE 230 [place], [place] [phone] Mary Carmen Mckeon MD 230 [place], [place] [phone] Results Social History Tobacco Use Types Packs/Day [...] results: Urine Date when done: 07/12 Facility: [facility] Patient is requesting for results to be faxed to [phone] Attention Randolph documented in this encounter Plan of Treatment Upcoming Encounters Date Type Department Care Team (Late st Contact Info) Description 08/16/2025 10:15 AM EDT Office Visit [facility] MEDICINE [address] [place] [address] Mary Carmen Mckeon MD 230 [place] [address] documented as of this encounter Goals Goal [...] documented as of this encounter Care Teams Food Sales Clerk Relationship Specialty Start Date End Date Mary Carmen Mckeon MD 230 [place] [address] PCP - General Family Medicine 10/04/18 Suly Mendoza, PharmD 230 [place] [address] Pharmacist Internal Medicine 08/17/24 Quiana Keene [address] Plastic Surgery 01/06/25 Sintia Petty [address] [place] [address] Pain Medicine 03/28/25 Kimmie Zamora MD [address] [place] [address] Sleep Medicine 03/29/25 Addison Araujo OPERATIONS SUPPORT COORDINATOR Cardiology 11/24/24 Jeanie Day PA-C Vascular Surgery 04/21/25 documented as of this encounter
--- OUTSIDE RECORDS SUMMARY | 2025-07-04 14:17 | XMS_ITS | Encounter Summary ---
Author Organization [employer] Address 75 [facility] 7 [place] [address] Care Team Providers Care Enrollment Nurse Name Role Phone Mary Carmen Mckeon MD Primary Care Provider [phone]- [phone] Suly Mendoza PharmD Unavailable Quiana Keene Unavailable Sintia Petty Unavailable Kimmie Zamora MD Unavailable Reason for Visit * Reason Onset Date Comments Call Back Request 12/11/2023 Encounter Details Date Type Department Care Team (Late st Contact Info) Description 12/11/2023 Telephone [facility] MEDICINE 230 [place] [address] Mary Carmen Mckeon MD 230 [place] [address] Call Back Request Social History Tobacco Use [...] 10:15 AM EDT Office Visit [facility] MEDICINE 230 [place] [address] Mary Carmen Mckeon MD 230 [place], [place] [phone] documented as of this encounter Visit Diagnoses Not on filedocumented in this encounter Additional Health Concerns Assessment Noted Time PHQ-9 Depression Total Score: 0 05/21/20 23 9:36 AM EDT documented as of this encounter Care Teams Enrollment Nurse Relationship Specialty Start Date End Date Mary Carmen Mckeon MD 230 [place] [address] PCP - General Family Medicine 10/04/18 Suly Mendoza PharmD 230 [place] [address] Pharmacist Internal Medicine 08/17/24 Quiana Keene [address] Plastic Surgery 01/06/25 Sintia Petty [address] [place] [address] Drive [address] [place] [address] Pain Medicine 03/28/25 Kimmie Zamora MD [address] [place] [address] Sleep Medicine 03/29/25 Addison Araujo TOOL LIAISON Cardiology 11/24/24 Jeanie Day PA-C Vascular Surgery 04/21/25 documented as of this encounter
--- OUTSIDE RECORDS SUMMARY | 2025-07-04 14:17 | XMS_ITS | Clinical Summary ---
Author Organization [facility] Address [address] [place] [address] Care Team Providers Care Radiator Core Tester Name Role Phone Mary Carmen Mckeon Primary Care Provider +1- [phone] Allergies No known active allergies Medications estradioL [...] 1965 CT Lung Cancer Screening (Baseline) 2015 Hepatitis B Vaccines (3 of 3 - 19+ 3-dose series) 07/05/2024 05/10/2024, 05/21/2023 Alcohol/Substance Use Screening 11/02/2024 Depression Screening and Follow-Up 11/02/2024 Social Drivers of Health Brianne ual Screening 11/02/2024 RSV Vaccine (60+ years old a nd patients) (1 - Risk 60-74 years 1-dose series) 2025 FOBT / Fit Test 05/10/2025 05/10/2024 COVID-19 Vaccine (3 - 2024-2 6 season) 2025 05/21/2023, 03/05/2021 Influenza Vaccine (#1) 2025 , 11/03/2019, 09/09/2018, Additional history exists Diabetes Screening 05/10/2027 05/10/2024 Cologuard 05/23/2027 05/23/2024 Colon Cancer Screening 05/23/2027 DTaP,Tdap,and Td Vaccines (2 - Td or Tdap) 12/24/2027 12/24/2017 Zoster Vaccines Completed 05/21/2023, 12/02/2022 Pneumococcal Vaccine: 50+ Years Completed Insurance [facility] Advance Directives Documents on File Type Date Recorded Patient Receiving Team Member Expl anation Health Care Proxy 07/26/2024 12:55 PM * Full Code (Latest Code Status on File) Date Activated Date Inactivated Comments 07/26/2024 11:45 AM 07/26/2024 6:21 PM Care Teams Radiator Core Tester Relationship Specialty Start Date End Date Rincon, Mary Carmen Lance [address] [place] [address] PCP - General Family Medicine 08/24/23
--- OUTSIDE RECORDS SUMMARY | 2025-07-04 14:17 | XMS_ITS | Encounter Summary ---
Author Organization [employer] Address 75 [facility] 7t [place] [address] Care Team Providers Care Interventional Tech Name Role Phone Mary Carmen Mckeon MD Primary Care Provider Suly Mendoza PharmD Unavailable Quiana Keene Unavailable Sintia Petty Unavailable Kimmie Zamora MD Unavailable Reason for Visit * Reason Onset Date Comments Med Refill 07/01/2025 Prior Authorization 07/01/2025 KAROLINA PA: Everett bernal Encounter Details Date Type Department Care Team (Late st Contact Info) Description 07/01/2025 Refill [facility] MEDICINE 230 [place] [address] Mary Carmen Mckeon MD 230 [place], [place] [phone] Class 3 severe obesity due to excess [...] encounter Miscellaneous Notes * Telephone Encounter - Kellee Corcoran - 07/04/2025 2:15 PM EDT PA initiated on Covermymeds for Zep[employer]. Approval/denial pending. (Kerr: [id number]) Rx #: [id number] documented in this encounter Plan of Treatment Upcoming Encounters Date Type Department Care Team (Late st Contact Info) Description 08/16/2025 10:15 AM EDT Office Visit [facility] MEDICINE [address] [place] [address] Mary Carmen Mckeon MD 230 [place], [place] [phone] documented as of this encounter Goals Goal [...] documented as of this encounter Care Teams Interventional Tech Relationship Specialty Start Date End Date Mary Carmen Mckeon MD 230 [place] [address] PCP - General Family Medicine 10/04/18 Suly Mendoza PharmD 230 [place] [address] Pharmacist Internal Medicine 08/17/24 Quiana Keene [address] Plastic Surgery 01/06/25 Sintia Petty [address] [place] [address] Pain Medicine 03/28/25 Kimmie Zamora MD [address] [place] [address] Sleep Medicine 03/29/25 Addison Araujo CARPENTERS HELPER Cardiology 11/24/24 Jeanie Day PA-C Vascular Surgery 04/21/25 documented as of this encounter
--- OUTSIDE RECORDS SUMMARY | 2025-07-04 14:17 | XMS_ITS | Encounter Summary ---
Author Organization [employer] Address 75 [facility] 7t [place] [address] Care Team Providers Care Math And Science Instructor Name Role Phone Mary Carmen Mckeon MD Primary Care Provider Suly Mendoza PharmD Unavailable Quiana Keene Unavailable Sintia Petty Unavailable iKmmie Zamora MD Unavailable Encounter Details Date Type Department Care Team (Late st Contact Info) Description 02/21/2025 Orders Only [facility] MEDICINE 230 [place], [place] [phone] Mary Carmen Mckeon MD 230 [place], [place] [phone] Gender dysphoria Social History Tobacco Use Types [...] Visit [facility] MEDICINE [address] [place] [address] Mary Carmen Mckeon MD [address] [place] [address] documented as of this encounter Goals Goal [...] documented as of this encounter Care Teams Math And Science Instructor Relationship Specialty Start Date End Date Mary Carmen Mckeon MD [address] [place] [address] PCP - General Family Medicine 10/04/18 Suly Mendoza PharmD 230 [place] [address] Pharmacist Internal Medicine 08/17/24 Quiana Keene [address] - [address] [place] [address] Plastic Surgery 01/06/25 Sintia Petty [address] [place] [address] Drive [address] [place] [address] Pain Medicine 03/28/25 Kimmie Zamora MD [address] [place] [address] Sleep Medicine 03/29/25 Addison Araujo COIL CONNECTOR REPAIRER Cardiology 11/24/24 Jeanie Day PA-C Vascular Surgery 04/21/25 documented as of this encounter
--- OUTSIDE RECORDS SUMMARY | 2025-07-04 14:17 | XMS_ITS | Encounter Summary ---
Author Organization [employer] Address 75 [facility] 7t [place] [address] Care Team Providers Care Caster Operator Name Role Phone Mary Carmen Mckeon MD Primary Care Provider +1- [phone] Suly Mendoza PharmD Unavailable [phone] Quiana Keene Unavailable Sintia Petty Unavailable Kimmie Zamora MD Unavailable Reason for Visit * Reason Comments Med Refill Encounter Details Date Type Department Care Team (Late st Contact Info) Description 02/17/2023 Refill [facility] [address] [place] [address] Mary Carmen Mckeon MD [address] [place] [address] [phone] Pain Social History Tobacco Use Types Packs/Day [...] 10:15 AM EDT Office Visit [facility] MEDICINE 230 [place], [place] [phone] Mary Carmen Mckeon MD 230 [place] [address] documented as of this encounter Visit Diagnoses Diagnosis Pain Generalized pain documented in this encounter Care Teams Caster Operator Relationship Specialty Start Date End Date Mary Carmen Mckeon MD 230 [place] [address] PCP - General Family Medicine 10/04/18 Suly Mendoza, JamaD 230 [place] [address] Pharmacist Internal Medicine 08/17/24 Quiana Keene [address] Plastic Surgery 01/06/25 Sintia Petty [address] [place] [address] Pain Medicine 03/28/25 Kimmie Zamora MD 7[address] [place] [address] Sleep Medicine 03/29/25 Addison Araujo TRACK RIDER Cardiology 11/24/24 Jeanie Day PA-C Vascular Surgery 04/21/25 documented as of this encounter
--- OUTSIDE RECORDS SUMMARY | 2025-07-04 14:17 | XMS_ITS | Encounter Summary ---
Author Organization [employer] Address 75 [facility] 7 [place] [address] Care Team Providers Care Trim Machine Adjuster Name Role Phone Mary Carmen Mckeon MD Primary Care Provider +1- [phone] Suly Mendoza PharmD Unavailable Quiana Keene Unavailable Sintia Petty Unavailable Kimmie Zamora MD Unavailable Reason for Visit * Reason Comments Med Refill Encounter Details Date Type Department Care Team (Late st Contact Info) Description 07/16/2023 Refill [facility] 230 [place] [address] Massiel Orourke MD 230 [place], [place] [phone] Pain Social History Tobacco Use Types Packs/Day [...] Description 08/16/2025 10:15 AM EDT Office Visit [facility] 230 [place] [address] Mary Carmen Mckeon MD 230 [place] [address] documented as of this encounter Visit Diagnoses Diagnosis Pain Generalized pain documented in this encounter Additional Health Concerns Assessment Noted Time PHQ-9 Depression Total Score: 0 05/21/20 9:36 AM EDT documented as of this encounter Care Teams Trim Machine Adjuster Relationship Specialty Start Date End Date Mary Carmen Mckeon MD 230 [place] [address] PCP - General Family Medicine 10/04/18 Suly Mendoza PharmD 230 [place] [address] Pharmacist Internal Medicine 08/17/24 Quiana Keene [address] - [address] [place] [address] Plastic Surgery 01/06/25 Sintia Petty [address] [place] [address] Pain Medicine 03/28/25 Kimmie Zamora MD 7[address] [place] [address] Sleep Medicine 03/29/25 Addison Araujo HOT DIE PICKER Cardiology 11/24/24 Jeanie Day PA-C Vascular Surgery 04/21/25 documented as of this encounter
--- OUTSIDE RECORDS SUMMARY | 2025-07-04 14:17 | XMS_ITS | Encounter Summary ---
Author Organization [email or web address] Address 75 [facility] 7t [place] [address] Care Team Providers Care Employment Consultant Name Role Phone Mary Carmen Mckeon MD Primary Care Provider +1- [phone] Suly Mendoza PharmD Unavailable Quiana Keene Unavailable Sintia Petty Unavailable Kimmie Zamora MD Unavailable Reason for Visit * Reason Comments Med Refill Encounter Details Date Type Department Care Team (Late st Contact Info) Description 07/29/2023 Refill [facility]S [address] [place], [place] [phone] Mary Carmen Mckeon MD 230 [place], [place] [phone] Social History Tobacco Use Types Packs/Day Years [...] Description 08/16/2025 10:15 AM EDT Office Visit [facility] MEDICINE 230 [place] [address] Mary Carmen Mckeon MD 230 [place] [address] documented as of this encounter Visit Diagnoses Not on filedocumented in this encounter Additional Health Concerns Assessment Noted Time PHQ-9 Depression Total Score: 0 05/21/20 9:36 AM EDT documented as of this encounter Care Teams Employment Consultant Relationship Specialty Start Date End Date Mary Carmen Mckeon MD 230 [place], [place] [phone] PCP - General Family Medicine 10/04/18 Suly Mendoza PharmD 230 [place] [address] Pharmacist Internal Medicine 08/17/24 Quiana Keene [address] - [address] [place] [address] Plastic Surgery 01/06/25 Sintia Petty [address] [facility] [address] [place] [address] Pain Medicine 03/28/25 Kimmie Zamora MD [address] [place] [address] Sleep Medicine 03/29/25 Addison Araujo HIGH RISK OB Cardiology 11/24/24 Jeanie Day PA-C Vascular Surgery 04/21/25 documented as of this encounter
--- OUTSIDE RECORDS SUMMARY | 2025-07-04 14:17 | XMS_ITS | Encounter Summary ---
Author Organization [email or web address] Address [address] [facility] [address] 7t [place] [address] Care Team Providers Care Mine Safety Director Name Role Phone Mary Carmen Mckeon MD Primary Care Provider Suly Mendoza PharmD Unavailable [phone] Quiana Keene Unavailable Sintia Petty Unavailable Kimmie Zamora MD Unavailable Reason for Visit * Reason Comments Med Refill Encounter Details Date Type Department Care Team (Late st Contact Info) Description 10/03/2024 Refill [facility] [address] [place], [place] [phone] Mary Carmen Mckeon MD 230 [place], [place] [phone] At high risk for coronary artery disease; [...] AM EDT Office Visit [facility] MEDICINE [address] [place] [address] Mary Carmen Mckeon MD [address] [place] [address] documented as of this encounter Goals Goal [...] documented as of this encounter Care Teams Mine Safety Director Relationship Specialty Start Date End Date Mary Carmen Mckeon MD [address] [place] [address] PCP - General Family Medicine 10/04/18 Suly Mendoza PharmD 230 [place] [address] Pharmacist Internal Medicine 08/17/24 Quiana Keene [address] - [address] [place] [address] Plastic Surgery 01/06/25 Sintia Petty [address] [facility] [address] [place] [address] Pain Medicine 03/28/25 Kimmie Zamora MD [address] [place] [address] Sleep Medicine 03/29/25 Addison Araujo SHRIMP PICKER Cardiology 11/24/24 Jeanie Day PA-C Vascular Surgery 04/21/25 documented as of this encounter
--- OUTSIDE RECORDS SUMMARY | 2025-07-04 14:17 | XMS_ITS | Encounter Summary ---
Author Organization [employer] Address 75 [facility] 7t [place] [address] Care Team Providers Care Derrick Boat Runner Name Role Phone Mary Carmen Mckeon MD Primary Care Provider +1- [phone] Suly Mendoza PharmD Unavailable [phone] Quiana Keene Unavailable Sintia Petty Unavailable Kimmie Zamora MD Unavailable Encounter Details Date Type Department Care Team (Late st Contact Info) Description 11/10/2022 Orders Only [facility]S [address] [place] [address] Darlene Luis LPN Social History Tobacco Use [...] Description 08/16/2025 10:15 AM EDT Office Visit [facility] MEDICINE 230 [place], [place] [phone] Mary Carmen Mckeon MD 230 [place], [place] [phone] documented as of this encounter Visit Diagnoses Not on filedocumented in this encounter Care Teams Derrick Boat Runner Relationship Specialty Start Date End Date Mary Carmen Mckeon MD 230 [place] [address] PCP - General Family Medicine 10/04/18 Suly Mendoza PharmD 230 [place] [address] Pharmacist Internal Medicine 08/17/24 Quiana Keene [address] Plastic Surgery 01/06/25 Sintia Petty [address] [place] [address] [address] [place] [address] Pain Medicine 03/28/25 Kimmie aZmora MD 9 [place] [address] Sleep Medicine 03/29/25 Addison Araujo FEED HOUSE SUPERVISOR Cardiology 11/24/24 Jeanie Day PA-C Vascular Surgery 04/21/25 documented as of this encounter
--- OUTSIDE RECORDS SUMMARY | 2025-07-04 14:17 | XMS_ITS | Clinical Summary ---
Author Organization [facility] Address [address] [facility] [address] [place] [address] Phone Care Team Providers Care Engineering Job Titles Name Role Phone Mary Carmen Mckeon MD [...] of 2) 2015 LIPID PANEL 12/24/2022 12/24/2017 INFLUENZA VACCINE (#1) 2025 8, 12/24/2017 COVID-19 VACCINE (1 - 2023-2 5 season) 2025 Adult Td,Tdap Booster 12/24/2027 12/24/2017 , 01/13/2013 [...] topic Medical Devices Not on file Insurance [facility]AC[facility] [employer] ONE CARE MEDICARE REPLACEMENT [facility] RE[facility] REPLACEMENT [facility] REPLACEMENT [facility] CARE MEDICARE REPLACEMENT [facility] ONE CARE MEDICARE REPLACEMENT Care Teams Engineering Job Titles Relationship Specialty Start Date End Date Mike, Mary Carmen Santoro MD [address] [place] [address] PCP - General Family Medicine 09/14/18 Additional Source Comments The information contained in this document represents components of the legal health record. It is not the complete legal health record.[facility]
--- OUTSIDE RECORDS SUMMARY | 2025-07-04 14:17 | XMS_ITS | Encounter Summary ---
Author Organization [employer] Address 75 [facility] 7 [place] [address] Care Team Providers Care C Programmer Name Role Phone Mary Carmen Mckeon MD Primary Care Provider + [phone] Suly Mendoza PharmD Unavailable Quiana Keene Unavailable Sintia Petty Unavailable Kimmie Zamora MD Unavailable Reason for Visit * Reason Comments Med Refill Encounter Details Date Type Department Care Team (Late st Contact Info) Description 04/14/2025 Refill [facility] MEDICINE 230 [place], [place] [phone] Mary Carmen Mckeon MD 230 [place], [place] [phone] Gender dysphoria Social History Tobacco Use Types [...] the past 12 months, has t he [employer] gas, oil or water company threatened to [...] Description 08/16/2025 10:15 AM EDT Office Visit [facility] MEDICINE [address] [place] [address] Mary Carmen Mckeon MD [address] [place] [address] documented as of this encounter Goals Goal [...] documented as of this encounter Care Teams C Programmer Relationship Specialty Start Date End Date Mary Carmen Mckeon MD 230 [place] [address] PCP - General Family Medicine 10/04/18 Suly Mendoza PharmD 230 [place] [address] Pharmacist Internal Medicine 08/17/24 Quiana Keene [address] Plastic Surgery 01/06/25 Sintia Petty [address] [place] [address] Drive [address] [place] [address] Pain Medicine 03/28/25 Kimmie Zamora MD [address] [place] [address] Sleep Medicine 03/29/25 Addison Araujo STRAPPER AND BUFFER Cardiology 11/24/24 Jeanie Day PA-C Vascular Surgery 04/21/25 documented as of this encounter
--- OUTSIDE RECORDS SUMMARY | 2025-07-04 14:17 | XMS_ITS | Encounter Summary ---
Author Organization [employer] Address 75 [facility] 7t [place] [address] Care Team Providers Care Acute Coordinator Name Role Phone Mary Carmen Mckeon MD Primary Care Provider +1- [phone] Suly Mendoza PharmD Unavailable [phone] Quiana Keene Unavailable Sintia Petty Unavailable Kimmie Zamora MD Unavailable Reason for Visit * Reason Comments Med Refill Encounter Details Date Type Department Care Team (Late st Contact Info) Description 12/25/2022 Refill [facility] MED & PEDS [address] [place] [address] Mary Carmen Mckeon MD [address] [place] [address] [phone] Pain Social History Tobacco Use Types Packs/Day [...] 08/16/2025 10:15 AM EDT Office Visit [facility] MEDICINE 230 [place], [place] [phone] Mary Carmen Mckeon MD 230 [place] [address] documented as of this encounter Visit Diagnoses Diagnosis Pain Generalized pain documented in this encounter Care Teams Acute Coordinator Relationship Specialty Start Date End Date Mary Carmen Mckeon MD 230 [place] [address] PCP - General Family Medicine 10/04/18 Suly Mendoza, JamaD 230 [place] [address] Pharmacist Internal Medicine 08/17/24 Quiana Keene [address] Plastic Surgery 01/06/25 Sintia Petty [address] [place] [address] Pain Medicine 03/28/25 Kimmie Zamora MD [address] [place] [address] Sleep Medicine 03/29/25 Addison Araujo HVAC SHEET METAL INSTALLER Cardiology 11/24/24 Jeanie Day PA-C Vascular Surgery 04/21/25 documented as of this encounter
--- OUTSIDE RECORDS SUMMARY | 2025-07-04 14:17 | XMS_ITS | Encounter Summary ---
Author Organization [employer] Address [address] [facility] 7t [place] [address] Care Team Providers Care Property Condition Assessor Name Role Phone Mary Carmen Mckeon MD Primary Care Provider [phone] Suly Mendoza PharmD Unavailable [phone] Quiana Keene Unavailable Sintia Petty Unavailable Kimmie Zamora MD Unavailable Reason for Visit * Reason Comments Med Refill Encounter Details Date Type Department Care Team (Late st Contact Info) Description 01/19/[address] [facility] MED & PEDS [address] [place], [place] [phone] Mary Carmen Mckeon MD [address] [place] [address] [phone] At high risk for coronary artery disease [...] 08/16/2025 10:15 AM EDT Office Visit [facility] [address] [place] [address] Mary Carmen Mckeon MD [address] [place] [address] documented as of this encounter Visit Diagnoses Diagnosis At high risk for coronary artery disease documented in this encounter Care Teams Property Condition Assessor Relationship Specialty Start Date End Date Mary Carmen Mckeon MD [address] [place] [address] PCP - General Family Medicine 10/04/18 Suly Mendoza PharmD [address] [place] [address] Pharmacist Internal Medicine 08/17/24 Quiana Keene [address] Plastic Surgery 01/06/25 Sintia Petty [address] [place] [address] Pain Medicine 03/28/25 Kimmie Zamora MD [address] [place] [address] Sleep Medicine 03/29/25 Addison Araujo MACHINE CONTAINER WASHER Cardiology 11/24/24 Jeanie Day PA-C Vascular Surgery 04/21/25 documented as of this encounter
--- OUTSIDE RECORDS SUMMARY | 2025-07-04 14:17 | XMS_ITS | Encounter Summary ---
Author Organization [employer] Address [address] [facility] 7t [place] [address] Care Team Providers Care Arc Trimmer Name Role Phone Mary Carmen Mckeon MD Primary Care Provider [phone] Suly Mendoza PharmD Unavailable Quiana Keene Unavailable Sintia Petty Unavailable Kimmie Zamora MD Unavailable Reason for Visit * Reason Comments Med Refill Encounter Details Date Type Department Care Team (Late st Contact Info) Description 08/05/2023 Refill [facility] MED & PEDS [address] [place], [place] [phone] Mary Carmen Mckeon MD [address] [place], [place] [phone] Social History Tobacco Use Types Packs/Day Years [...] AM EDT Office Visit [facility] MEDICINE [address] [place] [address] Mary Carmen Mckeon MD [address] [place] [address] documented as of this encounter Visit Diagnoses Not on filedocumented in this encounter Additional Health Concerns Assessment Noted Time PHQ-9 Depression Total Score: 0 05/21/20 9:36 AM EDT documented as of this encounter Care Teams Arc Trimmer Relationship Specialty Start Date End Date Mary Carmen Mckeon MD [address] [place], [place] [phone] PCP - General Family Medicine 10/04/18 Suly Mendoza PharmD [address] [place] [address] Pharmacist Internal Medicine 08/17/24 Quiana Keene [address] - [address] [place] [address] Plastic Surgery 01/06/25 Sintia Petty [address] [facility] [address] [place] [address] Pain Medicine 03/28/25 Kimmie Zamora MD [address] [place] [address] Sleep Medicine 03/29/25 Addison Araujo EVENTS INTERN Cardiology 11/24/24 Jeanie Day PA-C Vascular Surgery 04/21/25 documented as of this encounter
--- OUTSIDE RECORDS SUMMARY | 2025-07-04 14:18 | XMS_ITS | Encounter Summary ---
Author Organization [facility] Address [address] [facility] [address] [place] [address] Phone Care Team Providers Care Bread Racker Name Role Phone Lorenzo Roman MD Unavailable [phone] Griselda Thomas MD Primary Care Provider Gonsalo Fontenot MD Unavailable [phone] Mary Carmen Mckeon MD Primary Care Provi daphnie Encounter Details Date Type Department Care Team (Late st Contact Info) Description 05/18/2018 Procedure Pass [facility] Endoscopy Admitting Dept Virtual Department [address] [place] [phone] Social History Tobacco Use Types Packs/Day Years [...] on filedocumented in this encounter Care Teams Bread Racker Relationship Specialty Start Date End Date Griselda Thomas MD [address] [place] [address] [place] [phone] PCP - General Internal Medicine 05/06/18 09/13/18 Mary Carmen Mckeon MD [address] [place] [address] [phone] PCP - General Family Medicine 09/14/18 Lorenzo Roman MD [address] [place] [phone] [email or web address] Insurance Assigned Provider 03/06/18 07/03/18 Gonsalo Fontenot MD [address] [place] [phone] [email or web address] Insurance Assigned Provider 07/03/18 08/07/18 documented as of this encounter Additional Source Comments The information contained in this document represents components of the legal health record. It is not the complete legal health record.[facility]
--- OUTSIDE RECORDS SUMMARY | 2025-07-04 14:18 | XMS_ITS | Encounter Summary ---
Author Organization [employer] Address 75 [facility] 7 [place] [address] Care Team Providers Care Seed Potato Cutter Name Role Phone Mary Carmen Mckeon MD Primary Care Provider [phone] Suly Mendoza PharmD Unavailable [phone] Quiana Keene Unavailable Sintia Petty Unavailable Kimmie Zamora MD Unavailable Reason for Visit * Reason Onset Date Comments Durable Medical Equipment 05/31/2024 Encounter Details Date Type Department Care Team (Late st Contact Info) Description 05/31/2024 Telephone [facility] [address] [place], [place] [phone] Mary Carmen Mckeon MD [address] [place], [place] [phone] Durable Medical Equipment Social History Tobacco Use [...] 10:15 AM EDT Office Visit [facility] [address] [place] [address] Mary Carmen Mckeon MD [address] [place] [address] documented as of this encounter Goals Goal [...] documented as of this encounter Care Teams Seed Potato Cutter Relationship Specialty Start Date End Date Mary Carmen Mckeon MD [address] [place] [address] PCP - General Family Medicine 10/04/18 Suly Mendoza PharmD [address] [place] [address] Pharmacist Internal Medicine 08/17/24 Quiana Keene [address] Plastic Surgery 01/06/25 Sintia Petty [address] [place] [address] Drive [address] [place] [address] Pain Medicine 03/28/25 Kimmie Zamora MD [address] [place] [address] Sleep Medicine 03/29/25 Addison Araujo AWARD CLERK Cardiology 11/24/24 Jeanie Day PA-C Vascular Surgery 04/21/25 documented as of this encounter
--- OUTSIDE RECORDS SUMMARY | 2025-07-04 14:18 | XMS_ITS | Encounter Summary ---
Author Organization [employer] Address [address] [facility] 7 [place] [address] Care Team Providers Care Broadband Installer Name Role Phone Mary Carmen Mckeon MD Primary Care Provider Suly Mendoza PharmD Unavailable Quiana Keene Unavailable Sintia Petty Unavailable Kimmie Zamora MD Unavailable Reason for Visit * Reason Comments Med Refill Encounter Details Date Type Department Care Team (Late st Contact Info) Description 03/30/2024 Refill [facility] CHC MED & PEDS [address] [place], [place] [phone] Mary Carmen Mckeon MD [address] [place], [place] [phone] Pain Social History Tobacco Use Types Packs/Day [...] Description 08/16/2025 10:15 AM EDT Office Visit [facility] MEDICINE [address] [place] [address] Mary Carmen Mckeon MD [address] [place] [address] documented as of this encounter Visit Diagnoses Diagnosis Pain Generalized pain documented in this encounter Additional Health Concerns Assessment Noted Time PHQ-9 Depression Total Score: 0 05/21/20 23 9:36 AM EDT documented as of this encounter Care Teams Broadband Installer Relationship Specialty Start Date End Date Mary Carmen Mckeon MD [address] [place] [address] PCP - General Family Medicine 10/04/18 Suly Mendoza PharmD [address] [place] [address] Pharmacist Internal Medicine 08/17/24 Quiana Keene [address] Plastic Surgery 01/06/25 Sintia Petty [address] [facility] [address] [place] [address] Pain Medicine 03/28/25 Kimmie Zamora MD [address] [place] [address] Sleep Medicine 03/29/25 Addison Araujo HOSTESS Cardiology 11/24/24 Jeanie Day PA-C Vascular Surgery 04/21/25 documented as of this encounter
--- OUTSIDE RECORDS SUMMARY | 2025-07-04 14:18 | XMS_ITS | Encounter Summary ---
Author Organization [employer] Address [address] [facility] 7 [place] [address] Care Team Providers Care Entry Level Web Developer Name Role Phone Mary Carmen Mckeon MD Primary Care Provider [phone] Suly Mendoza PharmD Unavailable Quiana Keene Unavailable Sintia Petty Unavailable Kimmie Zamora MD Unavailable Reason for Visit * Reason Onset Date Comments Med Refill 05/17/2024 Encounter Details Date Type Department Care Team (Late st Contact Info) Description 05/17/2024 Telephone [facility] [address] [place], [place] [phone] Mary Carmen Mckeon MD [address] [place], [place] [phone] Med Refill Social History Tobacco Use Types [...] 25 MG tablet To be sent to: [employer] [place], [place] - [address] [place] [address] documented in this encounter Plan of Treatment Upcoming Encounters Date Type Department Care Team (Late st Contact Info) Description 08/16/2025 10:15 AM EDT Office Visit [facility] [address] [place] [address] Mary Carmen Mckeon MD [address] [place], [place] [phone] documented as of this encounter Visit Diagnoses Not on filedocumented in this encounter Additional Health Concerns Assessment Noted Time PHQ-9 Depression Total Score: 0 05/21/20 23 9:36 AM EDT documented as of this encounter Care Teams Entry Level Web Developer Relationship Specialty Start Date End Date Mary Carmen Mckeon MD [address] [place] [address] PCP - General Family Medicine 10/04/18 Suly Mendoza PharmD [address] [place] [address] Pharmacist Internal Medicine 08/17/24 Quiana Keene [address] Plastic Surgery 01/06/25 Sintia Petty [address] [place] [address] Drive [address] [place] [address] Pain Medicine 03/28/25 Kimmie Zamora MD [address] [place] [address] Sleep Medicine 03/29/25 Addison Araujo HUMAN SERVICES INSTRUCTOR Cardiology 11/24/24 Jeanie Day PA-C Vascular Surgery 04/21/25 documented as of this encounter
== END 2025-07-04 13:50 | disposition home or self-care (01) ==
LOC: HO.HVS 12:59
PROVIDERS: PCP Family Medicine; Visit Provider Surgery Vascular Surgery
DX: I83.11 Varicose veins of right lower extremity with inflammation (principal); I83.12 Varicose veins of left lower extremity with inflammation
CPT/HCPCS: 99214

== ENCOUNTER → 2025-07-04 12:58 | Outpatient (BNVA) | payer OTHER, SELFPAY | PROVIDERS: PCP Family Medicine; Visit Provider Surgery Vascular Surgery | DX: I83.12 Varicose veins of left lower extremity with inflammation (principal); I83.11 Varicose veins of right lower extremity with inflammation | CPT/HCPCS: 99212 ==